=== PATIENT | male | born 1985 | race Caucasian/White ===

== ENCOUNTER 2016-03-26 20:21 | Emergency (ER) | payer MEDICARE, MEDICAID ==
[2016-03-26 21:06] VITALS: BP 133/89
[2016-03-26] MEDS ORDERED: Ofloxacin 0.3% OTIC.SOL* 5 ML BTL RIGHT EAR ONE (21:43)
[2016-03-26] MEDS ORDERED: Amoxicillin PO (*) 500 MG CAP PO ONE (21:43)
[2016-03-26] MEDS ORDERED: HYDROcodone/ACETAMIN 5-325 MG* 1 TAB PO ONE ×2 (21:45→21:46)
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
== END 2016-03-26 22:13 | disposition home or self-care (01) ==
LOC: UCEAST 20:21
DX: H72.91 Unspecified perforation of tympanic membrane, right ear (principal)
CPT/HCPCS: 99212; A9270-GY; G0463

== ENCOUNTER 2016-05-22 15:36 | Emergency (ER) | payer MEDICARE, MEDICAID ==
[2016-05-22 19:11] VITALS: BP 99/64
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
== END 2016-05-22 19:28 | disposition home or self-care (01) ==
LOC: ED 15:36
DX: R56.9 Unspecified convulsions (principal)
CPT/HCPCS: 99282

== ENCOUNTER 2016-06-08 13:36 | Emergency (ER) | payer MEDICARE, MEDICAID ==
[2016-06-08 15:34] LABS: Hematocrit 41 % (42-52); Hemoglobin 13.7 g/dl (14.0-18.0); Mean Corpuscular HGB Conc 34 g/dl (31-36); Mean Corpuscular Hemoglobin 28 pg (27-31); Mean Corpuscular Volume 84 fL (80-94); Mean Platelet Volume 10 um3 (7.4-10.4); Red Blood Count 4.89 10^6/ul (4.0-5.4); Red Cell Distribution Width 14 % (10.5-15); White Blood Count 5.2 10^3/ul (3.5-10.8)
[2016-06-08 15:45] LABS: Albumin 4.4 g/dL (3.2-5.2); Calcium 9.5 mg/dL (8.6-10.3); EGFR African American 134.3 (>60); EGFR Non-African American 104.5 (>60); Globulin 2.8 g/dL (2-4); Potassium 3.7 mmol/L (3.5-5.0); Total Bilirubin 0.5 mg/dL (0.2-1.0); Total Protein 7.2 g/dL (6.4-8.9)
[2016-06-08 17:23] VITALS: BP 104/66
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
== END 2016-06-08 17:27 | disposition home or self-care (01) ==
LOC: ED 13:36
DX: G40.89 Other seizures (principal); R11.0 Nausea
CPT/HCPCS: 36415; 80053; 80164; 83605; 83735; 85025; 85610; 93005; 99283

== ENCOUNTER 2016-06-09 12:49 | Emergency (ER) | payer MEDICARE, MEDICAID ==
[2016-06-09] MEDS ORDERED: NS 0.9% 1000 ML* 1,000 ML IV ONE (13:29)
[2016-06-09 13:49] LABS: Hematocrit 40 % (42-52); Hemoglobin 13.4 g/dl (14.0-18.0); Mean Corpuscular HGB Conc 34 g/dl (31-36); Mean Corpuscular Hemoglobin 28 pg (27-31); Mean Corpuscular Volume 83 fL (80-94); Mean Platelet Volume 9 um3 (7.4-10.4); Red Blood Count 4.83 10^6/ul (4.0-5.4); Red Cell Distribution Width 14 % (10.5-15); White Blood Count 4.5 10^3/ul (3.5-10.8)
[2016-06-09 14:11] LABS: BUN/Creatinine Ratio 21.5 (8-20); C Reactive Protein 5.28 mg/L (< 5.00); Calcium 9.1 mg/dL (8.6-10.3); EGFR African American 146.2 (>60); EGFR Non-African American 113.7 (>60); Globulin 2.7 g/dL (2-4); Magnesium 1.9 mg/dL (1.9-2.7); Potassium 3.9 mmol/L (3.5-5.0); Total Bilirubin 0.5 mg/dL (0.2-1.0); Total Protein 6.7 g/dL (6.4-8.9)
[2016-06-09 14:41] LABS: TSH (Thyroid Stimulating Horm) 1.24 mcIU/mL (0.34-5.60)
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
[2016-06-09 15:15] VITALS: BP 108/73
[2016-06-09 15:31] LABS: Urine Bacteria Absent (Absent); Urine Bilirubin Negative (Negative); Urine Glucose Negative (Negative); Urine Nitrite Negative (Negative)
== END 2016-06-09 15:21 | disposition home or self-care (01) ==
LOC: ED 12:49
DX: G40.802 Other epilepsy, not intractable, without status epilepticus (principal); R55 Syncope and collapse
CPT/HCPCS: 36415; 80053; 80164; 81003; 81015; 82550; 82553; 83605; 83690; 83735; 84443; 85025; 85610; 85730; 86140; 87086; 96360; 99283

== ENCOUNTER 2016-08-05 14:33 | Emergency (ER) | payer MEDICARE, MEDICAID ==
[2016-08-05 14:40] VITALS: BP 135/89
[2016-08-05] MEDS ORDERED: NS 0.9% 1000 ML* 1,000 ML IV SCH (15:45)
[2016-08-05] MEDS ORDERED: Divalproex DR TAB(*) 500 MG PO ONE (15:46)
[2016-08-05] MEDS ORDERED: NS 0.9% 1000 ML* 1,000 ML IV ONE (15:46)
[2016-08-05 16:00] LABS: Hematocrit 41 % (42-52); Hemoglobin 13.9 g/dl (14.0-18.0); Mean Corpuscular HGB Conc 34 g/dl (31-36); Mean Corpuscular Hemoglobin 29 pg (27-31); Mean Corpuscular Volume 86 fL (80-94); Mean Platelet Volume 10 um3 (7.4-10.4); Red Blood Count 4.79 10^6/ul (4.0-5.4); Red Cell Distribution Width 14 % (10.5-15); White Blood Count 5.5 10^3/ul (3.5-10.8)
[2016-08-05 16:11] LABS: Albumin 4.5 g/dL (3.2-5.2); Calcium 9.6 mg/dL (8.6-10.3); EGFR African American 111.4 (>60); EGFR Non-African American 86.6 (>60); Globulin 2.8 g/dL (2-4); Potassium 3.6 mmol/L (3.5-5.0); Total Bilirubin 0.5 mg/dL (0.2-1.0); Total Protein 7.3 g/dL (6.4-8.9)
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
== END 2016-08-05 18:31 | disposition home or self-care (01) ==
LOC: ED 14:33
DX: G40.909 Epilepsy, unspecified, not intractable, without status epilepticus (principal)
CPT/HCPCS: 36415; 80053; 80164; 82550; 83605; 83690; 83735; 85025; 85610; 99284; A9270-GY

== ENCOUNTER 2016-09-15 03:03 | Emergency (ER) | payer MEDICARE, MEDICAID ==
[2016-09-15] MEDS ORDERED: NS 0.9% 1000 ML* 1,000 ML IV ONE (03:13)
[2016-09-15 03:25] LABS: Hematocrit 44 % (42-52); Hemoglobin 14.8 g/dl (14.0-18.0); Mean Corpuscular HGB Conc 34 g/dl (31-36); Mean Corpuscular Hemoglobin 29 pg (27-31); Mean Corpuscular Volume 85 fL (80-94); Mean Platelet Volume 9 um3 (7.4-10.4); Red Blood Count 5.11 10^6/ul (4.0-5.4); Red Cell Distribution Width 13 % (10.5-15); White Blood Count 6.7 10^3/ul (3.5-10.8)
[2016-09-15 03:41] LABS: Albumin 4.5 g/dL (3.2-5.2); BUN/Creatinine Ratio 13.5 (8-20); C Reactive Protein 6.21 mg/L (< 5.00); Calcium 9.3 mg/dL (8.6-10.3); EGFR African American 157.6 (>60); EGFR Non-African American 122.6 (>60); Globulin 2.9 g/dL (2-4); Potassium 3.8 mmol/L (3.5-5.0); Total Bilirubin 0.4 mg/dL (0.2-1.0); Total Protein 7.4 g/dL (6.4-8.9)
[2016-09-15 03:44] LABS: Troponin I 0.01 ng/mL (<0.04)
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
[2016-09-15 04:15] VITALS: BP 127/80
--- NOTE | 2016-09-15 07:54 | RAD ---
Indication: Chest pain. 2 views of the chest are reviewed including dual energy PA views. Comparison is made with previous exam dated December 24, 2015. No mediastinal shift is noted. Heart is of normal size and configuration. Lung colón demonstrate no pleural fluid, pneumonia or pneumothorax. IMPRESSION: No active cardiopulmonary disease is noted.
== END 2016-09-15 04:10 | disposition home or self-care (01) ==
LOC: ED 03:03
DX: R07.9 Chest pain, unspecified (principal); R11.10 Vomiting, unspecified
CPT/HCPCS: 36415; 71020; 80053; 83605; 83690; 84484; 85025; 85610; 86140; 93005; 99282

== ENCOUNTER 2016-10-13 15:17 | Emergency (ER) | payer MEDICARE, MEDICAID ==
[2016-10-13 16:30] LABS: Hematocrit 39 % (42-52); Hemoglobin 13.1 g/dl (14.0-18.0); Mean Corpuscular HGB Conc 34 g/dl (31-36); Mean Corpuscular Hemoglobin 29 pg (27-31); Mean Corpuscular Volume 85 fL (80-94); Mean Platelet Volume 9 um3 (7.4-10.4); Red Blood Count 4.56 10^6/ul (4.0-5.4); Red Cell Distribution Width 13 % (10.5-15); White Blood Count 4.8 10^3/ul (3.5-10.8)
[2016-10-13 16:55] LABS: Albumin 4.1 g/dL (3.2-5.2); BUN/Creatinine Ratio 14.3 (8-20); Calcium 8.8 mg/dL (8.6-10.3); EGFR African American 105.3 (>60); EGFR Non-African American 81.9 (>60); Globulin 2.4 g/dL (2-4); Magnesium 1.8 mg/dL (1.9-2.7); Total Bilirubin 0.3 mg/dL (0.2-1.0); Total Protein 6.5 g/dL (6.4-8.9)
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
[2016-10-13 17:56] VITALS: BP 105/58
[2016-10-13 18:14] LABS: Urine Bilirubin Negative (Negative); Urine Glucose Negative (Negative); Urine Nitrite Negative (Negative)
== END 2016-10-13 18:17 | disposition home or self-care (01) ==
LOC: ED 15:17
DX: G40.909 Epilepsy, unspecified, not intractable, without status epilepticus (principal)
CPT/HCPCS: 36415; 80053; 80164; 81003; 83605; 83735; 85025; 85610; 93005; 99283

== ENCOUNTER 2017-03-31 20:54 | Emergency (ER) | payer MEDICARE, MEDICAID ==
[2017-03-31] MEDS ORDERED: Ketorolac INJ* 30 MG/ML 1 ML VIAL IV PUSH ONE (21:33)
[2017-03-31] MEDS ORDERED: NS 0.9% 1000 ML* 1,000 ML IV ONE (21:33)
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
[2017-03-31 22:09] LABS: ABS Basophils 0 10^3/ul (0-0.2); ABS Eosinophils 0 10^3/ul (0-0.6); ABS Lymphocytes 1.8 10^3/ul (1.0-4.8); ABS Monocytes 0.5 10^3/ul (0-0.8); ABS Neutrophils 2.6 10^3/ul (1.5-7.7); ABS Nucleated RBC 0 10^3/ul; Eosinophil % 0.9 % (0-6); Hematocrit 41 % (42-52); Hemoglobin 14.1 g/dl (14.0-18.0); Lymphocyte % 36.4 % (25-47); Mean Corpuscular HGB Conc 34 g/dl (31-36); Mean Corpuscular Hemoglobin 29 pg (27-31); Mean Corpuscular Volume 84 fL (80-94); Mean Platelet Volume 9 um3 (7.4-10.4); Nucleated Red Blood Cells % 0.1; Platelet Count 142 10^3/ul (150-450); Red Blood Count 4.89 10^6/ul (4.0-5.4); Red Cell Distribution Width 14 % (10.5-15)
[2017-03-31 22:23] LABS: EGFR Non-African American 119.9 (>60)
[2017-03-31 23:24] VITALS: BP 104/60
== END 2017-03-31 23:28 | disposition home or self-care (01) ==
LOC: ED 20:54
DX: R10.9 Unspecified abdominal pain (principal); R19.7 Diarrhea, unspecified
CPT/HCPCS: 36415; 80053; 83690; 85025; 86141; 96374; 99283; J1885

== ENCOUNTER 2017-05-30 15:30 | Emergency (ER) | payer MEDICARE, MEDICAID ==
[2017-05-30] MEDS ORDERED: NS 0.9% 1000 ML* 1,000 ML IV ONE (15:51)
[2017-05-30 16:13] LABS: ABS Basophils 0 10^3/ul (0-0.2); ABS Eosinophils 0.1 10^3/ul (0-0.6); ABS Lymphocytes 1.8 10^3/ul (1.0-4.8); ABS Monocytes 0.4 10^3/ul (0-0.8); ABS Neutrophils 2.4 10^3/ul (1.5-7.7); ABS Nucleated RBC 0 10^3/ul; Eosinophil % 1.7 % (0-6); Hematocrit 39 % (42-52); Hemoglobin 13.4 g/dl (14.0-18.0); Lymphocyte % 37.7 % (25-47); Mean Corpuscular HGB Conc 34 g/dl (31-36); Mean Corpuscular Hemoglobin 29 pg (27-31); Mean Corpuscular Volume 86 fL (80-94); Mean Platelet Volume 8.6 um3 (7.4-10.4); Nucleated Red Blood Cells % 0; Platelet Count 137 10^3/ul (150-450); Red Blood Count 4.57 10^6/ul (4.0-5.4); Red Cell Distribution Width 14 % (10.5-15); White Blood Count 4.7 10^3/ul (3.5-10.8)
[2017-05-30 16:32] LABS: Urine Appearance Clear; Urine Blood Negative (Negative); Urine Color Colorless; Urine Ketones Negative (Negative); Urine Protein Negative (Negative); Urine Specific Gravity 1.001 (1.010-1.030); Urine Urobilinogen Negative (Negative)
[2017-05-30 16:34] LABS: EGFR Non-African American 123.7 (>60)
[2017-05-30] MEDS ORDERED: Divalproex DR TAB(*) 500 MG PO ONE (16:35)
[2017-05-30 16:37] LABS: INR 0.94 (0.77-1.02)
[2017-05-30 17:33] VITALS: BP 122/79
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
== END 2017-05-30 17:32 | disposition home or self-care (01) ==
LOC: ED 15:30
DX: T67.5XXA Heat exhaustion, unspecified, initial encounter (principal); R55 Syncope and collapse; E86.0 Dehydration
CPT/HCPCS: 36415; 80053; 80164; 80307; 81003; 82550; 83605; 83735; 85025; 85610; 93005; 96360; 99283; A9270-GY

== ENCOUNTER 2017-07-07 11:36 | Emergency (ER) | payer MEDICARE, MEDICAID ==
[2017-07-07 11:58] LABS: ABS Basophils 0 10^3/ul (0-0.2); ABS Eosinophils 0.1 10^3/ul (0-0.6); ABS Lymphocytes 1.8 10^3/ul (1.0-4.8); ABS Monocytes 0.5 10^3/ul (0-0.8); ABS Neutrophils 3.9 10^3/ul (1.5-7.7); ABS Nucleated RBC 0 10^3/ul; Eosinophil % 0.8 % (0-6); Hematocrit 41 % (42-52); Lymphocyte % 28.7 % (25-47); Mean Corpuscular HGB Conc 34 g/dl (31-36); Mean Corpuscular Hemoglobin 29 pg (27-31); Mean Corpuscular Volume 84 fL (80-94); Mean Platelet Volume 8.6 um3 (7.4-10.4); Nucleated Red Blood Cells % 0.1; Platelet Count 146 10^3/ul (150-450); Red Blood Count 4.85 10^6/ul (4.0-5.4); Red Cell Distribution Width 13 % (10.5-15); White Blood Count 6.3 10^3/ul (3.5-10.8)
[2017-07-07 12:20] LABS: EGFR Non-African American 105.2 (>60)
[2017-07-07 12:26] LABS: INR 0.96 (0.77-1.02)
--- NOTE | 2017-07-07 12:48 | RAD ---
Indication: Unresponsive. CT of the brain was performed without IV contrast. Intratesticular structures are midline. No midline shift is noted. The extra-axial spaces are unremarkable. There is no evidence of intracranial mass or hemorrhage. No other high or low density lesions are identified. Mastoid air cells and paranasal sinuses are otherwise unremarkable. When compared to previous exam of December 24, 2015 no significant change is noted. IMPRESSION: No intracranial mass or hemorrhage is noted.
[2017-07-07 13:14] LABS: Urine Appearance Clear; Urine Blood Negative (Negative); Urine Color Yellow; Urine Ketones Trace (Negative); Urine Protein Negative (Negative); Urine Specific Gravity 1.029 (1.010-1.030); Urine Urobilinogen Positive (Negative)
[2017-07-07 15:41] VITALS: BP 104/63
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
== END 2017-07-07 15:40 | disposition home or self-care (01) ==
LOC: ED 11:36
DX: G40.909 Epilepsy, unspecified, not intractable, without status epilepticus (principal)
CPT/HCPCS: 36415; 70450; 80053; 80307; 80320; 81003; 83605; 83735; 85025; 85610; 99283; G0480

== ENCOUNTER 2017-08-21 13:11 | Emergency (ER) | payer MEDICARE, MEDICAID ==
[2017-08-21] MEDS ORDERED: NS 0.9% 1000 ML* 1,000 ML IV ONE (13:23)
[2017-08-21 13:59] LABS: ABS Basophils 0 10^3/ul (0-0.2); ABS Eosinophils 0 10^3/ul (0-0.6); ABS Lymphocytes 1.5 10^3/ul (1.0-4.8); ABS Monocytes 0.4 10^3/ul (0-0.8); ABS Neutrophils 2.2 10^3/ul (1.5-7.7); ABS Nucleated RBC 0 10^3/ul; Eosinophil % 0.7 % (0-6); Hematocrit 39 % (42-52); Hemoglobin 13.4 g/dl (14.0-18.0); Lymphocyte % 36.4 % (25-47); Mean Corpuscular HGB Conc 34 g/dl (31-36); Mean Corpuscular Hemoglobin 29 pg (27-31); Mean Corpuscular Volume 83 fL (80-94); Mean Platelet Volume 8.4 um3 (7.4-10.4); Nucleated Red Blood Cells % 0.1; Platelet Count 134 10^3/ul (150-450); Red Blood Count 4.67 10^6/ul (4.00-5.40); Red Cell Distribution Width 13 % (10.5-15); White Blood Count 4.1 10^3/ul (3.5-10.8)
[2017-08-21 14:02] LABS: EGFR Non-African American 114.6 (>60)
[2017-08-21 14:47] VITALS: BP 117/79
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
== END 2017-08-21 14:48 | disposition home or self-care (01) ==
LOC: ED 13:11
DX: R55 Syncope and collapse (principal); R62.50 Unspecified lack of expected normal physiological development in childhood
CPT/HCPCS: 36415; 80048; 85025; 93005; 96360; 99282

== ENCOUNTER 2017-09-09 16:40 | Emergency (ER) | payer MEDICARE, MEDICAID ==
[2017-09-09 17:17] LABS: Hematocrit 41 % (42-52); Mean Corpuscular HGB Conc 34 g/dl (31-36); Mean Corpuscular Hemoglobin 29 pg (27-31); Mean Corpuscular Volume 83 fL (80-94); Mean Platelet Volume 8.4 um3 (7.4-10.4); Platelet Count 202 10^3/ul (150-450); Red Cell Distribution Width 13 % (10.5-15); White Blood Count 4.9 10^3/ul (3.5-10.8)
[2017-09-09 17:24] LABS: INR 0.97 (0.77-1.02)
[2017-09-09 17:34] LABS: EGFR Non-African American 105.2 (>60)
[2017-09-09 18:07] LABS: ABS Basophils 0 10^3/ul (0-0.2); ABS Eosinophils 0 10^3/ul (0-0.6); ABS Lymphocytes 2.1 10^3/ul (1.0-4.8); ABS Monocytes 0.4 10^3/ul (0-0.8); ABS Neutrophils 2.4 10^3/ul (1.5-7.7); ABS Nucleated RBC 0 10^3/ul; Eosinophil % 0.9 % (0-6); Lymphocyte % 41.8 % (25-47); Nucleated Red Blood Cells % 0.1
--- OUTSIDE RECORDS SUMMARY | 2017-09-09 18:09 | XMS REPORT ---
:1985 External Reference #:[id number] Author Organization [employer] Address [address] [place] [address] Phone [phone] Care Team Providers Name Role Phone Catie Jameson MD Primary Care Physician Unavailable Payers Type Date Identification Numbers Payment Provider Subscriber Medicare Primary Policy Number: [id number] Medicare Felice Roman PayID: [id number] [address] [place] [address] [facility] Policy Number: [id number] Medicaid Felice Roman PayID: [id number] [address] [place] [address] Problems Date Description Provider Status Onset: 06/23/2014 Impacted cerezequieln Negrito Herrera M.D. Active Onset: 10/16/2014 Severe cognitive impairment Nanda Castellano M.D. Active Onset: 10/16/2014 Dissociative convulsions Nanda Castellano M.D. Active Onset: 10/16/2014 Myoclonus Nanda Castellano M.D. Active Onset: 11/26/2015 Disturbance in sleep behavior Claribel Acuña MD Active Onset: 11/26/2015 Hypersomnia, unspecified Claribel Acuña MD Active Onset: 01/04/2016 Obstructive sleep apnea syndrome Claribel Acuña MD Active Onset: 04/04/2016 Central perforation of tympanic Negrito Herrera M.D. Active membrane Onset: 04/04/2016 Tympanosclerosis Negrito Herrera M.D. Active Onset: 12/15/2016 Epilepsy, not refractory Artemio Beckett M.D. Active Onset: 12/15/2016 Mental retardation Artemio Beckett M.D. Active Onset: 07/17/2017 Syncope and collapse Artemio Beckett M.D. Active Family History Date Family Member(s) Problem(s) Comments Father non contributory Mother non contributory Siblings 3 Healthy Social History Type Date Description Comments Marital Status Single Occupation Currently Working Occupation [employer] Cigarette Use Never Smoked Cigarettes Cigars Never Smoked Cigars Pipe Never Smoked A Pipe Smokeless Tobacco Never Used Smokeless Tobacco ETOH Use Denies alcohol use Smoking Patient has never smoked Recreational Drug Use Denies Drug Use Daily Caffeine Consumes on average 36oz of soda per day Exercise Type/Frequency Exercises regularly Exercise Type/Frequency Exercises at a health club [facility] [employer] times a week Allergies, Adverse Reactions, Alerts Date Description Reaction Status Severity Comments 12/13/2010 NKDA active Medications Medication Date Status Form Strength Qnty SIG Indications Ordering Provider Listerine 11/24/ Active Liquid Rinse Unknown 2015 15cc in mouth for 30 seconds twice a day Depakote 05/24/ Active Tablets DR 500mg 60tab 1 tab by Rip Fuller MD twice a day Klonopin 03/20/ Active Tablets 1mg 60tab 1 tab by Artemio Beckett M.D. twice a day Guiatuss Clear / Active Syrup 100-10mg/ 200ml 5ml po Unknown DM 0000 5ML q4hrs prn mild cough Tylenol / Active Tablets 325mg 2 tabs Unknown 0000 every 4 hours by mouth minor pain or fever over 100 Bactroban / Active Cream 2% 30uni apply Unknown 0000 ts with dressing changes tid to affected areas until healed, then prn for new areas Zoloft / Active Tablets 100mg 90tab 1 + 1/2 Unknown 0000 s po qd Multi / Active Tablets 100ta 1 tab po Unknown Vitamin/Mineral 0000 bs 1x perday s Full Spectrum Ibuprofen / Active Tablets 200mg 2 tabs Unknown 0000 every 8 hours as needed w/food for pain/infl ammation Triple / Active Ointment 3.5-400-5 apply to Unknown Antibiotic 0000 000 open areas three times a day as needed for cuts/scra pes Vitamin D3 / Active Tablets 2000Unit 1 by Unknown Super Strength 0000 mouth every day Rolaids Extra / Active Chewtabs 675-135mg as needed Unknown Strength 0000 Diazepam / Active Tablets 2mg 1 by Unknown 0000 mouth 1 hour prior to medical/ dental exams Divalproex 06/06/ Hx Tablets DR 500mg 90tab take 1 YoliMk Kendall 2016 - s tab by 11/14/ mouth bid 2016 Naproxen 02/10/ Hx Tablets 500mg 60tab take one Raissa 2014 - s tablet by HUANG Mandel 11/24/ mouth 2015 twice a day as needed Ibuprofen 08/02/ Hx Tablets 200mg 90tab 3 tabs po Rowdy Whyte, 2012 - s tid x 7 M.D. 08/13/ days then 2013 tid prn pain Acetaminophen 08/02/ Hx Tablets 325mg 120ta take 2 Nanda Mclain 2012 - bs tabs po Gray, 10/18/ q4hrs prn M.D. 2015 for minor pain or elevated temp Depakote ER 05/22/ Hx Tablets ER 500mg 60tab 1 tab po Nanda Mclain 2012 - 24HR s bid Gray, 05/24/ M.D. 2013 Divalproex 05/21/ Hx Tablets ER 500mg 60tab 1 tab po Agustina Sodium ER 2013 - 24HR s bid Cyril, 05/21/ M.D. 2012 Klonopin 12/19/ Hx Tablets 1mg 90tab 1 po tid Nanda Mclain 2011 - s Gray, 03/20/ M.D. 2013 Doxycycline / Hx Capsules 50mg 28cap 1 cap po Unknown Hyclate 0000 - s bid 2016 Eryderm / Hx 2% topical Unknown 0000 - three 06/29/ times a 2017 day as needed. Klonopin / Hx Tablets 1mg 60tab 1 po bid Unknown 0000 - s 2011 Depakote / Hx Tablets DR 500mg 60tab 1 tab by Nanda Mclain - s mouth at Gray, 05/22/ bid M.D. 2013 Mirtazapine / Hx Tablets 15mg 1 by Unknown 0000 - mouth every day 2016 at bedtime Seroquel / Hx Tablets 50mg take 1 Unknown 0000 - tablet by 2015 every night at bedtime Amoxicillin / Hx Capsules 500mg 1 po q 12 Unknown 0000 - hours 2016 Ofloxacin / Hx Solution 0.3% 10 drops Unknown (Otic) 0000 - into 2017 ear once daily for 7 days (not currently ) Tylenol W/ / Hx Tablets 5-325mg 1 tab by Unknown Codiene 0000 - mouth every 6 2017 hours as needed pain Immunizations CPT Code Status Date Vaccine Lot # [id number] Given 11/16/2015 Influenza Virus Vaccine, Quadrivalent, Split, Preservative Free Vital Signs Date Vital Result Comment 08/17/2017 Height 70 inches 5'10" Weight 180.12 lb Heart Rate 70 /min BP Systolic 110 mmHg BP Diastolic 66 mmHg BMI (Body Mass Index) 25.8 kg/m2 07/17/2017 Height 70 inches 5'10" Weight 176.00 lb Heart Rate 72 /min BP Systolic Sitting 116 mmHg BP Diastolic Sitting 72 mmHg Respiratory Rate 16 /min BMI (Body Mass Index) 25.3 kg/m2 06/30/2017 Height 70 inches 5'10" Weight 176.38 lb Heart Rate 76 /min BP Systolic Sitting 110 mmHg Rue reg cuff BP Diastolic Sitting 70 mmHg Rue reg cuff Respiratory Rate 16 /min O2 % BldC Oximetry 98 % On Ra BMI (Body Mass Index) 25.3 kg/m2 06/15/2017 Height 70 inches 5'10" Weight 176.50 lb Heart Rate 80 /min BP Systolic Sitting 122 mmHg BP Diastolic Sitting 68 mmHg Respiratory Rate 16 /min BMI (Body Mass Index) 25.3 kg/m2 12/28/2016 Height 70 inches 5'10" Weight 183.38 lb no shoes Heart Rate 78 /min BP Systolic Sitting 120 mmHg Rue reg cuff BP Diastolic Sitting 74 mmHg Rue reg cuff Respiratory Rate 16 /min O2 % BldC Oximetry 98 % On Ra BMI (Body Mass Index) 26.3 kg/m2 12/15/2016 Height 70 inches 5'10" Weight 184.00 lb Heart Rate 78 /min BP Systolic 106 mmHg BP Diastolic 74 mmHg Respiratory Rate 14 /min BMI (Body Mass Index) 26.4 kg/m2 12/05/2016 Height 70 inches 5'10" Weight 180.00 lb Heart Rate 88 /min BP Systolic Sitting 118 mmHg BP Diastolic Sitting 70 mmHg Respiratory Rate 12 /min Pain Level 0 BMI (Body Mass Index) 25.8 kg/m2 09/28/2016 Height 70 inches 5'10" Weight 183.00 lb w/ shoes Heart Rate 86 /min reg BP Systolic Sitting 112 mmHg Rue, reg cuff BP Diastolic Sitting 74 mmHg Rue, reg cuff Respiratory Rate 16 /min O2 % BldC Oximetry 97 % on Ra BMI (Body Mass Index) 26.3 kg/m2 08/01/2016 Height 70 inches 5'10" Weight 180.00 lb Heart Rate 85 /min BP Systolic 124 mmHg BP Diastolic 76 mmHg Respiratory Rate 18 /min O2 % BldC Oximetry 99 % Ra BMI (Body Mass Index) 25.8 kg/m2 05/23/2016 Heart Rate 74 /min BP Systolic 116 mmHg BP Diastolic 78 mmHg Respiratory Rate 16 /min Pain Level 0 O2 % BldC Oximetry 98 % 05/17/2016 Height 70 inches 5'10" Weight 182.00 lb Heart Rate 68 /min BP Systolic Sitting 110 mmHg BP Diastolic Sitting 62 mmHg Respiratory Rate 14 /min BMI (Body Mass Index) 26.1 kg/m2 04/04/2016 Height 70 inches 5'10" Weight 195.00 lb Heart Rate 87 /min BP Systolic Sitting 116 mmHg BP Diastolic Sitting 64 mmHg Respiratory Rate 16 /min Pain Level 4 BMI (Body Mass Index) 28.0 kg/m2 03/22/2016 Height 70 inches 5'10" Weight 195.00 lb Heart Rate 101 /min BP Systolic Sitting 120 mmHg BP Diastolic Sitting 60 mmHg Respiratory Rate 14 /min O2 % BldC Oximetry 97 % BMI (Body Mass Index) 28.0 kg/m2 01/04/2016 Height 70 inches 5'10" Weight 193.00 lb Heart Rate 90 /min BP Systolic Sitting 122 mmHg BP Diastolic Sitting 68 mmHg Respiratory Rate 14 /min O2 % BldC Oximetry 97 % BMI (Body Mass Index) 27.7 kg/m2 11/26/2015 Height 70 inches 5'10" Weight 193.00 lb Heart Rate 98 /min BP Systolic Sitting 120 mmHg BP Diastolic Sitting 66 mmHg Respiratory Rate 14 /min O2 % BldC Oximetry 97 % BMI (Body Mass Index) 27.7 kg/m2 Neck Circumference in inches 16 10/20/2015 Height 70 inches 5'10" Weight 193.38 lb Heart Rate 80 /min BP Systolic Sitting 114 mmHg BP Diastolic Sitting 6 mmHg Respiratory Rate 18 /min O2 % BldC Oximetry 98 % BMI (Body Mass Index) 27.7 kg/m2 04/20/2015 Heart Rate 84 /min BP Systolic Sitting 126 mmHg BP Diastolic Sitting 80 mmHg 04/16/2015 Height 70 inches 5'10" Weight 208.00 lb Heart Rate 70 /min BP Systolic Sitting 102 mmHg BP Diastolic Sitting 60 mmHg Respiratory Rate 17 /min BMI (Body Mass Index) 29.8 kg/m2 01/19/2015 Weight 180.00 lb Heart Rate 72 /min BP Systolic Sitting 126 mmHg BP Diastolic Sitting 82 mmHg 01/16/2015 Height 70 inches 5'10" Weight 180.00 lb Pain Level 5 when hurting BMI (Body Mass Index) 25.8 kg/m2 10/20/2014 Weight 180.00 lb Heart Rate 76 /min BP Systolic Sitting 122 mmHg BP Diastolic Sitting 80 mmHg 10/16/2014 Height 70 inches 5'10" Weight 180.00 lb Heart Rate 64 /min BP Systolic Sitting 122 mmHg BP Diastolic Sitting 74 mmHg Respiratory Rate 14 /min BMI (Body Mass Index) 25.8 kg/m2 06/23/2014 Heart Rate 78 /min BP Systolic Sitting 128 mmHg BP Diastolic Sitting 80 mmHg 05/29/2014 Height 70 inches 5'10" Weight 180.00 lb Heart Rate 86 /min BP Systolic 129 mmHg BP Diastolic 75 mmHg Body Temperature 97.6 F Pain Level 0 BMI (Body Mass Index) 25.8 kg/m2 04/23/2014 Height 70 inches 5'10" Weight 180.00 lb Pain Level 0 BMI (Body Mass Index) 25.8 kg/m2 04/10/2014 Height 70 inches 5'10" Weight 180.00 lb Heart Rate 76 /min BP Systolic Sitting 110 mmHg BP Diastolic Sitting 70 mmHg Respiratory Rate 17 /min BMI (Body Mass Index) 25.8 kg/m2 04/10/2014 Height 70 inches 5'10" Weight 180.00 lb Pain Level 0 BMI (Body Mass Index) 25.8 kg/m2 03/21/2014 Height 70 inches 5'10" Heart Rate 68 /min BP Systolic 115 mmHg BP Diastolic 76 mmHg 02/24/2014 Height 70 inches 5'10" Weight 180.00 lb BMI (Body Mass Index) 25.8 kg/m2 02/17/2014 Heart Rate 76 /min BP Systolic Sitting 122 mmHg BP Diastolic Sitting 78 mmHg 02/10/2014 Height 68 inches 5'8" Weight 180.00 lb Heart Rate 77 /min BP Systolic 111 mmHg BP Diastolic 69 mmHg BMI (Body Mass Index) 27.4 kg/m2 11/04/2013 Heart Rate 80 /min BP Systolic Sitting 128 mmHg BP Diastolic Sitting 80 mmHg 10/03/2013 Height 69 inches 5'9" Weight 183.00 lb Heart Rate 72 /min BP Systolic Sitting 128 mmHg BP Diastolic Sitting 78 mmHg Respiratory Rate 16 /min BMI (Body Mass Index) 27.0 kg/m2 09/25/2013 Height 70 inches 5'10" Weight 180.00 lb Heart Rate 68 /min BMI (Body Mass Index) 25.8 kg/m2 08/14/2013 Height 70 inches 5'10" Weight 180.00 lb Heart Rate 75 /min BMI (Body Mass Index) 25.8 kg/m2 07/24/2013 Heart Rate 74 /min BP Systolic 123 mmHg BP Diastolic 64 mmHg 04/08/2013 Weight 192.00 lb Heart Rate 80 /min BP Systolic Sitting 126 mmHg BP Diastolic Sitting 80 mmHg 04/05/2013 Heart Rate 67 /min BP Systolic Sitting 110 mmHg BP Diastolic Sitting 60 mmHg Respiratory Rate 16 /min 08/02/2012 Heart Rate 64 /min BP Systolic Sitting 114 mmHg BP Diastolic Sitting 62 mmHg Respiratory Rate 12 /min 03/20/2012 Heart Rate 69 /min BP Systolic Sitting 122 mmHg BP Diastolic Sitting 78 mmHg Respiratory Rate 16 /min Results Test Date Test Result H/L Range Note CBC Auto Diff 06/28/2017 White Blood Count 5.4 10^3/uL 3.5-10.8 Red Blood Count 5.07 10^6/uL 4.0-5.4 Hemoglobin 15.0 g/dL 14.0-18.0 Hematocrit 43 % 42-52 Mean Corpuscular Volume 85 fL 80-94 Mean Corpuscular Hemoglobin 30 pg 27-31 Mean Corpuscular HGB Conc 35 g/dL 31-36 Red Cell Distribution Width 13 % 10.5-15 Platelet Count 148 10^3/uL Low 150-450 Mean Platelet Volume 8.9 um3 7.4-10.4 Abs Neutrophils 2.8 10^3/uL 1.5-7.7 Abs Lymphocytes 2.2 10^3/uL 1.0-4.8 Abs Monocytes 0.4 10^3/uL 0-0.8 Abs Eosinophils 0 10^3/uL 0-0.6 Abs Basophils 0 10^3/uL 0-0.2 Abs Nucleated RBC 0 10^3/uL Granulocyte % 50.8 % 38-83 Lymphocyte % 40.2 % 25-47 Monocyte % 7.7 % High 0-7 Eosinophil % 0.9 % 0-6 Basophil % 0.4 % 0-2 Nucleated Red Blood Cells % 0.1 Comp Metabolic Panel 06/28/2017 Sodium 139 mmol/L 139-145 Potassium 4.2 mmol/L 3.5-5.0 Chloride 105 mmol/L 101-111 Co2 Carbon Dioxide 27 mmol/L 22-32 Anion Gap 7 mmol/L 2-11 Glucose 91 mg/dL 70-100 Blood Urea Nitrogen 17 mg/dL 6-24 Creatinine 0.76 mg/dL 0.67-1.17 BUN/Creatinine Ratio 22.4 High 8-20 Calcium 9.2 mg/dL 8.6-10.3 Total Protein 6.9 g/dL 6.4-8.9 Albumin 4.4 g/dL 3.2-5.2 Globulin 2.5 g/dL 2-4 Albumin/Globulin Ratio 1.8 1-3 Total Bilirubin 0.40 mg/dL 0.2-1.0 Alkaline Phosphatase 45 U/L 34-104 Alt 20 U/L 7-52 Ast 20 U/L 13-39 Egfr Non- 118.1 >60 Egfr 151.9 >60 1 Laboratory test finding 06/28/2017 Valproic Acid (Depakene) 98.0 g/mL 50-100 2 CBC Auto Diff 01/06/2017 White Blood Count 5.2 10^3/uL 3.5-10.8 Red Blood Count 5.04 10^6/uL 4.0-5.4 Hemoglobin 14.4 g/dL 14.0-18.0 Hematocrit 42 % 42-52 Mean Corpuscular Volume 83 fL 80-94 Mean Corpuscular Hemoglobin 29 pg 27-31 Mean Corpuscular HGB Conc 34 g/dL 31-36 Red Cell Distribution Width 14 % 10.5-15 Platelet Count 157 10^3/uL 150-450 Mean Platelet Volume 9 um3 7.4-10.4 Abs Neutrophils 2.4 10^3/uL 1.5-7.7 Abs Lymphocytes 2.3 10^3/uL 1.0-4.8 Abs Monocytes 0.5 10^3/uL 0-0.8 Abs Eosinophils 0 10^3/uL 0-0.6 Abs Basophils 0 10^3/uL 0-0.2 Abs Nucleated RBC 0 10^3/uL Granulocyte % 45.6 % 38-83 Lymphocyte % 44.0 % 25-47 Monocyte % 9.2 % High 1-9 Eosinophil % 0.8 % 0-6 Basophil % 0.4 % 0-2 Nucleated Red Blood Cells % 0.1 Comp Metabolic Panel 01/06/2017 Sodium 138 mmol/L 133-145 Potassium 3.9 mmol/L 3.5-5.0 Chloride 104 mmol/L 101-111 Co2 Carbon Dioxide 26 mmol/L 22-32 Anion Gap 8 mmol/L 2-11 Glucose 96 mg/dL 70-100 Blood Urea Nitrogen 18 mg/dL 6-24 Creatinine 0.79 mg/dL 0.67-1.17 BUN/Creatinine Ratio 22.8 High 8-20 Calcium 9.5 mg/dL 8.6-10.3 Total Protein 7.0 g/dL 6.4-8.9 Albumin 4.6 g/dL 3.2-5.2 Globulin 2.4 g/dL 2-4 Albumin/Globulin Ratio 1.9 1-3 Total Bilirubin 0.50 mg/dL 0.2-1.0 Alkaline Phosphatase 57 U/L 34-104 Alt 31 U/L 7-52 Ast 28 U/L 13-39 Egfr Non- 113.7 >60 Egfr 146.2 >60 3 Laboratory test finding 01/06/2017 Valproic Acid (Depakene) 64.0 g/mL 50-100 4 Laboratory test finding 06/08/2016 Lactic Acid 1.2 mmol/L 0.5-2.0 5 CBC Auto Diff 06/08/2016 White Blood Count 5.2 10^3/uL 3.5-10.8 Red Blood Count 4.89 10^6/uL 4.0-5.4 Hemoglobin 13.7 g/dL Low 14.0-18.0 Hematocrit 41 % Low 42-52 Mean Corpuscular Volume 84 fL 80-94 Mean Corpuscular Hemoglobin 28 pg 27-31 Mean Corpuscular HGB Conc 34 g/dL 31-36 Red Cell Distribution Width 14 % 10.5-15 Platelet Count 143 10^3/uL Low 150-450 Mean Platelet Volume 10 um3 7.4-10.4 Abs Neutrophils 2.4 10^3/uL 1.5-7.7 Abs Lymphocytes 2.2 10^3/uL 1.0-4.8 Abs Monocytes 0.5 10^3/uL 0-0.8 Abs Eosinophils 0.1 10^3/uL 0-0.6 Abs Basophils 0 10^3/uL 0-0.2 Abs Nucleated RBC 0.01 10^3/uL Granulocyte % 45.6 % 38-83 Lymphocyte % 42.8 % 25-47 Monocyte % 9.6 % High 1-9 Eosinophil % 1.6 % 0-6 Basophil % 0.4 % 0-2 Nucleated Red Blood Cells % 0.2 Laboratory test finding 06/08/2016 Magnesium 2.0 mg/dL 1.9-2.7 Valproic Acid (Depakene) 131.0 g/mL High 50-100 Comp Metabolic Panel 06/08/2016 Sodium 138 mmol/L 133-145 Potassium 3.7 mmol/L 3.5-5.0 Chloride 102 mmol/L 101-111 Co2 Carbon Dioxide 26 mmol/L 22-32 Anion Gap 10 mmol/L 2-11 Glucose 124 mg/dL High 70-100 Blood Urea Nitrogen 17 mg/dL 6-24 Creatinine 0.85 mg/dL 0.67-1.17 BUN/Creatinine Ratio 20.0 8-20 Calcium 9.5 mg/dL 8.6-10.3 Total Protein 7.2 g/dL 6.4-8.9 Albumin 4.4 g/dL 3.2-5.2 Globulin 2.8 g/dL 2-4 Albumin/Globulin Ratio 1.6 1-3 Total Bilirubin 0.50 mg/dL 0.2-1.0 Alkaline Phosphatase 52 U/L 34-104 Alt 45 U/L 7-52 Ast 45 U/L High 13-39 Egfr Non- 104.5 >60 Egfr 134.3 >60 6 Inr/Protime 06/08/2016 Inr 0.93 0.89-1.11 CBC Auto Diff 05/17/2016 White Blood Count 4.9 10^3/uL 3.5-10.8 Red Blood Count 4.88 10^6/uL 4.0-5.4 Hemoglobin 13.8 g/dL Low 14.0-18.0 Hematocrit 41 % Low 42-52 Mean Corpuscular Volume 83 fL 80-94 Mean Corpuscular Hemoglobin 28 pg 27-31 Mean Corpuscular HGB Conc 34 g/dL 31-36 Red Cell Distribution Width 14 % 10.5-15 Platelet Count 156 10^3/uL 150-450 Mean Platelet Volume 10 um3 7.4-10.4 Abs Neutrophils 2.6 10^3/uL 1.5-7.7 Abs Lymphocytes 1.8 10^3/uL 1.0-4.8 Abs Monocytes 0.5 10^3/uL 0-0.8 Abs Eosinophils 0.1 10^3/uL 0-0.6 Abs Basophils 0 10^3/uL 0-0.2 Abs Nucleated RBC 0 10^3/uL Granulocyte % 52.4 % 38-83 Lymphocyte % 35.9 % 25-47 Monocyte % 9.8 % High 1-9 Eosinophil % 1.3 % 0-6 Basophil % 0.6 % 0-2 Nucleated Red Blood Cells % 0.1 Comp Metabolic Panel 05/17/2016 Sodium 139 mmol/L 133-145 Potassium 4.0 mmol/L 3.5-5.0 Chloride 103 mmol/L 101-111 Co2 Carbon Dioxide 30 mmol/L 22-32 Anion Gap 6 mmol/L 2-11 Glucose 92 mg/dL 70-100 Blood Urea Nitrogen 16 mg/dL 6-24 Creatinine 0.82 mg/dL 0.67-1.17 BUN/Creatinine Ratio 19.5 8-20 Calcium 9.4 mg/dL 8.6-10.3 Total Protein 7.0 g/dL 6.4-8.9 Albumin 4.4 g/dL 3.2-5.2 Globulin 2.6 g/dL 2-4 Albumin/Globulin Ratio 1.7 1-3 Total Bilirubin 0.50 mg/dL 0.2-1.0 Alkaline Phosphatase 61 U/L 34-104 Alt 27 U/L 7-52 Ast 25 U/L 13-39 Egfr Non- 108.9 >60 Egfr 140.0 >60 7 1 Because ethnic data is not always readily available, this report includes an eGFR for both -Americans and non- Americans. The National Kidney Disease Education Program (NKDEP) does not endorse the use of the MDRD equation for patients that are not between the ages of 18 and 70, are , have extremes of body size, muscle mass, or nutritional status, or are non- or non-. According to the National Kidney Foundation, irrespective of diagnosis, the stage of the disease is based on the level of kidney function: Stage Description GFR(mL/min/1.73 m(2)) 1 Kidney damage with normal or decreased GFR 90 2 Kidney damage with mild decrease in GFR 60-89 3 Moderate decrease in GFR 30-59 4 Severe decrease in GFR 15-29 5 Kidney failure <15 (or dialysis) 2 PT NOT FASTING Copy Result to: CATIE JAMESON ([id number]) 3 Because ethnic data is not always readily available, this report includes an eGFR for both -Americans and non- Americans. The National Kidney Disease Education Program (NKDEP) does not endorse the use of the MDRD equation for patients that are not between the ages of 18 and 70, are , have extremes of body size, muscle mass, or nutritional status, or are non- or non-. According to the National Kidney Foundation, irrespective of diagnosis, the stage of the disease is based on the level of kidney function: Stage Description GFR(mL/min/1.73 m(2)) 1 Kidney damage with normal or decreased GFR 90 2 Kidney damage with mild decrease in GFR 60-89 3 Moderate decrease in GFR 30-59 4 Severe decrease in GFR 15-29 5 Kidney failure <15 (or dialysis) 4 Draw prior to AM dose of medication Copy Result to: CATIE JAMESON ([id number]) 5 [place] Severe Sepsis and Septic Shock Management Bundle Measure requires all lactic acids initially measuring >2.0 mmol/L be repeated. 6 Because ethnic data is not always readily available, this report includes an eGFR for both -Americans and non- Americans. The National Kidney Disease Education Program (NKDEP) does not endorse the use of the MDRD equation for patients that are not between the ages of 18 and 70, are , have extremes of body size, muscle mass, or nutritional status, or are non- or non-. According to the National Kidney Foundation, irrespective of diagnosis, the stage of the disease is based on the level of kidney function: Stage Description GFR(mL/min/1.73 m(2)) 1 Kidney damage with normal or decreased GFR 90 2 Kidney damage with mild decrease in GFR 60-89 3 Moderate decrease in GFR 30-59 4 Severe decrease in GFR 15-29 5 Kidney failure <15 (or dialysis) 7 Because ethnic data is not always readily available, this report includes an eGFR for both -Americans and non- Americans. The National Kidney Disease Education Program (NKDEP) does not endorse the use of the MDRD equation for patients that are not between the ages of 18 and 70, are , have extremes of body size, muscle mass, or nutritional status, or are non- or non-. According to the National Kidney Foundation, irrespective of diagnosis, the stage of the disease is based on the level of kidney function: Stage Description GFR(mL/min/1.73 m(2)) 1 Kidney damage with normal or decreased GFR 90 2 Kidney damage with mild decrease in GFR 60-89 3 Moderate decrease in GFR 30-59 4 Severe decrease in GFR 15-29 5 Kidney failure <15 (or dialysis) Procedures Date CPT Code Description Status 06/29/2017 01359 EEG Recording Awake & Drowsy Completed 12/05/2016 14600 Remove Impacted Cerumen Completed 08/01/2016 13563 Remove Impacted Cerumen Completed 04/04/2016 53602 Remove Impacted Cerumen Completed 12/22/2015 28023 Polysomnography Sleep Staging 4+ Parameters Completed 05/11/2015 62171 EEG Recording Awake & Drowsy Completed 04/20/2015 04142 Remove Impacted Cerumen Completed 04/09/2015 66554 EEG Recording Awake & Drowsy Completed 01/19/2015 60794 Remove Impacted Cerumen Completed 10/20/2014 03807 Remove Impacted Cerumen Completed 10/15/2014 06644 EEG Recording Awake & Drowsy Completed 10/10/2014 41858 EEG Recording Awake & Drowsy Completed 06/23/2014 61370 Remove Impacted Cerumen Completed 04/16/2014 78802 Holter Monitoring 24 HR New Completed 02/17/2014 82676 Remove Impacted Cerumen Completed 12/19/2013 32983 EEG Recording Awake & Drowsy Completed 12/19/2013 69126 EEG Recording Awake & Asleep Completed 11/04/2013 16661 Remove Impacted Cerumen Completed 07/29/2013 35754 Remove Impacted Cerumen Completed 04/08/2013 08256 Remove Impacted Cerumen Completed 12/17/2012 26179 Remove Impacted Cerumen Completed 11/22/2011 26405 EEG Recording Awake & Asleep Completed 10/26/2011 45593 Rad Exam; Knee, Ap&L Completed 10/18/2011 94831 Arthroscopy,Knee,ACL Reconstruction Completed 10/18/2011 26988 Arthroscopy,Knee,ACL Reconstruction Completed 10/18/2011 95668 Arthroscopy,Knee,Meniscectomy Media & Lateral Completed 08/22/2011 93804 Remove Impacted Cerumen Completed 01/03/2011 49409 Remove Impacted Cerumen Completed 12/13/2010 18708 Remove Impacted Cerumen Completed 06/03/2010 55928 Rad Exam; Knee Comp Completed Encounters Type Date Location Provider CPT E/M Dx Office Visit 07/17/2017 [facility] Neli Beckett 92889 G40.802 3:00p [facility] R55 Office Visit 06/30/2017 10:00a [facility] Mayuri Alegre 29349 G47.33 [facility] CO[facility] RN, IT BUSINESS ANALYSTYOLIS G47.14 Office Visit 06/15/2017 2:15p [facility] Artemio Beckett 15203 G40.802 [facility] G25.3 Office Visit 03/27/2017 10:50a [facility] [place] [address] L84 B35.3 Office Visit 12/28/2016 10:00a [facility] Mayuri Alegre 93096 G47.33 [facility] RN, EDUARDO G47.10 Office Visit 12/15/2016 10:30a Fabiola Beckett 38887 G40.802 [facility] F79 Office Visit 09/28/2016 2:00p [facility] Mayuri Alegre 56243 G47.33 [facility] SATINDER COLE, [facility] Office Visit 05/23/2016 1:45p [place] Nanda Castellano, 90682 G40.802 Neurologic [facility] Dar Hernandez F79 Office Visit 05/17/2016 10:45a [facility] Nanda Castellano, 61056 F79 [facility] G25.3 Office Visit 04/04/2016 2:00p [facility] Of Negrito Herrera, 35745 H61.23 [facility] [place] Jair.Bautista H74.03 H72.01 Office Visit 03/22/2016 3:00p [facility] Mayuri Alegre, 30050 G47.33 [facility] SATINDER COLE, [facility] Office Visit 01/04/2016 1:45p Pul[facility]ology [place]ibel Ac[place]ña [place] [address] G47.33 [facility] Office Visit 11/26/2015 10:15a Pulmonology [place] [address] G47.9 [facility] G47.10 Office Visit 10/20/2015 11:45a [facility] Nanda Castellano, 80482 F79 [facility] R56.9 G25.3 Office Visit 05/11/2015 10:56a [facility] [address] G40.802 G40.802 Office Visit 04/16/2015 11:45a [facility] Nanda Castellano, 32985 R55 Services Of David Dodge F79 Office Visit 01/16/2015 8:45a [facility], 41910 [id number] C.M.AEvelyn Dodge S83.282D Office Visit 10/20/2014 4:00p [facility] Mar[facility] Lopez M.D. 25389 836.0 C.M.A. 844.2 836.1 Office Visit 10/16/2014 11:45a [facility] Nanda Castellano, 65992 780.2 Services Of David Dodge 345.90 319 Office Visit 10/11/2014 12:42p [facility],pc Arlene Narvaez.PEvelyn 45353 345.90 Hospitalists 315.9 780.97 Office Visit 10/10/2014 11:27a [facility] Nicol[facility] Slade 72978 780.39 Dar Hammer Office Visit 10/10/2014 12:41p [facility], Marie 23516 315.9 Hospitalists Mk Rosales 780.97 345.90 Office Visit 05/29/2014 1:30p [facility] M.D. 21086 719.46 C.M.A. Office Visit 04/23/2014 1:15p [facility] M.D. 34008 719.46 C.M.A. Office Visit 04/10/2014 1:45p [facility] Nanda Castellano, 07729 345.90 Services Of David Dodge 333.2 319 780.2 Office Visit 04/10/2014 10:15a [facility] M.D. 33191 719.46 Of C.M.A. Office Visit 03/21/2014 9:00a [facility] Thaddeus Freedman 83099 719.46 Of C.M.AGio Rivera Office Visit 02/24/2014 2:45p [facility] M.D. 23260 719.46 Of C.M.A. Office Visit 02/10/2014 2:45p [facility] M.D. 60190 836.0 Of C.M.A. Office Visit 10/03/2013 11:45a [facility] Nanda Castellano, 24053 345.90 Services Of David Dodge 333.2 319 780.2 Office Visit 09/25/2013 9:00a [facility] Rowdy Whyte M.D. 47278 844.2 C.M.A. Office Visit 08/14/2013 11:30a [facility] Teresa Ruano 60815 844.2 C.MEvelynAEvelyn RPA-C Office Visit 07/24/2013 2:30p [facility] Ramandeep Ruano RPA-C 59734 844.2 C.M.A. Office Visit 04/05/2013 11:30a [facility] Nanda Castellano, 69215 333.2 Services Of Examination Scorer M.D. 345.90 319 Office Visit 10/31/2012 10:00a [facility] Rowdy Whyte M.D. 87967 844.2 C.M.A. Office Visit 10/18/2012 11:15a [facility] Nanda Castellano, 07185 333.2 Services Of Examination Scorer M.D. 345.90 319 Office Visit 09/17/2012 10:00a [facility] Negrito Herrera, 48501 380.4 [facility].03 389.10 Office Visit 08/02/2012 1:15p [facility] Nanda Castellano, 48197 780.2 Services Of David Dodge 333.2 Office Visit 05/23/2012 1:00p [facility] Rowdy Whyte M.D. 48076 844.2 C.M.A. Office Visit 03/20/2012 11:45a [facility] Nanda Castellano, 07276 780.39 Services Of David Dodge 333.2 319 Office Visit 01/25/2012 9:15a [facility] Rowdy Whyte M.D. 07862 844.2 C.M.A. Office Visit 11/18/2011 3:15p Fabiola Neli Castellano, 01590 333.2 Services Of David Dodge 780.39 Office Visit 08/01/2011 4:00p [facility] Rowdy Whyte M.D. 42679 844.2 C.M.A. Office Visit 06/13/2011 11:00a [facility] Rowdy Whyte M.D. 34993 844.2 C.M.A. 836.0 844.9 Office Visit 06/03/2011 9:45a [facility] Ramandeep Perez RPA-C 13887 717.9 Of C.M.A. Office Visit 01/03/2011 10:30a [facility] Negrito Herrera, 02129 385.03 C.M.A. AT [facility] 380.4 Office Visit 12/13/2010 9:30a [facility] Negrito Herrera, 72540 385.03 C.M.A. AT [facility] 389.10 380.4 Office Visit 06/23/2010 2:30p [facility] Rowdy Whyte M.D. 53950 844.9 C.M.A. 844.2 Office Visit 06/03/2010 2:00p [facility] Rowdy Whyte M.D. 66046 844.9 C.M.A. Plan of Care Future Appointment(s):11/13/2017 3:15 pm - Artemio Beckett M.D. at [facility]08/31/2017 10:00 am - Mayuri Alegre DNP, RN, IT BUSINESS ANALYST- at [facility]08/17/2017 - Artemio Beckett M.D.G40.802 Other epilepsy, not intractable, without status epilepticusFollow up :Follow up in [address] [place] [address] Syncope and collapse
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
[2017-09-09 21:52] VITALS: BP 111/74
== END 2017-09-09 21:52 | disposition home or self-care (01) ==
LOC: ED 16:40
DX: R56.9 Unspecified convulsions (principal)
CPT/HCPCS: 36415; 80053; 80164; 83605; 83735; 85025; 85610; 99283

== ENCOUNTER 2017-09-22 10:49 | Emergency (ER) | payer MEDICARE, MEDICAID ==
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
[2017-09-22 11:25] LABS: ABS Basophils 0.1 10^3/ul (0-0.2); ABS Eosinophils 0.1 10^3/ul (0-0.6); ABS Lymphocytes 1.7 10^3/ul (1.0-4.8); ABS Monocytes 0.5 10^3/ul (0-0.8); ABS Neutrophils 2.5 10^3/ul (1.5-7.7); ABS Nucleated RBC 0 10^3/ul; Eosinophil % 1.1 % (0-6); Hematocrit 41 % (42-52); Hemoglobin 14.1 g/dl (14.0-18.0); Lymphocyte % 35.3 % (25-47); Mean Corpuscular HGB Conc 35 g/dl (31-36); Mean Corpuscular Hemoglobin 29 pg (27-31); Mean Corpuscular Volume 82 fL (80-94); Mean Platelet Volume 8.1 um3 (7.4-10.4); Nucleated Red Blood Cells % 0.1; Platelet Count 151 10^3/ul (150-450); Red Blood Count 4.93 10^6/ul (4.00-5.40); Red Cell Distribution Width 14 % (10.5-15); White Blood Count 4.8 10^3/ul (3.5-10.8)
[2017-09-22 11:45] LABS: EGFR Non-African American 129.9 (>60)
--- NOTE | 2017-09-22 11:51 | RAD ---
HISTORY: seizure COMPARISONS: July 07, 2017 TECHNIQUE: Multiple contiguous axial CT scans were obtained of the head without intravenous contrast. FINDINGS: HEMORRHAGE/INFARCT: There is no hemorrhage or acute infarct. MASSES/SHIFT: There is no mass or shift. EXTRA-AXIAL SPACES: There are no extra-axial fluid collections. SULCI AND VENTRICLES: The sulci and ventricles are normal in size and position for the patient's stated age. CEREBRUM: There are no focal parenchymal abnormalities. BRAINSTEM: There are no focal parenchymal abnormalities. CEREBELLUM: There are no focal parenchymal abnormalities. VESSELS: The vessels are grossly normal. PARANASAL SINUSES: The paranasal sinuses are clear. ORBITS: The orbits are unremarkable. BONES AND SOFT TISSUE: No bone or soft tissue abnormalities are noted. OTHER: None IMPRESSION: NO ACUTE INTRACRANIAL PATHOLOGY.
--- NOTE | 2017-09-22 12:02 | RAD ---
INDICATION: Seizure. COMPARISON: Correlation is made with a prior study from May 14, 2017. TECHNIQUE: AP and lateral views of the chest were obtained. FINDINGS: The heart is within normal limits in size. Mediastinal and hilar contours appear within normal limits. The lungs are underinflated and clear. No pleural effusion is seen. IMPRESSION: NO EVIDENCE FOR ACTIVE CARDIOPULMONARY DISEASE.
[2017-09-22 12:14] LABS: INR 0.93 (0.77-1.02)
--- NOTE | 2017-09-22 13:22 | RAD ---
INDICATION: Pelvic injury. COMPARISON: Correlation is made with a prior study from March 19, 2011. TECHNIQUE: An AP view of the pelvis was obtained. FINDINGS: There is a nondisplaced fracture of the right inferior pubic ramus. No additional fractures are seen. 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 IMPRESSION: FRACTURE OF THE RIGHT INFERIOR PUBIC RAMUS.
[2017-09-22 17:24] VITALS: BP 120/76
== END 2017-09-22 17:23 | disposition home or self-care (01) ==
LOC: ED 10:49
DX: R56.9 Unspecified convulsions (principal); S09.90XA Unspecified injury of head, initial encounter; S32.591A Other specified fracture of right pubis, initial encounter for closed fracture; W18.30XA Fall on same level, unspecified, initial encounter; Y93.E1 Activity, personal bathing and showering; Y92.121 Bathroom in nursing home as the place of occurrence of the external cause; M54.5 Low back pain; R00.0 Tachycardia, unspecified; Z79.01 Long term (current) use of anticoagulants
CPT/HCPCS: 36415; 70450; 71046; 72170; 80053; 80164; 80320; 83605; 83735; 85025; 85610; 99283; G0480

== ENCOUNTER 2017-12-09 12:21 | Emergency (ER) | payer MEDICARE, MEDICAID ==
[2017-12-09] MEDS ORDERED: NS 0.9% 1000 ML* 1,000 ML IV ONE (12:36)
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
[2017-12-09 13:03] LABS: ABS Basophils 0 10^3/ul (0-0.2); ABS Eosinophils 0 10^3/ul (0-0.6); ABS Lymphocytes 2.4 10^3/ul (1.0-4.8); ABS Monocytes 0.6 10^3/ul (0-0.8); ABS Neutrophils 2.6 10^3/ul (1.5-7.7); ABS Nucleated RBC 0 10^3/ul; Eosinophil % 0.6 % (0-6); Hematocrit 43 % (42-52); Hemoglobin 14.7 g/dl (14.0-18.0); Lymphocyte % 42.7 % (25-47); Mean Corpuscular HGB Conc 35 g/dl (31-36); Mean Corpuscular Hemoglobin 28 pg (27-31); Mean Corpuscular Volume 82 fL (80-94); Nucleated Red Blood Cells % 0.3; Platelet Count 136 10^3/ul (150-450); Red Cell Distribution Width 14 % (10.5-15); White Blood Count 5.6 10^3/ul (3.5-10.8)
[2017-12-09 13:12] LABS: EGFR Non-African American 103.8 (>60)
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
--- OUTSIDE RECORDS SUMMARY | 2017-12-09 13:22 | XMS REPORT ---
:1985 External Reference #:[id number] Author Organization [facility] Address [address] [place] [address] [place] [address] Phone [phone] Care Team Providers Name Role Phone Catie Jameson MD Primary Care Physician Unavailable Payers Type Date Identification Numbers Payment Provider Subscriber Medicare Primary Policy Number: [id number] Medicare Felice Roman PayID: [id number] [address] [place] [address] [facility] Policy Number: [id number] Medicaid Felice Roman PayID: [id number] [address] [place] [address] Problems Date Description Provider Status Onset: 06/23/2014 [...] Marital Status Single Occupation Currently Working Occupation [employer], [employer] Cigarette Use Never Smoked Cigarettes Cigars Never [...] a day as needed for cuts/scrap es Vitamin D3 Super Active Tablets 2000Unit 1 by mouth Unknown Strength /0000 every day Rolaids Extra Active Chewtabs 675-135mg as needed Unknown Strength /0000 Benadryl Active Capsules 25mg one tab by Unknown /0000 mouth at bedtime as needed Sertraline HCL Active Tablets 100mg 1 by mouth Unknown /0000 every day Clonazepam Active Tablets 1mg Unknown / Cyclobenzaprine Active Tablets 5mg take one Unknown HCL /0000 tablet by mouth every 8 hours prn. may take a second tablet if first not effetive. Enoxaparin Active Solution 40mg/0.4M 1- 40 mg Unknown Sodium / L injection sq once daily Magnesium Oxide Active Capsules 400mg 1 by mouth Unknown -MG Supplement /0000 every day Levetiracetam 10/19 Hx Tablets 250mg 60tab take one G40.802 oph s tablet by Dar Beckett - mouth 11/20 twice a day Divalproex 06/06 Hx Tablets 500mg 90tab take 1 tab Yoli Jett s by norbert GODWIN - bid 11/14 Naproxen 02/10 Hx Tablets 500mg 60tab take one Raissa /2015 s tablet by HUANG Mandel - mouth 11/24 twice a day as needed Ibuprofen 08/02 Hx Tablets 200mg 90tab 3 tabs po Dirruth Whyte, /2012 s tid x 7 M.D. - days then 08/13 tid prn pain Acetaminophen 08/02 Hx Tablets 325mg 120ta take 2 Nanda . bs tabs po Gray, - q4hrs prn M.DEvelyn 10/18 for minor /2016 pain or elevated temp Depakote ER 05/22 Hx Tablets 500mg 60tab 1 tab po Nanda Adam. ER 24HR s bid Lynette Castellano M.D. 05/24 Divalproex 05/21 Hx Tablets 500mg 60tab 1 tab po Agustina Sodium ER 24HR s bid Lynette Nam M.D. 05/21 Klonopin 12/19 Hx Tablets 1mg 90tab 1 po tid Nanda Mclain /2011 Lynette Coffey M.D. 03/20 Doxycycline Hx Capsules 50mg 28cap 1 cap po Unknown Hyclate /0000 s bid - 05/16 Eryderm Hx 2% topical Unknown /0000 three - times a 06/29 day needed. Klonopin Hx Tablets 1mg 60tab 1 po bid Unknown /0000 s - 12/19 Zoloft Hx Tablets 100mg 90tab 1 + 1/2 po Unknown /0000 s qd - 09/18 Depakote Hx Tablets 500mg 60tab 1 tab by Nanda Mclain / DR blackmon mouth Lynette Avendaño M.D. 05/22 Mirtazapine Hx Tablets 15mg 1 [...] - every 6 05/16 hours needed pain Diazepam 00 Hx Tablets 2mg 1 by mouth Unknown /0000 1 hour - prior to 09/18 dental exams Keflex Hx Capsules 500mg take 1 tab Unknown /0000 by mouth 3 - times 11/192018 Immunizations CPT Code Status Date Vaccine Lot # [id number] Given 11/16/2015 Influenza Virus Vaccine, Quadrivalent, Split, Preservative Free Vital Signs Date Vital Result Comment 11/20/2017 Height 70 inches 5'10" Weight 190.12 [...] Valproic Acid (Depakene) 98.0 g/mL 50-100 2 Laboratory test finding 01/06/2017 Valproic Acid (Depakene) 64.0 g/mL 50-100 3 CBC Auto Diff 01/06/2017 White Blood Count [...] Egfr Non- 113.7 >60 Egfr 146.2 >60 4 Inr/Protime 06/08/2016 Inr 0.93 0.89-1.11 Comp Metabolic Panel 06/08/2016 Sodium 138 mmol/L [...] Non- 104.5 >60 Egfr 134.3 >60 5 Laboratory test finding 06/08/2016 Lactic Acid 1.2 [...] 131.0 g/mL High 50-100 Comp Metabolic Panel 05/17/2016 Sodium 139 mmol/L [...] 2 PT NOT FASTING Copy Result to: CHRISTOPHRAMY CATIE ([id number]) 3 Draw prior to AM dose of medication Copy Result to: GRICELDA CATIE ([id number]) 4 Because ethnic data is not always readily [...] 15-29 5 Kidney failure <15 (or dialysis) 5 Because ethnic data is not always [...] 5 Kidney failure <15 (or dialysis) 6 [place] Severe Sepsis and Septic Shock Management [...] Procedures Date CPT Code Description Status 06/29/2017 30892 EEG Recording Awake & Drowsy Completed 12/05/2016 23114 Remove Impacted Cerumen Completed 08/01/2016 75861 Remove Impacted Cerumen Completed 04/04/2016 58443 Remove Impacted Cerumen Completed 12/22/2015 47898 Polysomnography Sleep Staging 4+ Parameters Completed 05/11/2015 17395 EEG Recording Awake & Drowsy Completed 04/20/2015 57175 Remove Impacted Cerumen Completed 04/09/2015 33988 EEG Recording Awake & Drowsy Completed 01/19/2015 58896 Remove Impacted Cerumen Completed 10/20/2014 83340 Remove Impacted Cerumen Completed 10/15/2014 27683 EEG Recording Awake & Drowsy Completed 10/10/2014 53532 EEG Recording Awake & Drowsy Completed 06/23/2014 37493 Remove Impacted Cerumen Completed 04/16/2014 22720 Holter Monitoring 24 HR New Completed 02/17/2014 96461 Remove Impacted Cerumen Completed 12/19/2013 16800 EEG Recording Awake & Drowsy Completed 12/19/2013 73535 EEG Recording Awake & Asleep Completed 11/04/2013 90190 Remove Impacted Cerumen Completed 07/29/2013 81954 Remove Impacted Cerumen Completed 04/08/2013 89626 Remove Impacted Cerumen Completed 12/17/2012 02798 Remove Impacted Cerumen Completed 11/22/2011 40998 EEG Recording Awake & Asleep Completed 10/26/2011 06982 Rad Exam; Knee, Ap&L Completed 10/18/2011 39143 Arthroscopy,Knee,ACL Reconstruction Completed 10/18/2011 94696 Arthroscopy,Knee,ACL Reconstruction Completed 10/18/2011 25790 Arthroscopy,Knee,Meniscectomy Media & Lateral Completed 08/22/2011 79566 Remove Impacted Cerumen Completed 01/03/2011 91096 Remove Impacted Cerumen Completed 12/13/2010 50050 Remove Impacted Cerumen Completed 06/03/2010 53044 Rad Exam; Knee Comp Completed Encounters Type Date Location Provider CPT E/M Dx Office Visit 10/19/2017 [facility] Artemio Beckett 87487 G40.802 11:00a Dar S32.810D Z79.899 Office Visit 10/06/2017 9:15a [facility] [place] [address] G40.802 S32.810D F79 R33.9 Office Visit 09/29/2017 12:30p [facility] Alejandra Grimaldo D.O. 27394 G40.802 S32.810D L03.113 Office Visit 09/22/2017 9:15a [facility] [place] [address] S06.0x1A R51 M25.561 W07.xxxA M25.551 G40.802 Office Visit 09/04/2017 9:45a [facility] [place] [address] G40.802 S32.810D Office Visit 08/29/2017 9:30a [facility] [place] [address] G40.802 F79 S32.810D Office Visit 08/17/2017 3:15p [facility] Artemio Beckett 36472 G40.802 Services Of [facility] R55 Office Visit 07/17/2017 3:00p [facility] Neli Beckett 77781 G40.802 [facility] R55 Office Visit 06/30/2017 10:00a [facility] Mayuri Alegre 89506 G47.33 Services Of David DNP, RN, [employer] OFFICER-BC G47.14 Office Visit 06/15/2017 2:15p [facility] Artemio Beckett 69760 G40.802 Services Of Wound Treatment Rn M.D. G25.3 Office Visit 03/27/2017 10:50a [facility] [place] [address] L84 B35.3 Office Visit 12/28/2016 10:00a [facility] Mayuri Alegre 23172 G47.33 Services Of [facility] SATINDER COLE, [facility] G47.10 Office Visit 12/15/2016 10:30a [facility] Artemio Beckett 07934 G40.802 Services Of Wound Treatment Rn M.D. F79 Office Visit 09/28/2016 2:00p [facility] Mayuri Alegre, 04613 G47.33 Services Of [facility] SATINDER COLE, [facility] Office Visit 05/23/2016 1:45p [place] [address]458 G40.802 Neurologic Serv Of M.D. [facility] F79 Office Visit 05/17/2016 10:45a [facility] Nanda Castellano, 72012 F79 Services Of Wound Treatment Rn M.D. G25.3 Office Visit 04/04/2016 2:00p E[facility] Services Of Negrito Herrera 47194 H61.23 C.M.A. AT [place] M.D. H74.03 H72.01 Office Visit 03/22/2016 3:00p [facility] Mayuri Alegre 82288 G47.33 Services Of [facility] SATINDER COLE, [facility] Office Visit 01/04/2016 1:45p [facility] [place]ña [place] [address] G47.33 Services Of Wound Treatment Rn Office Visit 11/26/2015 10:15a [facility] [place]ibel Acu[place] [address] G47.9 Services Of Wound Treatment Rn G47.10 Office Visit 10/20/2015 11:45a [facility] Nanda Castellano 39613 F79 Services Of Wound Treatment Rn M.D. R56.9 G25.3 Office Visit 05/11/2015 10:56a [facility] [address] G40.802 G40.802 Office Visit 04/16/2015 11:45a [facility] Nanda Castellano, 49578 R55 Services Of [facility] Dodge F79 Office Visit 01/16/2015 8:45a [facility] Services Of Blanca Perez, 03933 S83.512D C.M.Mechelle Dodge S83.282D Office Visit 10/20/2014 4:00p [facility] Of Marcial Lopez M.D. 90759 836.0 C.M.AEvelyn 844.2 836.1 Office Visit 10/16/2014 11:45a [facility] Nanda Castellano, 48132 780.2 Services Of [facility] Dodge 345.90 319 Office Visit 10/11/2014 12:42p [facility], Claudia Pastrana N.P. 79762 345.90 Hospitalists 315.9 780.97 Office Visit 10/10/2014 11:27a [facility] Nicolás Slade 16371 780.39 Dar Hammer Office Visit 10/10/2014 12:41p [facility], Marie 02635 315.9 Hospitalists Connie N.PEvelyn 780.97 345.90 Office Visit 05/29/2014 1:30p [facility] Of Marcial Lopez M.D. 06401 719.46 C.M.A. Office Visit 04/23/2014 1:15p [facility] Of Blanca Perez M.D. 57231 719.46 C.M.A. Office Visit 04/10/2014 10:15a [facility] Of Blanca Perez M.D. 61124 719.46 C.M.A. Office Visit 04/10/2014 1:45p [facility] Nanda Castellano, 08988 345.90 Services Of [facility] Dodge 333.2 319 780.2 Office Visit 03/21/2014 9:00a [facility] Thaddeus Freedman 97565 719.46 Of C.M.AGio Rivera Office Visit 02/24/2014 2:45p [facility] Blanca Perez M.D. 67187 719.46 Of C.M.A. Office Visit 02/10/2014 2:45p [facility] Blanca Perez M.D. 32049 836.0 Of C.M.A. Office Visit 10/03/2013 11:45a [facility] Nanda Castellano, 10533 345.90 Services Of [facility] 333.2 319 780.2 Office Visit 09/25/2013 9:00a [facility] Of Rowdy Whyte M.D. 93169 844.2 C.M.A. Office Visit 08/14/2013 11:30a [facility] Services Of Teresa Ruano, 60275 844.2 C.M.A. RPA-C Office Visit 07/24/2013 2:30p [facility] Of Ramandeep Ruano, RPA-C 78576 844.2 C.M.A. Office Visit 04/05/2013 11:30a [facility] Neli Castellano, 28753 333.2 Services Of David Adam.Bautista 345.90 319 Office Visit 10/31/2012 10:00a [facility] Of Rowdy Whyte M.D. 71182 844.2 C.M.A. Office Visit 10/18/2012 11:15a [facility] Neli Castellano, 28243 333.2 Services Of [facility] Dodge 345.90 319 Office Visit 09/17/2012 10:00a ENT Services Of Negrito Herrera, 96200 380.4 C.M.A. AT [place] Dar 385.03 389.10 Office Visit 08/02/2012 1:15p [facility] Neli Castellano, 53199 780.2 Services Of [facility] Dodge 333.2 Office Visit 05/23/2012 1:00p [facility] Of Rowdy Whyte M.D. 53210 844.2 C.M.A. Office Visit 03/20/2012 11:45a [facility] Nanda Castellano, 09326 780.39 Services Of [facility] Dodge 333.2 319 Office Visit 01/25/2012 9:15a [facility] Of Rowdy Whyte M.D. 42608 844.2 C.M.A. Office Visit 11/18/2011 3:15p [facility] Nanda Castellano, 74814 333.2 Services Of [facility] Dar 780.39 Office Visit 08/01/2011 4:00p [facility] Of Rowdy Whyte M.D. 64799 844.2 C.M.A. Office Visit 06/13/2011 11:00a [facility] Of Rowdy Whyte M.D. 61802 844.2 C.M.A. 836.0 844.9 Office Visit 06/03/2011 9:45a [facility] Services Ramandeep Perez [facility] 58107 717.9 Of C.M.A. Office Visit 01/03/2011 10:30a ENT Services Of Negrito Herrera, 53210 385.03 C.M.A. AT [facility] 380.4 Office Visit 12/13/2010 9:30a ENT Services Of Negrito Herrera 59729 385.03 C.M.A. AT [facility] 389.10 380.4 Office Visit 06/23/2010 2:30p [facility] Of Rowdy Whyte M.D. 08703 844.9 C.M.A. 844.2 Office Visit 06/03/2010 2:00p [facility] Of Rowdy Whyte M.D. 58349 844.9 C.M.A. Plan of Care Future Appointment(s):12/25/2017 12:00 pm - Artemio Beckett M.D. at [facility] Of [facility]12/05/2017 9:45 am - Mayuri Alegre DNP, RN, [employer] OFFICER- BC at [facility] Services Of [facility]11/20/2017 - Artemio Beckett M.D.G40.802 Other epilepsy, not intractable, without status epilepticusNew Medication:Levetiracetam 500 mgFollow up:Follow up in 1 month, ok to overbook
[2017-12-09 14:51] VITALS: BP 105/74
== END 2017-12-09 14:49 | disposition home or self-care (01) ==
LOC: ED 12:21
DX: G40.909 Epilepsy, unspecified, not intractable, without status epilepticus (principal)
CPT/HCPCS: 36415; 80048; 80164; 85025; 96360; 99282

== ENCOUNTER 2017-12-17 05:18 | Emergency (ER) | payer MEDICARE, MEDICAID ==
[2017-12-17] MEDS ORDERED: NS 0.9% 1000 ML* 1,000 ML IV ONE (05:50)
[2017-12-17] MEDS ORDERED: Ondansetron INJ* 2 MG/ML VIAL IV ONE (05:54)
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
[2017-12-17 06:24] LABS: ABS Basophils 0 10^3/ul (0-0.2); ABS Eosinophils 0.1 10^3/ul (0-0.6); ABS Lymphocytes 2.7 10^3/ul (1.0-4.8); ABS Monocytes 0.5 10^3/ul (0-0.8); ABS Neutrophils 2.4 10^3/ul (1.5-7.7); ABS Nucleated RBC 0 10^3/ul; Hematocrit 42 % (42-52); Hemoglobin 14.6 g/dl (14.0-18.0); Lymphocyte % 47.2 % (25-47); Mean Corpuscular HGB Conc 35 g/dl (31-36); Mean Corpuscular Hemoglobin 28 pg (27-31); Mean Corpuscular Volume 81 fL (80-94); Mean Platelet Volume 8.8 fL (7.4-10.4); Nucleated Red Blood Cells % 0.4; Platelet Count 141 10^3/ul (150-450); Red Blood Count 5.15 10^6/ul (4.00-5.40); Red Cell Distribution Width 15 % (10.5-15); White Blood Count 5.6 10^3/ul (3.5-10.8)
[2017-12-17 06:47] LABS: EGFR Non-African American 109.7 (>60)
[2017-12-17 06:59] LABS: INR 0.98 (0.77-1.02)
[2017-12-17 08:52] LABS: Urine Appearance Clear; Urine Blood Negative (Negative); Urine Color Yellow; Urine Ketones Negative (Negative); Urine Protein Negative (Negative); Urine Specific Gravity 1.027 (1.010-1.030); Urine Urobilinogen Negative (Negative)
[2017-12-17 09:42] VITALS: BP 114/65
== END 2017-12-17 09:41 | disposition home or self-care (01) ==
LOC: ED 05:18
DX: R10.31 Right lower quadrant pain (principal); R11.2 Nausea with vomiting, unspecified
CPT/HCPCS: 36415; 80053; 81003; 83605; 83690; 83735; 85025; 85610; 85730; 86140; 96374; 96376; 99283; J2405

== ENCOUNTER 2018-05-06 13:42 | Observation (INO) | payer MEDICARE, MEDICAID ==
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
[2018-05-06] MEDS ORDERED: NS 0.9% 1000 ML** 1,000 ML IV ONE (14:22)
[2018-05-06 14:34] LABS: ABS Basophils 0 10^3/ul (0-0.2); ABS Eosinophils 0.1 10^3/ul (0-0.6); ABS Lymphocytes 2.3 10^3/ul (1.0-4.8); ABS Monocytes 0.5 10^3/ul (0-0.8); ABS Neutrophils 2.5 10^3/ul (1.5-7.7); ABS Nucleated RBC 0 10^3/ul; Eosinophil % 1.3 %; Hematocrit 38 % (36-46); Hemoglobin 13.4 g/dL (14.0-18.0); Lymphocyte % 42.5 %; Mean Corpuscular HGB Conc 35 g/dL (31-36); Mean Corpuscular Hemoglobin 29 pg (27-31); Mean Corpuscular Volume 83 fL (80-94); Mean Platelet Volume 8.4 fL (7.4-10.4); Nucleated Red Blood Cells % 0.1; Platelet Count 151 10^3/uL (150-450); Red Blood Count 4.61 10^6 /uL (4.18-5.48); Red Cell Distribution Width 14 % (10.5-15); White Blood Count 5.5 10^3/uL (3.5-10.8)
[2018-05-06] MEDS ORDERED: levETIRAcetam IV* 500 MG in NS 0.9% 100 ML* 100 ML IVPB ONE (14:39)
[2018-05-06 14:50] LABS: Albumin 4.3 g/dL (3.2-5.2); Albumin/Globulin Ratio 1.7 (1-3); BUN/Creatinine Ratio 17.1 (8-20); Calcium 9.5 mg/dL (8.6-10.3); EGFR African American 142.1 (>60); EGFR Non-African American 117.4 (>60); Globulin 2.5 g/dL (2-4); Magnesium 1.9 mg/dL (1.9-2.7); Total Bilirubin 0.4 mg/dL (0.2-1.0); Total Protein 6.8 g/dL (6.4-8.9)
[2018-05-06] MEDS ORDERED: clonazePAM TAB(*) 1 MG PO PRN (17:59)
--- NOTE | 2018-05-06 18:20 | ADMNOTE ---
Subjective Date of Service: 05/06/18 Interval History: ADMISSION HISTORY AND PHYSICAL EXAM: Ambulatory Orders Medication Instructions Recorded Divalproex DR TAB(*) [Depakote 500 mg PO BID 05/30/17 DR(*)] Sertraline* [Zoloft*] 100 mg PO DAILY 05/30/17 clonazePAM TAB(*) [KlonoPIN TAB(*)] 1 mg PO BID PRN MDD 2 mg 05/30/17 Acetaminophen TAB* [Tylenol TAB*] 650 mg PO Q6HR PRN 09/09/17 Cyclobenzaprine (NF) 5 mg PO TID PRN 09/09/17 [Cyclobenzaprine 5 MG (NF)] Docusate CAP* [Colace Cap*] 100 mg PO BID 09/09/17 Tamsulosin CAP* [Flomax CAP*] 0.4 mg PO DAILY 09/09/17 oxyCODONE TAB* [Roxycodone TAB 5 5 mg PO Q6H PRN 09/09/17 mg*] Cephalexin CAP* [Keflex CAP*] 500 mg PO TID 09/22/17 Magnesium Hydroxide LIQ* [Milk of 30 ml PO BEDTIME PRN 09/22/17 Magnesia LIQ*] diPHENhydraMINE PO* [Benadryl PO 25 mg PO BEDTIME PRN 09/22/17 25 MG TAB*] Home Medications Medication Instructions Recorded Confirmed Type Divalproex DR TAB(*) [Depakote 500 mg PO BID 05/30/17 05/05/[address](*)] Sertraline* [Zoloft*] 100 mg PO DAILY 05/30/17 05/05/18 History clonazePAM TAB(*) [KlonoPIN TAB(*)] 1 mg PO BID PRN MDD 2 mg 05/30/17 05/05/18 History Acetaminophen TAB* [Tylenol TAB*] 650 mg PO Q6HR PRN 09/09/17 05/05/18 History Cyclobenzaprine (NF) 5 mg PO TID PRN 09/09/17 05/05/18 History [Cyclobenzaprine 5 MG (NF)] Docusate CAP* [Colace Cap*] 100 mg PO BID 09/09/17 05/05/18 History Tamsulosin CAP* [Flomax CAP*] 0.4 mg PO DAILY 09/09/17 05/05/18 History oxyCODONE TAB* [Roxycodone TAB 5 5 mg PO Q6H PRN 09/09/17 05/05/18 History mg*] Cephalexin CAP* [Keflex CAP*] 500 mg PO TID 09/22/17 05/05/18 History Magnesium Hydroxide LIQ* [Milk of 30 ml PO BEDTIME PRN 09/22/17 05/05/18 History Magnesia LIQ*] diPHENhydraMINE PO* [Benadryl PO 25 mg PO BEDTIME PRN 09/22/17 05/05/18 History 25 MG TAB*] HPI: The patient had a seizure while at work and EMS was called and brought him to the ED. He does not recall the seizure. He states he has had 3 seizures today. He states he took all his prescribed medicine. Family History: Findings - unremarkable Social History: Findings - Lives alone, works part-time at [employer]. No alcohol or tobacco use. His sister is his SDM. Takes the bus to work Past Medical History: Findings - Hx seizures since age 2, ? PNEA also. Arthroscopic knee surgery 2010. Review of Systems - Measurements Intake and Output: Intake and Output Last 24 Hours 05/04/18 05/05/18 05/06/18 05/07/18 06:59 06:59 06:59 06:59 Weight 188 lb - Review of Systems Constitutional Symptoms: Negative: Weight Gain, Weight Loss, Weakness, Fatigue, Fever, Night Sweats, Unexplained Falls, Other Dermatology: Positive: Normal HEENT: Positive: Normal Eyes: Positive: Normal Thyroid: Positive: Normal Pulmonary: Positive: Normal Cardiology: Positive: Normal Gastroenterology: Positive: Normal Genital - Urinary: Positive: Normal Genitourinary - Male: Negative: Prostatism, Erectile Dysfunction, Family Hx of Prostate Cancer, Other Musculoskeletal: Negative: Joint Pain, Joint Stiffness, Arthritis, Osteoporosis, Low Back Pain , Sciatica, Joint Deformities, Kyphoscoliosis, Other Endocrinology: Negative: Normal, Thyroid Problems, Adrenal Problems, Gonadal Problems, Family Hx Endocrine Disorders, Obesity, Diabetes Mellitus, Hyperglycemia, Hx Hypoglycemia, Diabetic Foot Ulcers, Calluses, Hirsutism, Menstral Abnormalities , Polydipsia, Polyuria, Gonadal Problems, Gynecomastia, Pituitary disease, Other Hematologic/Lymphatic: Negative: Anemia, Easy Brusing, Hx Leukemia, Hx Lymphoma, Use of Anticoagulant, Use of Antiplatelet Drugs, Other Neurology: Positive: Hx of Seizures Psychiatry: Positive: Normal Allergic/Immunologic: Negative: Hx Anaphylaxis, Hx Angioedema, Hx Environmental, Hx Seasonal, Athsma, Hx HIV, Immunocompromise, Swollen Glands LymphNodes, Other Objective Active Medications: Clonazepam (Klonopin Tab(*)) 1 mg PO BID PRN PRN Reason: ANXIETY Divalproex Sodium (Depakote Dr Tab(*)) 500 mg PO BID LUCAS Sodium Chloride (Ns 0.9% 1000 Ml) 1,000 mls @ 100 mls/hr IV ED ONCE ONE Stop: 05/07/18 00:21 Last Admin: 05/06/18 15:34 Dose: 100 mls/hr Sertraline HCl (Zoloft*) 100 mg PO DAILY LUCAS Vital Signs - 8 hr 05/06/18 05/06/18 05/06/18 13:50 13:54 14:00 Temperature 97.7 F Pulse Rate 77 79 78 Respiratory 15 18 17 Rate Blood Pressure 117/71 117/71 (mmHg) O2 Sat by Pulse 97 96 97 Oximetry 05/06/18 05/06/18 05/06/18 14:24 14:54 15:00 Temperature Pulse Rate 74 71 72 Respiratory 17 14 18 Rate Blood Pressure 115/79 100/69 (mmHg) O2 Sat by Pulse 98 97 97 Oximetry 05/06/18 05/06/18 05/06/18 15:24 15:54 16:00 Temperature Pulse Rate 73 65 73 Respiratory 16 16 17 Rate Blood Pressure 109/63 98/61 (mmHg) O2 Sat by Pulse 96 97 98 Oximetry 05/06/18 05/06/18 05/06/18 16:12 16:24 16:54 Temperature 99.1 F Pulse Rate 70 67 Respiratory 16 17 17 Rate Blood Pressure 99/58 98/61 (mmHg) O2 Sat by Pulse 97 99 Oximetry 05/06/18 05/06/18 05/06/18 17:00 17:24 17:54 Temperature Pulse Rate 67 66 67 Respiratory 16 20 19 Rate Blood Pressure 104/76 104/65 (mmHg) O2 Sat by Pulse 98 99 97 Oximetry 05/06/18 05/06/18 18:00 18:03 Temperature 98.7 F Pulse Rate 72 Respiratory 15 16 Rate Blood Pressure (mmHg) O2 Sat by Pulse 97 Oximetry Oxygen Devices in Use Now: None Appearance: Alert, partly up on ED stretcher. Neutral affect, looks comfortable. Eyes: No Scleral Icterus Neck: NL Appearance and Movements; NL JVP, No Thyroid Enlargement, Masses Respiratory: Symmetrical Chest Expansion and Respiratory Effort, Clear to Auscultation, Clear to Percussion Cardiovascular: NL Sounds; No Murmurs; No JVD, RRR, No Edema, - Extremities: No Edema, No Clubbing, Cyanosis, - Skin: No Nodules or Sclerosis, - - excoriations R shoulder both anteriorly and posteriorly Neurological: Alert and Oriented x 3, NL Sensation Result Diagrams: 05/06/18 14:28 05/06/18 14:28 Assess/Plan/Problems-Billing Assessment: - Patient Problems (1) History of seizures Current Visit: No Status: Chronic Code(s): Z87.898 - PERSONAL HISTORY OF OTHER SPECIFIED CONDITIONS SNOMED Code(s): 864318872 Comment: Place on levetiracetam [address] Nam. Had load of 500 mg in ED. Continue valproc acid and clonazepam. Fup Dr. Beckett. (2) Mood disorder Current Visit: No Status: Acute Priority: High Onset Date: 11/04/14 Comment: Impulse-control disorder in past. Continue sertraline.
[2018-05-06] MEDS: levETIRAcetam TAB* 500 MG PO SCH (20:54)
[2018-05-06] MEDS: Divalproex DR TAB(*) 500 MG PO SCH (20:54)
--- NOTE | 2018-05-06 22:43 | CONS ---
CONSULTATION REPORT: DATE OF CONSULT: 05/06/18 HISTORY OF PRESENT ILLNESS: Felice Roman is a 33-year-old gentleman with history of seizures since about age 2, who has followed with Dr. Castellano and Dr. Beckett as an outpatient, and who has had episodes in the past consistent with psychogenic nonepileptiform attacks with normal EEG during events, now presents with repeat seizures. He has resumed working at [employer] in the last month, this previously was noted to be a stressor in his outpatient visit in June. He takes levetiracetam 250 mg p.o. b.i.d. as well as Depakote 500 mg p.o. b.i.d. and Klonopin 1 mg p.o. b.i.d. as an outpatient. Klonopin and Depakote were thought more likely to be for psychiatric disorder. Dr. Beckett was thinking about tapering his levetiracetam; however, there are no notes in the outpatient record of stopping it. When he came in, it was reported he was not on it. There was some variation in his history. Accordingly, he was given additional 500 mg in the ER. He was in the emergency room on 04/18/18 with an episode. He was in the emergency room yesterday, 05/05/18, with 2 episodes, and today, he had 2 further episodes at work with another episode witnessed by EMS. EMS notes indicate that the staff recognized he was going to have an event and lowered him to the ground and he had 2 tonic-clonic seizures prior to arrival. Another event was noted soon after they arrived and he was given 5 mg of IV Versed and had no further episodes. Mr. Roman's past chart was reviewed and I went through all of his outpatient visit notes from June 2017 onwards since he has seen Dr. Beckett, noting that some of the episodes were questioned to be syncope and may have been because he did not have an enough water. Mr. Roman indicated that sometimes he feels he will overheat before the event, he tries to carry water at work. He had a 72-hour EEG in February which was normal. It was noted that all 7 EEGs from November 2011 to June 2017 were all normal. These all occurred in the setting of anxiety , depression, posttraumatic stress disorder. He was seen in the emergency room in May 2015 with an unresponsive episode, during which he had an EEG which showed no epileptiform activity. There has been no other new stressors noted. He does have a girlfriend, but they are getting along well. He lives in his own apartment and he has caregivers from [facility] come in on weekdays, but he has no one supervising him on the weekends. PAST MEDICAL HISTORY: Includes: 1. Mental retardation/cognitive impairment. 2. Epilepsy and dissociative convulsions. 3. Obstructive sleep apnea, which he tells me he no longer wears his CPAP. 4. Myoclonus. 5. Anxiety. 6. Depression. 7. Posttraumatic stress disorder. 8. He does have a history of picking. MEDICATIONS: Include: 1. Levetiracetam 250 mg p.o. b.i.d. 2. Depakote 500 mg p.o. b.i.d. 3. Klonopin 1 mg p.o. b.i.d. 4. Sertraline 150 mg p.o. daily. 5. Vitamin D 2000 International Units p.o. daily. 6. Multivitamin p.o. daily. 7. Listerine rinse 15 cc in mouth for 30 seconds twice a day. 8. Guiatuss-DM 100/10 mg/5 mL with 5 mL p.o. q.4 hours p.r.n. mild cough. 9. Tylenol 325 mg 2 tablets every 4 hours as needed for mild pain or fever over 100. 10. Bactroban 2% applied to dressing changes t.i.d. to affected areas and then p.r.n. to new areas. 11. Triple antibiotic cream applied to open areas 3 times a day as needed for cuts and scrapes. 12. Ibuprofen 200 mg 2 tabs every 8 hours as needed with food for pain and inflammation. 13. Rolaids Extra Strength 675/135 mg as needed. 14. Diazepam 2 mg p.o. by mouth prior to dental or medical exams. ALLERGIES: There are no known drug allergies. FAMILY HISTORY: Mr. Roman could not contribute any significant family history at this time. There is a history of of a sister in December which was thought to be a possible stress with events at that time. SOCIAL HISTORY: He denies smoking, drinking alcohol, using illicit drugs. He does have a girlfriend. He lives by himself. He has help with [employer] during the weekdays. He is working at [employer]. REVIEW OF SYSTEMS: There has been no headache, change in vision, change in speech, numbness or weakness of arms or legs, change in coordination or gait, change in bowel or bladder habits. He does have skin lesions which are noted in the setting of picking. There has been no joint pain. He denies any other skin conditions. Psychiatric history is as mentioned above. There has been no weight loss, drenching night sweats, or high fevers of unknown reason. He denies any recent symptoms of cold, cough. PHYSICAL EXAM: On examination, his most recent vitals include temperature of 99.1 degree measured temporally, heart rate of 69, respiratory rate 17, saturation 97%, blood pressure 99/58. He had a regular cardiac rhythm. His lungs were clear to auscultation. There were various areas of skin in different stages of healing, small lesions. He was awake, alert. He knew he is in hospital. He could not give me history of what happened during the day, but he remembers breakfast, remembers going to [employer], and was able to get his sister on the phone for further details. He had full extraocular movements with no nystagmus, full colón to confrontation. His pupils were equal and responsive to light. His palate was upgoing. Tongue was midline. Sternocleidomastoid and trapezius were 5/5 in strength. There was normal bulk and tone. No pronator drift. Full strength in the upper and lower extremities with normal [id number]-[id number] and [id number] movements. His reflexes were 3+ and symmetric in the upper and lower extremities. He had normal finger-to- nose and [id number] movements. Gait was not tested at this time. DIAGNOSTIC STUDIES/LAB DATA: Includes review of outpatient chart, review of CT of the brain performed yesterday in the hospital with no significant pathology. This film was reviewed directly. CBC today with normal white count, hemoglobin slightly low at 13.4, normal hematocrit, platelets were 151. Complete metabolic panel which was normal. Valproate was 97; however, this was not a trough level. IMPRESSION AND PLAN: A 33-year-old gentleman with history of seizures since age 2 who has had episodes questioned to be psychogenic nonepileptiform attacks with some episodes occurring with negative EEG, now with repeat seizures in the emergency room with main stressors noted of returning to work. Also is the possibility that he stopped his Keppra. Accordingly, he was given 500 mg of Keppra IV in the emergency room. He lives alone and accordingly with the episodes that he has had, he is not safe to go home. He will be admitted to hospital with seizure precautions and put on his outpatient regimen of levetiracetam 250 mg p.o. b.i.d., Depakote 500 mg p.o. b.i.d., and Klonopin 1 mg p.o. b.i.d. His sister, Brigitte [phone]), he tells is his decision maker. She was reached by phone and agrees with this plan. I would offer oral hydration frequently as he has had spells when he is overheated and drinking water tends to help. We will plan for EEG tomorrow. TIME SPENT: Over an hour was spent in direct patient care and all questions were answered. [id number]/[facility] #: [id number] CHARITO
[2018-05-07] MEDS ORDERED: Valproic Acid IV(*) 500 MG in NS 0.9% 100 ML* 100 ML IVPB ONE (08:40)
[2018-05-07] MEDS ORDERED: LORazepam INJ* 2 MG/ML 1 ML VIAL IV PUSH ONE (08:41)
[2018-05-07] MEDS: levETIRAcetam TAB* 500 MG PO SCH (08:53)
[2018-05-07] MEDS: Sertraline* 100 MG TAB PO SCH (08:55)
[2018-05-07] MEDS: Divalproex DR TAB(*) 500 MG PO SCH ×2 (08:55→21:40)
[2018-05-07] MEDS ORDERED: levETIRAcetam 500 MG IVPREMIX* 500 MG/100 ML BAG IV SCH (09:00)
--- NOTE | 2018-05-07 10:11 | PN ---
Subjective Date of Service: 05/07/18 Length of Stay: 1 Days Neurology is following for seizure-like activity. Interval History: The patient had two episodes of seizure like activity today. At approximately 845, the patient had a four minute episode where he had shaking of the upper and lower extremity uncontrollably. His eyes were closed. The second episode occurred during the EEG recording. I had encouraged the patient that this would be the best time to have a seizure if he was going to have one, and to let us know if one is coming. Three minutes later, as soon as I walked out of the room, I was contacted by the nurse who stated that the patient is shaking again. This was typical to his shaking episodes. He was moving the arms and legs, hitting the side of the bed bilaterally, and had his eyes closed. I placed a tuning fork on his forehead and suddenly he stopped. The event lasted one minute. He was immediately responsive and reported that he was tired. He had no headache. He had no visual disturbance. There was no tongue biting or incontinence. He denied any recent stress. He enjoys working at [employer] and wants to move out of his current apartment to have his own place. He currently cannot invite people over to his house because of his living situation. He has times where he feels down but never thought of hurting himself or others. Brief review of the electronic medical record, the patient has known history of seizures when he was [age] years of age. However, he has been closely monitored by Dr. Castellano, Jaquelin Jett, and now Dr. Beckett. There was concerns that he had non-epileptic seizures. The patient has been weaning off levetiracetam for the past 6 months to help reduce some of the psychiatric side effects that manifest with this medication. He has been loaded with levetiracetam yesterday and today, and he is still having these events. Furthermore, the patient has had multiple EEGs (total of 7 now) that are normal. In addition to today's EEG, the seizure like activity has been recorded with a previous EEG and was described as a non-epileptic pattern. Review of Systems: Denied CP, SOB, or palpitations. Family History: Findings - unremarkable Social History: Findings - Lives alone, works part-time at [employer]. No alcohol or tobacco use. His sister is his SDM. Takes the bus to work Past Medical History: Findings - Hx seizures since age 2, ? PNEA also. Arthroscopic knee surgery 2010. Objective Active Medications: Clonazepam (Klonopin Tab(*)) 1 mg PO BID PRN PRN Reason: ANXIETY Divalproex Sodium (Depakote Dr Tab(*)) 500 mg PO BID [facility] Last Admin: 05/07/18 08:55 Dose: 500 mg Levetiracetam (Keppra Iv Premix*) 500 mg in 100 mls @ 400 mls/hr IV Q12H [facility] Stop: 05/07/18 13:00 Last Admin: 05/07/18 08:44 Dose: 400 mls/hr Sertraline HCl (Zoloft*) 100 mg PO DAILY [facility] Last Admin: 05/07/18 08:55 Dose: 100 mg Vital Signs 05/06/18 05/06/18 05/06/18 13:50 13:54 14:00 Temperature 97.7 F Pulse Rate 77 79 78 Respiratory 15 18 17 Rate Blood Pressure 117/71 117/71 (mmHg) O2 Sat by Pulse 97 96 97 Oximetry 05/06/18 05/06/18 05/06/18 14:24 14:54 15:00 Temperature Pulse Rate 74 71 72 Respiratory 17 14 18 Rate Blood Pressure 115/79 100/69 (mmHg) O2 Sat by Pulse 98 97 97 Oximetry 05/06/18 05/06/18 05/06/18 15:24 15:54 16:00 Temperature Pulse Rate 73 65 73 Respiratory 16 16 17 Rate Blood Pressure 109/63 98/61 (mmHg) O2 Sat by Pulse 96 97 98 Oximetry 05/06/18 05/06/18 05/06/18 16:12 16:24 16:54 Temperature 99.1 F Pulse Rate 70 67 Respiratory 16 17 17 Rate Blood Pressure 99/58 98/61 (mmHg) O2 Sat by Pulse 97 99 Oximetry 05/06/18 05/06/18 05/06/18 17:00 17:24 17:54 Temperature Pulse Rate 67 66 67 Respiratory 16 20 19 Rate Blood Pressure 104/76 104/65 (mmHg) O2 Sat by Pulse 98 99 97 Oximetry 05/06/18 05/06/18 05/06/18 18:00 18:03 18:24 Temperature 98.7 F Pulse Rate 72 67 Respiratory 15 16 17 Rate Blood Pressure 97/62 (mmHg) O2 Sat by Pulse 97 96 Oximetry 05/06/18 05/06/18 05/06/18 18:54 19:00 19:08 Temperature Pulse Rate 79 74 73 Respiratory 21 17 18 Rate Blood Pressure 91/55 (mmHg) O2 Sat by Pulse 96 96 95 Oximetry 05/06/18 05/06/18 05/06/18 19:24 19:54 20:00 Temperature Pulse Rate 75 74 71 Respiratory 16 16 17 Rate Blood Pressure 97/64 99/63 (mmHg) O2 Sat by Pulse 96 96 96 Oximetry 05/06/18 05/06/18 05/06/18 20:37 21:01 23:24 Temperature 97.5 F 98.8 F 97.2 F Pulse Rate 70 71 62 Respiratory 16 17 22 Rate Blood Pressure 103/65 99/63 99/65 (mmHg) O2 Sat by Pulse 97 96 99 Oximetry 05/06/18 05/07/18 05/07/18 23:25 02:49 02:54 Temperature 98.1 F 98.1 F Pulse Rate 62 68 68 Respiratory 22 16 22 Rate Blood Pressure 99/65 103/66 103/66 (mmHg) O2 Sat by Pulse 99 98 98 Oximetry 05/07/18 05/07/18 05/07/18 07:33 08:00 08:05 Temperature 97.4 F 97.4 F Pulse Rate 68 68 Respiratory 16 16 16 Rate Blood Pressure 104/64 104/64 (mmHg) O2 Sat by Pulse 96 97 Oximetry 05/07/18 05/07/18 08:19 08:23 Temperature 97.7 F 97.7 F Pulse Rate 60 59 Respiratory 16 16 Rate Blood Pressure 84/48 84/48 (mmHg) O2 Sat by Pulse 98 98 Oximetry Intake and Output Last 24 Hours 05/05/18 05/06/18 05/07/18 05/08/18 06:59 06:59 06:59 06:59 Intake Total 0 105 Balance 0 105 Weight 192 lb Intake: IVPB 105 Oral 0 Other: # Bowel Movements 0 # Voids 0 Oxygen Devices in Use Now: None Neurology Exam: General: Well nourished, well developed, and in no acute distress HEENT: Normocephelic/atraumatic, sclera anicteric, mucous membranes moist Extremities: No clubbing, cyanosis, or edema Neurological Findings: Awake, alert, and oriented to person, place, and time. He has mild psychomotor slowing. Speech: fluent without dysarthria, repetition intact Cranial Nerve: PERRL, EOM intact, VFF, no nystagmus, face symmetric bilaterally Motor: s/s throughout, proximal and distal extremities x4 tone/bulk normal Sensation: intact to LT/PP bilaterally upper and lower extremities Deep Tendon Reflex: 2+ symmetric in the upper/lower extremities, Babinski - down going Finger to nose, rapid alternating movements intact without tremor, no dysdiadochokinesia Gait: intact with good arm swing and stride Result Diagrams: 05/06/18 14:28 05/06/18 14:28 Assessment/Plan 1. Psychogenic non-epileptic activity (conversion disorder) - Conversion disorder is a diagnosis of exclusion and typically treated with a combination of medication management and psychotherapy. Direct confrontation of suspected conversion disorder is rarely if ever helpful. Rather, would continue to provide supportive care with much positive reinforcement and encouragement. - Certainly the patient can also have underlying epilepsy, but the episode recorded on EEG today, which is stereotypical to the episodes he has had since admission, are non-epileptic. - Levetiracetam is not a good option for him at this time as we are seeing more episodes of non-epileptic spells after he was loaded with levetiracetam. Therefore, we have decided to discontinue the medication. I discussed it with Dr. Beckett who also agrees. - Continue valproic acid 500 mg PO twice daily - Continue Klonopin - Please do not use IV Ativan or load him with any AED therapy - Consult psychiatry. He may benefit by cognitive behavioral therapy - We will need foster care case manager/social media coordinator involvement as the patient may need assistance at home as he may continue to have these episodes once he leaves. The patient does not drive. Time spent: 40 minutes of education and counseling regarding psychogenic non- epileptic activity. I informed the patient that he is having stress related abnormal movements that are not coming from abnormal brain activity, but instead , more of an emotional or behavioral problems that are triggering the movements. He seemed to have agreed but he was unable to share with me any recent problems at home or work. I will sign off but please contact me for any questions or concerns.
--- NOTE | 2018-05-07 13:06 | PN ---
Subjective Date of Service: 05/07/18 Interval History: P)t was seen after CAT called due to seizure activity noted by RN. Pt withdraws to pain, decreased muscle tone noted, nonverbal. Family History: Findings - unremarkable Social History: Findings - Lives alone, works part-time at [employer]. No alcohol or tobacco use. His sister is his SDM. Takes the bus to work Past Medical History: Findings - Hx seizures since age 2, ? PNEA also. Arthroscopic knee surgery 2010. Objective Active Medications: Clonazepam (Klonopin Tab(*)) 1 mg PO BID PRN PRN Reason: ANXIETY Divalproex Sodium (Depakote Dr Tab(*)) 500 mg PO BID [facility] Last Admin: 05/07/18 08:55 Dose: 500 mg Sertraline HCl (Zoloft*) 100 mg PO DAILY [facility] Last Admin: 05/07/18 08:55 Dose: 100 mg Vital Signs - 8 hr 05/07/18 05/07/18 05/07/18 07:33 08:00 08:05 Temperature 97.4 F 97.4 F Pulse Rate 68 68 Respiratory 16 16 16 Rate Blood Pressure 104/64 104/64 (mmHg) O2 Sat by Pulse 96 97 Oximetry 05/07/18 05/07/18 05/07/18 08:19 08:23 08:35 Temperature 97.7 F 97.7 F Pulse Rate 60 59 98 Respiratory 16 16 Rate Blood Pressure 84/48 84/48 139/66 (mmHg) O2 Sat by Pulse 98 98 100 Oximetry 05/07/18 05/07/18 05/07/18 09:05 09:57 11:32 Temperature 96.8 F 97.4 F Pulse Rate 80 98 70 Respiratory 20 20 16 Rate Blood Pressure 108/71 116/69 94/47 (mmHg) O2 Sat by Pulse 100 100 97 Oximetry Oxygen Devices in Use Now: None Appearance: 33 yo M, appears postictal, nonverbal Eyes: No Scleral Icterus, PERRLA Ears/Nose/Mouth/Throat: NL Teeth, Lips, Gums, Mucous Membranes Moist Neck: NL Appearance and Movements; NL JVP, Trachea Midline Respiratory: Symmetrical Chest Expansion and Respiratory Effort, Clear to Auscultation Cardiovascular: NL Sounds; No Murmurs; No JVD, RRR Abdominal: NL Sounds; No Tenderness; No Distention, No Hepatosplenomegaly Lymphatic: No Cervical Adenopathy Extremities: No Edema, No Clubbing, Cyanosis Skin: No Rash or Ulcers, No Nodules or Sclerosis Neurological: - - decreased muscle tone, withdraws to pain in all extremities, nonverbal Result Diagrams: 05/06/18 14:28 05/06/18 14:28 Assess/Plan/Problems-Billing 33 yo M with h/o seizure disorder presents with seizures - Patient Problems (1) Seizure Comment: Appreciate neurology input. 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 psychatry consult ordered. D/c'd Keppra, no ativan advised. Cont Depakote and clonazepam for mood disorder (2) DVT prophylaxis Comment: low risk , ambulation Status and Disposition: OBV
[2018-05-07] MEDS ORDERED: NS 0.9% 1000 ML** 1,000 ML IV SCH (17:00)
--- NOTE | 2018-05-07 17:16 | CONSULT ---
Identification - Patient Identification Reason for Psychiatric Consultation: Incapacitating Symptoms -: Patient is a 33 year old, M admitted on 05/06/18. - MHU Identification Employment Status: Employed Hx Psychiatric Hospitalization: Yes History - Objective HPI: Psychiatry is asked to see this 33 y.o. single, intellectually disabled, employed, white male with a history of seizure disorder and affective problems due to repeat convulsive episodes, recorded during EEG monitoring, and confirmed to be non-epileptic in nature. The patient is known to the [facility] service from 2 prior admissions, in 2009 and 2014, and he is actively receiving mental health services at [facility] in [place], where his next appointment is this May 11. On exam the patient is friendly and cooperative and I do not witness one of his spells, although I understand that they are characterized by intense shaking and unresponsiveness. The patient is asked about stressors which might explain his psychogenic seizures, but he is at a loss to name any. 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 He denies social , relational, academic, occupational, spiritual, familial or legal sources of stress. He seems somewhat unconcerned about his symptoms and denies depressed mood, anxiety, SI, HI or hallucinations. I left a message with his therapist at [facility], for collateral information but have not heard back yet at this time. Exam Appearance: Well Developed/Nourished Hygiene: Normal Grooming: Well Kept Psychomotor Activities: Normal Exhibits Abnormal Movement: No Attitude and Relatedness: Cooperative Eye Contact: Good - Speech Quality: Unpressured Latencies: Normal Quantity: Terse Patient's Decription of Mood: "Okay" Observed Affect: Fair Affect Consistent with: Euthymia Patient's Thought Process: Coherent Thought Content: No Passive Wish, No Suicidal Planning, No Homicidal Ideation, No Paranoid Ideation Experiencing Hallucinations: No, Sensorium is Clear Type of Hallucinations: Visual: No, Auditory: No, Command: No Level of Consciousness: Alert Orientation: Yes Intact, Yes Orientated to Time, Yes Orientated to Place, Yes Orientated to Person Impulse Control: Tenuous Insight and Judgement: Fair Impression - Impression Clinical Impression: 33 y.o. single, intellectually disabled, employed, white male with a history of seizure disorder and affective problems due to repeat convulsive episodes, recorded during EEG monitoring, and confirmed to be non-epileptic in nature. Inpatient DSM-V Dx: F44.9 Merits Inpatient Hospitalization: No BSU: Problem List - Patient Problems (1) Conversion disorder Current Visit: Yes Status: Acute Priority: Medium Code(s): F44.9 - DISSOCIATIVE AND CONVERSION DISORDER, UNSPECIFIED SNOMED Code(s): 70199260 Plan - Treatment Plan Treatment Plan: Recommend supportive care. Patient psychiatrically cleared for discharge. [facility] [place] [facility] Monday, May 11 with therapist Khai Galan. Psychiatry is signing off but can be reconsulted in the event of any significant changes in the patient's presentation. Thank you for the consult. Continued Medication Management: Continue Outpt Medication Medications: Current Medications Clonazepam (Klonopin Tab(*)) 1 mg PO BID PRN PRN Reason: ANXIETY Divalproex Sodium (Depakote Dr Tab(*)) 500 mg PO BID [facility] Last Admin: 05/07/18 08:55 Dose: 500 mg Sodium Chloride (Ns 0.9% 1000 Ml) 1,000 mls @ 150 mls/hr IV PER RATE [facility] Stop: 05/07/18 23:39 Sertraline HCl (Zoloft*) 100 mg PO DAILY [facility] Last Admin: 05/07/18 08:55 Dose: 100 mg - Discharge Plan Discharge Plan: Outpatient Follow Up [facility]
--- NOTE | 2018-05-08 00:50 | EEG ---
ELECTROENCEPHALOGRAPHY: DATE OF STUDY: 05/07/18 - ROOM #414 DATE READ: 05/07/18 REFERRING PHYSICIAN: Cynthia Miles MD. MEDICATIONS: 1. Levetiracetam. 2. Depakote. 3. Sertraline. 4. Clonazepam. 5. Valproic acid. DURATION OF THE STUDY: 9:21 to 10:02 a.m. INDICATION: Mr. Roman is a 33-year-old man with slight psychomotor slowing, who has epilepsy and nonepileptic seizures. This EEG was requested to evaluate for epileptiform abnormalities or electrographic seizures. CLINICAL STATE: Waking. REPORT: The most prominent feature of this recording was capturing a nonepileptic event that took place at 09:54:33 and lasted till 09:56:38. Clinically, the patient had his eyes open, began twitching and jerking the upper extremities with irregular movements of the arms and legs that lasted approximately 1.5 minutes. The patient was able to immediately respond following the incident. The event was stimulated by the examiner telling the patient that it would be appropriate for him to have a seizure at this time while he was connected to the EEG monitor. During the episode, there was diffuse muscle artifact with underlying rhythmic theta and alpha activity that correlated with the patient's head movements. Otherwise, the waking background showed appropriate organization with clearly defined anterior posterior voltage and frequency gradients. There was a well-defined posterior dominant rhythm of 11 Hz, which was symmetrical and showed normal reactivity. Anteriorly, there was an expected pattern of lower voltage, irregular, mixed faster frequency. Hyperventilation and photic stimulation were not performed. Throughout the recording, there were no epileptiform discharges or electrographic seizures. IMPRESSION: This is a normal waking EEG with no evidence of epileptiform discharges or electrographic seizures. The patient had one clinical episode that was consistent with nonepileptic event. [id number]/[facility] #: [id number] [facility] CENTERSue
[2018-05-08] MEDS: Sertraline* 100 MG TAB PO SCH (08:46)
[2018-05-08] MEDS: Divalproex DR TAB(*) 500 MG PO SCH (08:46)
[2018-05-08 08:50] VITALS: BP 129/64
--- NOTE | 2018-05-08 14:00 | DS ---
CC: Dr. Jameson; Dr. Beckett; Dr. Nam; Dr. Loza; Dr. Burns* PRIMARY CARE PROVIDER: Dr. Jameson. NEUROLOGISTS: Dr. Beckett, Dr. Nam, and Dr. Loza, neurologists involved in patient's care here. DATE OF ADMISSION: 05/06/18 DATE OF DISCHARGE: 05/08/18 DISCHARGE DIAGNOSIS: Nonepileptic, psychogenic seizure/pseudoseizures. MEDICATIONS AT DISCHARGE: Include: 1. Acetaminophen on a p.r.n. basis. 2. Clonazepam 1 mg b.i.d. p.r.n. 3. Flexeril 5 mg 3 times a day p.r.n. 4. Benadryl 25 mg at bedtime p.r.n. 5. Depakote ER 500 mg b.i.d. 6. Colace 100 mg b.i.d. 7. Milk of magnesia 30 mL at bedtime p.r.n. 8. Oxycodone 5 mg every 6 hours p.r.n. 9. Zoloft 100 mg daily. 10. Flomax 0.4 mg daily. LABORATORY DATA AND STUDIES PERFORMED DURING THE HOSPITAL STAY: Included valproic acid level on 05/07/18 was 91.0. Patient's EEG performed on 05/07/18 showed, "normal waking EEG and no evidence of epileptiform discharges or electrographic seizures. The patient had one clinical episode during the EEG recording that was consistent with nonepileptic event." Dr. Nam and Dr. Loza. HOSPITALIZATION COURSE: Felice Roman is a 33-year-old male with history of epilepsy as a child and dissociative convulsions as an adult with history of mental retardation/cognitive impairment and who presented to the hospital with recurrent seizures. It happened when Dr. Beckett, patient's primary neurologist, was trying to wean him off Keppra. He came in with recurrent seizures that were deemed to be nonepileptic events. At lease one of them was recorded during his EEG monitoring, which was normal during the episode. The patient was seen by Dr. Nam and Dr. Loza in the hospital stay and diagnosed with nonepileptic seizures, which apparently was also the case when the patient was hospitalized in 2014 for a similar event. At that point the patient had a psychiatric evaluation. After reassurance that the patient's seizures are nonepileptic, the patient felt better and had not seized for the past [address] Burns cleared him from a psychiatric standpoint. He is going to go back to his apartment and under the care of [facility]. His Keppra was discontinued as per neurologist's recommendation. PHYSICAL EXAMINATION: At the time of discharge, blood pressure 129/64, heart rate of 76 and regular, respiratory rate 16, oxygen saturation 98% on room air, temperature 98.0. General: The patient is a very pleasant 33-year-old male who is in no acute distress. Alert, awake, oriented x3. HEENT: Head atraumatic, normocephalic. Eyes, pupils are equal and reactive to light and accommodation. Oropharynx is clear. Mucosa moist. Neck: Supple. No JVD. No bruits bilaterally. Cardiovascular: Regular rate and rhythm. No murmur. Respiratory: Clear to auscultation bilaterally. Abdomen: Soft, nontender. Bowel sounds present in all 4 quadrants. Extremities: There is no edema. Pulses are +2 bilaterally. There is no clubbing or cyanosis. On neuro evaluation, speech is clear. Cranial nerves II through XII grossly intact. Motor strength is 5/5 bilaterally. Please note that this is a short summary of the patient's complicated hospital stay. Please refer to further medical records for details. TIME SPENT: Approximately 35 minutes was spent on the patient's discharge visit. [id number]/[facility] #: [id number] [facility]
== END 2018-05-08 12:00 | disposition home or self-care (01) ==
LOC: ED 13:42 → MED 18:10
PROVIDERS: ADMIT Internal Medicine; ATTEND Internal Medicine
DX: F44.5 Conversion disorder with seizures or convulsions (principal); Z87.898 Personal history of other specified conditions; F39 Unspecified mood [affective] disorder; F79 Unspecified intellectual disabilities; G47.33 Obstructive sleep apnea (adult) (pediatric); G25.3 Myoclonus; F41.9 Anxiety disorder, unspecified; F43.10 Post-traumatic stress disorder, unspecified
CPT/HCPCS: 36415; 80053; 80164; 83735; 85025; 95816; 96361; 96365; 96374; 99285; A9270-GY; G0378

== ENCOUNTER 2018-08-13 15:02 | Emergency (ER) | payer MEDICARE, MEDICAID ==
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
[2018-08-13 16:22] LABS: ABS Lymphocytes 2.1 10^3/ul (1.0-4.8); ABS Monocytes 0.4 10^3/ul (0-0.8); ABS Neutrophils 2.8 10^3/ul (1.5-7.7); Eosinophil % 0.9 %; Hematocrit 39 % (42-52); Hemoglobin 13.4 g/dL (14.0-18.0); Lymphocyte % 39.5 %; Mean Corpuscular HGB Conc 34 g/dL (31-36); Mean Corpuscular Hemoglobin 28 pg (27-31); Mean Corpuscular Volume 82 fL (80-94); Mean Platelet Volume 8.7 fL (7.4-10.4); Nucleated Red Blood Cells % 0.1; Platelet Count 153 10^3/uL (150-450); Red Blood Count 4.74 10^6 /uL (4.18-5.48); Red Cell Distribution Width 14 % (10-15); White Blood Count 5.3 10^3/uL (3.5-10.8)
[2018-08-13 16:28] LABS: INR 0.99 (0.82-1.09)
[2018-08-13 16:49] LABS: Albumin 4.4 g/dL (3.2-5.2); Albumin/Globulin Ratio 1.7 (1-3); BUN/Creatinine Ratio 11.7 (8-20); Calcium 9.4 mg/dL (8.6-10.3); EGFR African American 139.9 (>60); EGFR Non-African American 115.6 (>60); Globulin 2.6 g/dL (2-4); Magnesium 1.9 mg/dL (1.9-2.7); Total Bilirubin 0.4 mg/dL (0.2-1.0)
[2018-08-13 17:54] VITALS: BP 126/83
[2018-08-13 17:58] LABS: Urine Appearance Clear; Urine Bacteria Absent (Absent); Urine Bilirubin Negative (Negative); Urine Blood Negative (Negative); Urine Color Yellow; Urine Glucose Negative (Negative); Urine Ketones Negative (Negative); Urine Nitrite Negative (Negative); Urine Protein Negative (Negative); Urine Red Blood Cell Trace(0-2/hpf) (Absent); Urine Specific Gravity 1.008 (1.010-1.030); Urine Urobilinogen Negative (Negative); Urine White Blood Cell Trace(0-5/hpf) (Absent)
== END 2018-08-13 18:05 | disposition home or self-care (01) ==
LOC: ED 15:02
DX: R56.9 Unspecified convulsions (principal); Z79.899 Other long term (current) drug therapy
CPT/HCPCS: 36415; 80053; 80164; 81003; 83605; 83735; 85025; 85610; 87086; 99283

== ENCOUNTER 2018-08-31 17:21 | Emergency (ER) | payer MEDICARE, MEDICAID ==
[2018-08-31] MEDS ORDERED: Ammonia Inhalant* 1 EA AMP INH ONE (17:42)
[2018-08-31] MEDS ORDERED: Ammonia Inhalant* 1 EA AMP ONE (17:43)
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
[2018-08-31 18:12] LABS: Urine Appearance Cloudy; Urine Bacteria Absent (Absent); Urine Bilirubin Negative (Negative); Urine Blood Negative (Negative); Urine Color Amber; Urine Glucose Negative (Negative); Urine Ketones Trace (Negative); Urine Nitrite Negative (Negative); Urine Protein 2+(100 mg/dL) (Negative); Urine Red Blood Cell Absent (Absent); Urine Specific Gravity 1.034 (1.010-1.030); Urine Urobilinogen Negative (Negative); Urine White Blood Cell Absent (Absent)
[2018-08-31 18:40] LABS: ABS Lymphocytes 1.8 10^3/ul (1.0-4.8); ABS Monocytes 0.5 10^3/ul (0-0.8); ABS Neutrophils 3.1 10^3/ul (1.5-7.7); Eosinophil % 0.6 %; Hematocrit 40 % (42-52); Hemoglobin 13.9 g/dL (14.0-18.0); Lymphocyte % 32.9 %; Mean Corpuscular HGB Conc 34 g/dL (31-36); Mean Corpuscular Hemoglobin 28 pg (27-31); Mean Corpuscular Volume 83 fL (80-94); Mean Platelet Volume 8.6 fL (7.4-10.4); Nucleated Red Blood Cells % 0.1; Platelet Count 155 10^3/uL (150-450); Red Blood Count 4.88 10^6 /uL (4.18-5.48); Red Cell Distribution Width 14 % (10-15); White Blood Count 5.5 10^3/uL (3.5-10.8)
[2018-08-31 18:47] LABS: INR 0.99 (0.82-1.09)
[2018-08-31 19:16] LABS: Albumin 4.6 g/dL (3.2-5.2); Albumin/Globulin Ratio 1.6 (1-3); BUN/Creatinine Ratio 18.5 (8-20); Calcium 9.4 mg/dL (8.6-10.3); EGFR Non-African American 94.2 (>60); Globulin 2.8 g/dL (2-4); Magnesium 2.1 mg/dL (1.9-2.7); Potassium 4.1 mmol/L (3.5-5.0); Total Bilirubin 0.4 mg/dL (0.2-1.0); Total Protein 7.4 g/dL (6.4-8.9)
--- OUTSIDE RECORDS SUMMARY | 2018-08-31 19:52 | XMS REPORT | Continuity of Care Document ---
:1985 External Reference #:[id number] Author Name Sonal Naidu Care Team Providers Name Role Phone Catie Jameson MD Primary Care Physician Unavailable Payers Date Identification Numbers Payment Provider Subscriber Policy Number: [id number] Medicare Felice Roman PayID: [id number] [address] [place] [address] Policy Number: [id number] Medicaid Felice Roman PayID: [id number] [address] [place] [address] Problems Active Problems Provider Date Impacted annelise Herrera M.D. Onset: 06/23/2014 Severe cognitive impairment Nanda Castellano M.D. Onset: 10/16/2014 Dissociative convulsions Nanda Castellano M.D. Onset: 10/16/2014 Myoclonus Nanda Castellano M.D. Onset: 10/16/2014 Disturbance in sleep behavior Claribel Acuña MD Onset: 11/26/2015 Hypersomnia, unspecified Claribel Acuña MD Onset: 11/26/2015 Central perforation of tympanic membrane Negrito Herrera M.D. Onset: Tympanosclerosis Negrito Herrera M.D. Onset: 04/04/2016 Epilepsy, not refractory Artemio Beckett M.D. Onset: 12/15/2016 Intellectual disability Artemio Beckett M.D. Onset: 12/15/2016 Syncope and collapse Artemio Beckett M.D. Onset: 07/17/2017 Multiple fractures of pelvis with stable Artemio Beckett M.D. Onset: 2017 disruption of pelvic ring, subsequent encounter for fracture with routine healing Intellectual disability Artemio Beckett M.D. Onset: 03/12/2018 Seizure Artemio Beckett M.D. Onset: 05/16/2018 Personal history of other specified Artemio Beckett M.D. 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, [employer] Tobacco Use Start: Unknown Never Smoked Cigarettes Tobacco Use Start: Unknown Never Smoked Cigars Tobacco Use Start: Unknown Never Smoked A Pipe Smokeless Tobacco Never Used Smokeless Tobacco ETOH Use Denies alcohol use Tobacco Use Start: Unknown Patient has never smoked Recreational Drug Use Denies Drug Use Smoking Status Reviewed: 08/21/18 Patient has never smoked Exercise Type/Frequency Exercises regularly Exercise Type/Frequency Exercises at a [employer] club 2 times a week Allergies, Adverse Reactions, Alerts Description No Known Drug Allergies Medications Active Medications SIG Qnty Indications Ordering Provider Date Levetiracetam Take One Tablet 60tabs G40.802 Artemio Beckett, 12/25/2017 250mg By Mouth Twice M.D. Tablets A Day Listerine Rinse 15cc in Unknown 11/25/2015 Liquid mouth for 30 seconds twice a day Depakote 1 tab by mouth 60tabs Artemio Beckett, 05/24/2012 500mg Tablets twice a day M.DEvelyn Roblero 1 tab by mouth 60tabs Vimal Burnette, 03/20/2012 1mg Tablets twice a day N.P. Vitamin D3 Super 1 by mouth Unknown Strength every day 2000Unit Tablets Sertraline HCL 1 1/2 by mouth Unknown 100mg every day Tablets Diazepam 1 by mouth 1 Unknown 2mg Tablets hour prior to medical/ dental exams Rolaids Extra as needed Unknown Strength 675-135mg Chewtabs Triple Antibiotic apply to open Unknown areas three 3.5-400-5000 Ointment times a day as needed for cuts/scrapes Ibuprofen 2 tabs every 8 Unknown 200mg Tablets hours as needed w/food for pain/inflammati on Multi 1 tab po 1x 100tabs Unknown Vitamin/Minerals Full perday Spectrum Tablets Bactroban apply with 30units Unknown 2% Cream dressing changes tid to affected areas until healed, then prn for new areas Tylenol 2 tabs every 4 Unknown 325mg Tablets hours by mouth minor pain or fever over 100 Guiatuss Clear DM 5ml po q4hrs 200ml Unknown prn mild cough 100-10mg/5ML Syrup History Medications Levetiracetam Take 1 tablet 60tabs G40.802 Artemio Beckett, 11/20/2017 - 500mg twice a day M.D. 12/25/2017 Tablets Levetiracetam take one tablet 60tabs G40.802 Artemio Beckett, 10/19/2017 - 250mg by mouth twice M.D. 11/20/2017 Tablets a day Divalproex Sodium take 1 tab by 90tabs Yoli Jett MD 06/06/2016 - 500mg mouth bid 11/14/2016 Kenroy Jones take one tablet 60tabs Raissa 02/10/2014 - 500mg Tablets by mouth twice HUANG Mandel 11/25/2015 a day as needed Ibuprofen 3 tabs po tid x 90tabs Rowdy Whyte M.D. 08/02/2012 - 200mg Tablets 7 days then tid 08/13/2013 prn pain Acetaminophen take 2 tabs po 120tabs Nanda Castellano, 08/02/2012 - 325mg q4hrs prn for M.D. 11/20/2017 Tablets minor pain or elevated temp Depakote ER 1 tab po bid 60tabs Nanda Castellano, 05/22/2012 - 500mg M.D. 05/24/2012 Tablets ER 24HR Divalproex Sodium ER 1 tab po bid 60tabs Agustina Nam, 05/21/2012 - M.D. 05/21/2012 500mg Tablets ER 24HR Klonopin 1 po tid 90tabs Nanda Castellano, 12/20/2011 - 1mg Tablets M.D. 03/20/2012 Magnesium Oxide -MG 1 by mouth Unknown - Supplement every day 11/20/2017 400mg Capsules Keflex take 1 tab by Unknown - 500mg Capsules mouth 3 times 11/19/2017 daily Enoxaparin Sodium 1- 40 mg Unknown - injection sq 11/20/2017 40mg/0.4ML Solution once daily Cyclobenzaprine HCL take one tablet Unknown - 5mg by mouth every 11/20/2017 Tablets 8 hours prn. may take a second tablet if first not effetive. Clonazepam Unknown - 1mg Tablets 11/20/2017 Benadryl one tab by Unknown - 25mg Capsules mouth at 12/04/2017 bedtime as needed Vitamin D3 Super 1 by mouth Unknown - Strength every day 11/20/2017 2000Unit Tablets Tylenol W/ Codiene 1 tab by mouth Unknown - every 6 hours 05/16/2016 5-325mg Tablets as needed pain Ofloxacin (Otic) 10 drops into Unknown - 0.3% affected ear 05/16/2016 Solution once daily for 7 days (not currently) Amoxicillin 1 po q 12 hours Unknown - 500mg 05/16/2016 Capsules Seroquel take 1 tablet Unknown - 50mg Tablets by mouth every 10/19/2015 night at bedtime Mirtazapine 1 by mouth Unknown - 15mg every day at 10/19/2015 Tablets bedtime Depakote 1 tab by mouth 60tabs Nanda Castellano, - 500mg Tablets at bid M.D. 05/22/2012 DR Drake 1 + 1/2 po qd 90tabs Unknown - 100mg Tablets 09/18/2017 Klonopin 1 po bid 60tabs Unknown - 1mg Tablets 12/20/2011 Eryderm topical three Unknown - 2% times a day as 06/29/2017 needed. Doxycycline Hyclate 1 cap po bid 28caps Unknown - 05/16/2016 50mg Capsules Immunizations CPT Code Status Date Vaccine Lot # [id number] Given 11/16/2015 Influenza Virus Vaccine, Quadrivalent, Split, Preservative Free Vital Signs Date Vital Result Comment 08/21/2018 10:14am Height 70 inches 5'10" Weight 188.12 lb Heart Rate 78 /min BP Systolic Sitting 110 mmHg BP Diastolic Sitting 64 mmHg Respiratory Rate 18 /min BMI (Body Mass Index) 27.0 kg/m2 05/16/2018 10:14am Height 70 inches 5'10" Weight 184.38 lb Heart Rate 76 /min BP Systolic 112 mmHg BP Diastolic 80 mmHg BMI (Body Mass Index) 26.5 kg/m2 03/12/2018 1:38pm Height 70 inches 5'10" Weight 180.00 lb Heart Rate 74 /min BP Systolic 118 mmHg BP Diastolic 68 mmHg BMI (Body Mass Index) 25.8 kg/m2 02/16/2018 11:23am Height 70 inches 5'10" Weight 180.00 lb Heart Rate 72 /min BP Systolic Sitting 118 mmHg Rue reg cuff BP Diastolic Sitting 84 mmHg Rue reg cuff Respiratory Rate 16 /min O2 % BldC Oximetry 98 % On Ra BMI (Body Mass Index) 25.8 kg/m2 12/25/2017 12:02pm Height 70 inches 5'10" Weight 155.00 lb Heart Rate 76 /min BP Systolic 116 mmHg BP Diastolic 76 mmHg Respiratory Rate 14 /min BMI (Body Mass Index) 22.2 kg/m2 12/05/2017 10:09am Height 70 inches 5'10" Weight 184.50 lb Heart Rate 72 /min BP Systolic Sitting 102 mmHg Rue reg cuff BP Diastolic Sitting 80 mmHg Rue reg cuff Respiratory Rate 16 /min O2 % BldC Oximetry 96 % On Ra BMI (Body Mass Index) 26.5 kg/m2 11/27/2017 1:45pm Height 70 inches 5'10" Weight 190.00 lb BP Systolic Sitting 122 mmHg BP Diastolic Sitting 68 mmHg Respiratory Rate 17 /min Pain Level 0 BMI (Body Mass Index) 27.3 kg/m2 11/20/2017 2:24pm Height 70 inches 5'10" Weight 190.12 lb Heart Rate 88 /min BP Systolic Sitting 118 mmHg BP Diastolic Sitting 72 mmHg Respiratory Rate 16 /min BMI (Body Mass Index) 27.3 kg/m2 10/19/2017 11:09am Heart Rate 78 /min BP Systolic Sitting 120 mmHg BP Diastolic Sitting 76 mmHg 09/29/2017 3:13pm Heart Rate 127 /min BP Systolic 157 mmHg BP Diastolic 91 mmHg O2 % BldC Oximetry 96 % 08/17/2017 3:17pm Height 70 inches 5'10" Weight 180.12 lb Heart Rate 70 /min BP Systolic 110 mmHg BP Diastolic 66 mmHg BMI (Body Mass Index) 25.8 kg/m2 07/17/2017 2:52pm Height 70 inches 5'10" Weight 176.00 lb Heart Rate 72 /min BP Systolic Sitting 116 mmHg BP Diastolic Sitting 72 mmHg Respiratory Rate 16 /min BMI (Body Mass Index) 25.3 kg/m2 06/30/2017 9:51am Height 70 inches 5'10" Weight 176.38 lb Heart Rate 76 /min BP Systolic Sitting 110 mmHg Rue reg cuff BP Diastolic Sitting 70 mmHg Rue reg cuff Respiratory Rate 16 /min O2 % BldC Oximetry 98 % On Ra BMI (Body Mass Index) 25.3 kg/m2 06/15/2017 2:06pm Height 70 inches 5'10" Weight 176.50 lb Heart Rate 80 /min BP Systolic Sitting 122 mmHg BP Diastolic Sitting 68 mmHg Respiratory Rate 16 /min BMI (Body Mass Index) 25.3 kg/m2 12/28/2016 9:46am Height 70 inches 5'10" Weight 183.38 lb no shoes Heart Rate 78 /min BP Systolic Sitting 120 mmHg Rue reg cuff BP Diastolic Sitting 74 mmHg Rue reg cuff Respiratory Rate 16 /min O2 % BldC Oximetry 98 % On Ra BMI (Body Mass Index) 26.3 kg/m2 12/15/2016 10:29am Height 70 inches 5'10" Weight 184.00 lb Heart Rate 78 /min BP Systolic 106 mmHg BP Diastolic 74 mmHg Respiratory Rate 14 /min BMI (Body Mass Index) 26.4 kg/m2 12/05/2016 3:06pm Height 70 inches 5'10" Weight 180.00 lb Heart Rate 88 /min BP Systolic Sitting 118 mmHg BP Diastolic Sitting 70 mmHg Respiratory Rate 12 /min Pain Level 0 BMI (Body Mass Index) 25.8 kg/m2 09/28/2016 1:57pm Height 70 inches 5'10" Weight 183.00 lb w/ shoes Heart Rate 86 /min reg BP Systolic Sitting 112 mmHg Rue, reg cuff BP Diastolic Sitting 74 mmHg Rue, reg cuff Respiratory Rate 16 /min O2 % BldC Oximetry 97 % on Ra BMI (Body Mass Index) 26.3 kg/m2 08/01/2016 3:05pm Height 70 inches 5'10" Weight 180.00 lb Heart Rate 85 /min BP Systolic 124 mmHg BP Diastolic 76 mmHg Respiratory Rate 18 /min O2 % BldC Oximetry 99 % Ra BMI (Body Mass Index) 25.8 kg/m2 05/23/2016 1:33pm Heart Rate 74 /min BP Systolic 116 mmHg BP Diastolic 78 mmHg Respiratory Rate 16 /min Pain Level 0 O2 % BldC Oximetry 98 % 05/17/2016 10:37am Height 70 inches 5'10" Weight 182.00 lb Heart Rate 68 /min BP Systolic Sitting 110 mmHg BP Diastolic Sitting 62 mmHg Respiratory Rate 14 /min BMI (Body Mass Index) 26.1 kg/m2 04/04/2016 1:47pm Height 70 inches 5'10" Weight 195.00 lb Heart Rate 87 /min BP Systolic Sitting 116 mmHg BP Diastolic Sitting 64 mmHg Respiratory Rate 16 /min Pain Level 4 BMI (Body Mass Index) 28.0 kg/m2 03/22/2016 2:56pm Height 70 inches 5'10" Weight 195.00 lb Heart Rate 101 /min BP Systolic Sitting 120 mmHg BP Diastolic Sitting 60 mmHg Respiratory Rate 14 /min O2 % BldC Oximetry 97 % BMI (Body Mass Index) 28.0 kg/m2 01/04/2016 1:46pm Height 70 inches 5'10" Weight 193.00 lb Heart Rate 90 /min BP Systolic Sitting 122 mmHg BP Diastolic Sitting 68 mmHg Respiratory Rate 14 /min O2 % BldC Oximetry 97 % BMI (Body Mass Index) 27.7 kg/m2 11/26/2015 10:46am Height 70 inches 5'10" Weight 193.00 lb Heart Rate 98 /min BP Systolic Sitting 120 mmHg BP Diastolic Sitting 66 mmHg Respiratory Rate 14 /min O2 % BldC Oximetry 97 % BMI (Body Mass Index) 27.7 kg/m2 Neck Circumference in inches 16 10/20/2015 11:53am Height 70 inches 5'10" Weight 193.38 lb Heart Rate 80 /min BP Systolic Sitting 114 mmHg BP Diastolic Sitting 6 mmHg Respiratory Rate 18 /min O2 % BldC Oximetry 98 % BMI (Body Mass Index) 27.7 kg/m2 04/20/2015 2:14pm Heart Rate 84 /min BP Systolic Sitting 126 mmHg BP Diastolic Sitting 80 mmHg 04/16/2015 11:55am Height 70 inches 5'10" Weight 208.00 lb Heart Rate 70 /min BP Systolic Sitting 102 mmHg BP Diastolic Sitting 60 mmHg Respiratory Rate 17 /min BMI (Body Mass Index) 29.8 kg/m2 01/19/2015 2:07pm Weight 180.00 lb Heart Rate 72 /min BP Systolic Sitting 126 mmHg BP Diastolic Sitting 82 mmHg 01/16/2015 8:58am Height 70 inches 5'10" Weight 180.00 lb Pain Level 5 when hurting BMI (Body Mass Index) 25.8 kg/m2 10/20/2014 1:39pm Weight 180.00 lb Heart Rate 76 /min BP Systolic Sitting 122 mmHg BP Diastolic Sitting 80 mmHg 10/16/2014 11:51am Height 70 inches 5'10" Weight 180.00 lb Heart Rate 64 /min BP Systolic Sitting 122 mmHg BP Diastolic Sitting 74 mmHg Respiratory Rate 14 /min BMI (Body Mass Index) 25.8 kg/m2 06/23/2014 1:33pm Heart Rate 78 /min BP Systolic Sitting 128 mmHg BP Diastolic Sitting 80 mmHg 05/29/2014 1:49pm Height 70 inches 5'10" Weight 180.00 lb Heart Rate 86 /min BP Systolic 129 mmHg BP Diastolic 75 mmHg Body Temperature 97.6 F Pain Level 0 BMI (Body Mass Index) 25.8 kg/m2 04/23/2014 1:55pm Height 70 inches 5'10" Weight 180.00 lb Pain Level 0 BMI (Body Mass Index) 25.8 kg/m2 04/10/2014 1:55pm Height 70 inches 5'10" Weight 180.00 lb Heart Rate 76 /min BP Systolic Sitting 110 mmHg BP Diastolic Sitting 70 mmHg Respiratory Rate 17 /min BMI (Body Mass Index) 25.8 kg/m2 04/10/2014 10:29am Height 70 inches 5'10" Weight 180.00 lb Pain Level 0 BMI (Body Mass Index) 25.8 kg/m2 03/21/2014 8:57am Height 70 inches 5'10" Heart Rate 68 /min BP Systolic 115 mmHg BP Diastolic 76 mmHg 02/24/2014 3:06pm Height 70 inches 5'10" Weight 180.00 lb BMI (Body Mass Index) 25.8 kg/m2 02/17/2014 1:48pm Heart Rate 76 /min BP Systolic Sitting 122 mmHg BP Diastolic Sitting 78 mmHg 02/10/2014 2:57pm Height 68 inches 5'8" Weight 180.00 lb Heart Rate 77 /min BP Systolic 111 mmHg BP Diastolic 69 mmHg BMI (Body Mass Index) 27.4 kg/m2 11/04/2013 2:57pm Heart Rate 80 /min BP Systolic Sitting 128 mmHg BP Diastolic Sitting 80 mmHg 10/03/2013 11:21am Height 69 inches 5'9" Weight 183.00 lb Heart Rate 72 /min BP Systolic Sitting 128 mmHg BP Diastolic Sitting 78 mmHg Respiratory Rate 16 /min BMI (Body Mass Index) 27.0 kg/m2 09/25/2013 8:53am Height 70 inches 5'10" Weight 180.00 lb Heart Rate 68 /min BMI (Body Mass Index) 25.8 kg/m2 08/14/2013 10:38am Height 70 inches 5'10" Weight 180.00 lb Heart Rate 75 /min BMI (Body Mass Index) 25.8 kg/m2 07/24/2013 3:04pm Heart Rate 74 /min BP Systolic 123 mmHg BP Diastolic 64 mmHg 04/08/2013 2:12pm Weight 192.00 lb Heart Rate 80 /min BP Systolic Sitting 126 mmHg BP Diastolic Sitting 80 mmHg 04/05/2013 11:25am Heart Rate 67 /min BP Systolic Sitting 110 mmHg BP Diastolic Sitting 60 mmHg Respiratory Rate 16 /min 08/02/2012 1:50pm Heart Rate 64 /min BP Systolic Sitting 114 mmHg BP Diastolic Sitting 62 mmHg Respiratory Rate 12 /min 03/20/2012 11:52am Heart Rate 69 /min BP Systolic Sitting 122 mmHg BP Diastolic Sitting 78 mmHg Respiratory Rate 16 /min Results Test Date Facility Test Result H/L Range Note Laboratory test 12/26/2017 [facility] Valproic Acid 73.0 g/mL N 50-[address] (Depakene) [place] [address] [phone] CBC Auto Diff 06/28/2017 [facility] White Blood 5.4 10^3/uL N 3.5-10.[address] [place] [address] [phone] Red Blood Count 5.07 10^6/uL N 4.0-5.4 Hemoglobin 15.0 g/dL N 14.0-18.0 Hematocrit 43 % N 42-52 Mean Corpuscular Volume 85 fL N 80-94 Mean Corpuscular Hemoglobin 30 pg N 27-31 Mean Corpuscular HGB Conc 35 g/dL N 31-36 Red Cell Distribution Width 13 % N 10.5-15 Platelet Count 148 10^3/uL Low 150-450 Mean Platelet Volume 8.9 um3 N 7.4-10.4 Abs Neutrophils 2.8 10^3/uL N 1.5-7.7 Abs Lymphocytes 2.2 10^3/uL N 1.0-4.8 Abs Monocytes 0.4 10^3/uL N 0-0.8 Abs Eosinophils 0 10^3/uL N 0-0.6 Abs Basophils 0 10^3/uL N 0-0.2 Abs Nucleated RBC 0 10^3/uL Granulocyte % 50.8 % N 38-83 Lymphocyte % 40.2 % N 25-47 Monocyte % 7.7 % High 0-7 Eosinophil % 0.9 % N 0-6 Basophil % 0.4 % N 0-2 Nucleated Red Blood Cells % 0.1 Comp Metabolic Panel 06/28/2017 [facility] Sodium 139 mmol/L N 139-[address] [place] [address] [phone] Potassium 4.2 mmol/L N 3.5-5.0 Chloride 105 mmol/L N 101-111 Co2 Carbon Dioxide 27 mmol/L N 22-32 Anion Gap 7 mmol/L N 2-11 Glucose 91 mg/dL N 70-100 Blood Urea Nitrogen 17 mg/dL N 6-24 Creatinine 0.76 mg/dL N 0.67-1.17 BUN/Creatinine Ratio 22.4 High 8-20 Calcium 9.2 mg/dL N 8.6-10.3 Total Protein 6.9 g/dL N 6.4-8.9 Albumin 4.4 g/dL N 3.2-5.2 Globulin 2.5 g/dL N 2-4 Albumin/Globulin Ratio 1.8 N 1-3 Total Bilirubin 0.40 mg/dL N 0.2-1.0 Alkaline Phosphatase 45 U/L N 34-104 Alt 20 U/L N 7-52 Ast 20 U/L N 13-39 Egfr Non- 118.1 >60 Egfr 151.9 >60 2 Laboratory test 06/28/2017 [facility] Valproic Acid 98.0 g/mL N 50-[address] (Depakene) [place] [address] [phone] CBC Auto Diff 01/06/2017 [facility] White Blood 5.2 10^3/uL N 3.5-10.[address] [place] [address] [phone] Red Blood Count 5.04 10^6/uL N 4.0-5.4 Hemoglobin 14.4 g/dL N 14.0-18.0 Hematocrit 42 % N 42-52 Mean Corpuscular Volume 83 fL N 80-94 Mean Corpuscular Hemoglobin 29 pg N 27-31 Mean Corpuscular HGB Conc 34 g/dL N 31-36 Red Cell Distribution Width 14 % N 10.5-15 Platelet Count 157 10^3/uL N 150-450 Mean Platelet Volume 9 um3 N 7.4-10.4 Abs Neutrophils 2.4 10^3/uL N 1.5-7.7 Abs Lymphocytes 2.3 10^3/uL N 1.0-4.8 Abs Monocytes 0.5 10^3/uL N 0-0.8 Abs Eosinophils 0 10^3/uL N 0-0.6 Abs Basophils 0 10^3/uL N 0-0.2 Abs Nucleated RBC 0 10^3/uL Granulocyte % 45.6 % N 38-83 Lymphocyte % 44.0 % N 25-47 Monocyte % 9.2 % High 1-9 Eosinophil % 0.8 % N 0-6 Basophil % 0.4 % N 0-2 Nucleated Red Blood Cells % 0.1 Comp Metabolic Panel 01/06/2017 [facility] Sodium 138 mmol/L N 133-[address] [place] [address] [phone] Potassium 3.9 mmol/L N 3.5-5.0 Chloride 104 mmol/L N 101-111 Co2 Carbon Dioxide 26 mmol/L N 22-32 Anion Gap 8 mmol/L N 2-11 Glucose 96 mg/dL N 70-100 Blood Urea Nitrogen 18 mg/dL N 6-24 Creatinine 0.79 mg/dL N 0.67-1.17 BUN/Creatinine Ratio 22.8 High 8-20 Calcium 9.5 mg/dL N 8.6-10.3 Total Protein 7.0 g/dL N 6.4-8.9 Albumin 4.6 g/dL N 3.2-5.2 Globulin 2.4 g/dL N 2-4 Albumin/Globulin Ratio 1.9 N 1-3 Total Bilirubin 0.50 mg/dL N 0.2-1.0 Alkaline Phosphatase 57 U/L N 34-104 Alt 31 U/L N 7-52 Ast 28 U/L N 13-39 Egfr Non- 113.7 >60 Egfr 146.2 >60 4 Laboratory test 01/06/2017 [facility] Valproic Acid 64.0 g/mL N 50-[address] (Depakene) [place] [address] [phone] Inr/Protime 06/08/2016 [facility] Inr 0.93 N 0.89-1.[address] [place] [address] [phone] Laboratory test 06/08/2016 [facility] Lactic Acid 1.2 mmol/L N 0.5-2.[address] [place] [address] [phone] CBC Auto Diff 06/08/2016 [facility] White Blood 5.2 10^3/uL N 3.5-10.[address] [place] [address] [phone] Red Blood Count 4.89 10^6/uL N 4.0-5.4 Hemoglobin 13.7 g/dL Low 14.0-18.0 Hematocrit 41 % Low 42-52 Mean Corpuscular Volume 84 fL N 80-94 Mean Corpuscular Hemoglobin 28 pg N 27-31 Mean Corpuscular HGB Conc 34 g/dL N 31-36 Red Cell Distribution Width 14 % N 10.5-15 Platelet Count 143 10^3/uL Low 150-450 Mean Platelet Volume 10 um3 N 7.4-10.4 Abs Neutrophils 2.4 10^3/uL N 1.5-7.7 Abs Lymphocytes 2.2 10^3/uL N 1.0-4.8 Abs Monocytes 0.5 10^3/uL N 0-0.8 Abs Eosinophils 0.1 10^3/uL N 0-0.6 Abs Basophils 0 10^3/uL N 0-0.2 Abs Nucleated RBC 0.01 10^3/uL N Granulocyte % 45.6 % N 38-83 Lymphocyte % 42.8 % N 25-47 Monocyte % 9.6 % High 1-9 Eosinophil % 1.6 % N 0-6 Basophil % 0.4 % N 0-2 Nucleated Red Blood Cells % 0.2 N Laboratory test 06/08/2016 [facility] Magnesium 2.0 mg/dL N 1.9-2.[address] [place] [address] [phone] Valproic Acid (Depakene) 131.0 g/mL High 50-100 Comp Metabolic Panel 06/08/2016 [facility] Sodium 138 mmol/L N 133-[address] [place] [address] [phone] Potassium 3.7 mmol/L N 3.5-5.0 Chloride 102 mmol/L N 101-111 Co2 Carbon Dioxide 26 mmol/L N 22-32 Anion Gap 10 mmol/L N 2-11 Glucose 124 mg/dL High 70-100 Blood Urea Nitrogen 17 mg/dL N 6-24 Creatinine 0.85 mg/dL N 0.67-1.17 BUN/Creatinine Ratio 20.0 N 8-20 Calcium 9.5 mg/dL N 8.6-10.3 Total Protein 7.2 g/dL N 6.4-8.9 Albumin 4.4 g/dL N 3.2-5.2 Globulin 2.8 g/dL N 2-4 Albumin/Globulin Ratio 1.6 N 1-3 Total Bilirubin 0.50 mg/dL N 0.2-1.0 Alkaline Phosphatase 52 U/L N 34-104 Alt 45 U/L N 7-52 Ast 45 U/L High 13-39 Egfr Non- 104.5 N >60 Egfr 134.3 N >60 7 CBC Auto Diff 05/17/2016 [facility] White Blood 4.9 10^3/uL N 3.5-10.[address] [place] [address] [phone] Red Blood Count 4.88 10^6/uL N 4.0-5.4 Hemoglobin 13.8 g/dL Low 14.0-18.0 Hematocrit 41 % Low 42-52 Mean Corpuscular Volume 83 fL N 80-94 Mean Corpuscular Hemoglobin 28 pg N 27-31 Mean Corpuscular HGB Conc 34 g/dL N 31-36 Red Cell Distribution Width 14 % N 10.5-15 Platelet Count 156 10^3/uL N 150-450 Mean Platelet Volume 10 um3 N 7.4-10.4 Abs Neutrophils 2.6 10^3/uL N 1.5-7.7 Abs Lymphocytes 1.8 10^3/uL N 1.0-4.8 Abs Monocytes 0.5 10^3/uL N 0-0.8 Abs Eosinophils 0.1 10^3/uL N 0-0.6 Abs Basophils 0 10^3/uL N 0-0.2 Abs Nucleated RBC 0 10^3/uL N Granulocyte % 52.4 % N 38-83 Lymphocyte % 35.9 % N 25-47 Monocyte % 9.8 % High 1-9 Eosinophil % 1.3 % N 0-6 Basophil % 0.6 % N 0-2 Nucleated Red Blood Cells % 0.1 N Comp Metabolic Panel 05/17/2016 [facility] Sodium 139 mmol/L N 133-[address] [place] [address] [phone] Potassium 4.0 mmol/L N 3.5-5.0 Chloride 103 mmol/L N 101-111 Co2 Carbon Dioxide 30 mmol/L N 22-32 Anion Gap 6 mmol/L N 2-11 Glucose 92 mg/dL N 70-100 Blood Urea Nitrogen 16 mg/dL N 6-24 Creatinine 0.82 mg/dL N 0.67-1.17 BUN/Creatinine Ratio 19.5 N 8-20 Calcium 9.4 mg/dL N 8.6-10.3 Total Protein 7.0 g/dL N 6.4-8.9 Albumin 4.4 g/dL N 3.2-5.2 Globulin 2.6 g/dL N 2-4 Albumin/Globulin Ratio 1.7 N 1-3 Total Bilirubin 0.50 mg/dL N 0.2-1.0 Alkaline Phosphatase 61 U/L N 34-104 Alt 27 U/L N 7-52 Ast 25 U/L N 13-39 Egfr Non- 108.9 N >60 Egfr 140.0 N >60 8 1 FASTING 2 Because ethnic data is not always readily [...] 15-29 5 Kidney failure <15 (or dialysis) 3 PT NOT FASTING Copy Result to: CATIE JAMESON ([id number]) 4 Because ethnic data is not always [...] 5 Kidney failure <15 (or dialysis) 5 Draw prior to AM dose of medication Copy Result to: CATIE JAMESON ([id number]) 6 [facility] Severe Sepsis and Septic Shock Management [...] 15-29 5 Kidney failure <15 (or dialysis) 8 Because ethnic data is not always readily [...] Kidney failure <15 (or dialysis) Procedures Date Code Description Status 05/07/2018 98730 EEG Recording Awake & Drowsy Completed 03/01/2018 03418 EEG Monitoring Computer Completed 02/28/2018 83184 EEG Monitoring Computer Completed 02/27/2018 59974 EEG Monitoring Computer Completed 01/11/2018 66826 Polysomnography Sleep Staging 4+ Parameters Completed 11/27/2017 48169 Remove Impacted Cerumen Completed 06/29/2017 77324 EEG Recording Awake & Drowsy Completed 12/05/2016 28508 Remove Impacted Cerumen Completed 08/01/2016 39404 Remove Impacted Cerumen Completed 04/04/2016 65726 Remove Impacted Cerumen Completed 12/22/2015 30944 Polysomnography Sleep Staging 4+ Parameters Completed 05/11/2015 81200 EEG Recording Awake & Drowsy Completed 04/20/2015 32683 Remove Impacted Cerumen Completed 04/09/2015 67620 EEG Recording Awake & Drowsy Completed 01/19/2015 90652 Remove Impacted Cerumen Completed 10/20/2014 20920 Remove Impacted Cerumen Completed 10/15/2014 32245 EEG Recording Awake & Drowsy Completed 10/10/2014 44312 EEG Recording Awake & Drowsy Completed 06/23/2014 26813 Remove Impacted Cerumen Completed 04/16/2014 99026 Holter Monitoring 24 HR New Completed 02/17/2014 59514 Remove Impacted Cerumen Completed 12/19/2013 50735 EEG Recording Awake & Asleep Completed 12/19/2013 71425 EEG Recording Awake & Drowsy Completed 11/04/2013 41882 Remove Impacted Cerumen Completed 07/29/2013 91816 Remove Impacted Cerumen Completed 04/08/2013 91703 Remove Impacted Cerumen Completed 12/17/2012 10865 Remove Impacted Cerumen Completed 11/22/2011 43202 EEG Recording Awake & Asleep Completed 10/26/2011 68387 Rad Exam; Knee, Ap&L Completed 10/18/2011 05368 Arthroscopy,Knee,ACL Reconstruction Completed 10/18/2011 15009 Arthroscopy,Knee,ACL Reconstruction Completed 10/18/2011 99244 Arthroscopy,Knee,Meniscectomy Media & Lateral Completed 08/22/2011 44508 Remove Impacted Cerumen Completed 01/03/2011 33554 Remove Impacted Cerumen Completed 12/13/2010 03736 Remove Impacted Cerumen Completed 06/03/2010 08228 Rad Exam; Knee Comp Completed Encounters Type Date Location Provider Dx Diagnosis Office Visit 05/16/2018 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 7:00a Clinic MNigel disorder with seizures or convulsions Office Visit 05/06/2018 [facility] Jeevan F39 Unspecified mood 9:49a [facility] Dar Garcia [affective] disorder Z87.898 Personal history of other specified conditions Office Visit 03/12/2018 [place] Artemio G40.802 Other epilepsy, 1:15p Neurologic Dar Beckett not intractable, Services Of [facility] without status epilepticus F79 Unspecified intellectual disabilities Office Visit 02/16/2018 11:15a Pulmonology And Sleep Mayuri Alegre, R06.83 Snoring Services Of [facility] KELSEY, RN, TURNSTILE COLLECTOR-BC Z68.25 Body mass index (BMI) 25.0-25.9, adult Office Visit 12/25/2017 [place] Artemio G40.802 Other epilepsy, 12:00p Neurologic Dar Beckett not intractable, Services Of [facility] without status epilepticus F79 Unspecified intellectual disabilities Office Visit 12/05/2017 Pulmonology And Mayuri G47.33 Obstructive sleep 9:45a Sleep Services Of KELSEY Alegre, RN, apnea (adult) [facility] TURNSTILE COLLECTOR-BC (pediatric) Z68.26 Body mass index (BMI) 26.0-26.9, adult Office Visit 11/27/2017 ENT Services Negrito 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 H90.5 Unspecified sensorineural hearing loss H61.23 Impacted cerumen, bilateral Office 11/20/2017 [facility] Artemio G40.802 Other epilepsy, Visit 3:00p Services Of David Beckett M.D. not intractable, without status epilepticus Office 10/19/2017 Neurohospitalist Artemio G40.802 Other epilepsy, Visit 11:00a Chris Beckett M.D. 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 intractable, without status epilepticus S32.810D Mult fx of pelv w stable disrupt of pelv ring, 7thD L03.113 Cellulitis of right upper limb Office Visit 09/22/2017 9:15a [facility] Maya S06.0x1A Concussion w Loc MD Ronnie of 30 minutes or less, init R51 Headache M25.561 Pain in right knee W07.xxxA Fall from chair, initial encounter M25.551 Pain in right hip G40.802 Other epilepsy, not intractable, without status epilepticus Office Visit 09/04/2017 9:45a [facility] Svitlana Chapmandesmond, G40.802 Other epilepsy, GLASS EDGER not intractable, without status epilepticus S32.810D Mult fx of pelv w stable disrupt of pelv ring, 7thD Office Visit 08/29/2017 9:30a [facility] Maya G40.802 Other epilepsy, MD Ronnie not intractable, without status epilepticus F79 Unspecified intellectual disabilities S32.810D Mult fx of pelv w stable disrupt of pelv ring, 7thD Office Visit 08/17/2017 [place] G40.802 Other epilepsy, 3:15p Neli Beckett M.D. not intractable, Services Of [facility] without status epilepticus R55 Syncope and collapse Office Visit 07/17/2017 Fabiola Ulloa G40.802 Other epilepsy, 3:00p Neli Beckett M.D. not intractable, Services Of [facility] without status epilepticus R55 Syncope and collapse Office Visit 06/30/2017 Pulmonology And Mayuri G47.33 Obstructive sleep 10:00a Sleep Services Of KELSEY Alegre, RN, apnea (adult) [facility] TURNSTILE COLLECTOR-BC (pediatric) G47.14 Hypersomnia due to medical condition Office Visit 06/15/2017 [place] G40.802 Other epilepsy, 2:15p Neli Beckett M.D. not intractable, Services Of Director Inbound Sales without status epilepticus G25.3 Myoclonus Office Visit 03/27/2017 10:50a [facility] Dermatology Jerson Mcfadden MD L84 Corns and callosities B35.3 Tinea pedis Office Visit 12/28/2016 Pulmonology And Mayuri G47.33 Obstructive sleep 10:00a Sleep Services Of KELSEY Alegre, SATINDER, apnea (adult) [facility] TURNSTILE COLLECTOR-BC (pediatric) G47.10 Hypersomnia, unspecified Office Visit 12/15/2016 Fabiola Ulloa G40.802 Other epilepsy, 10:30a Neurologic Dar Beckett not intractable, Services Of Director Inbound Sales without status epilepticus F79 Unspecified intellectual disabilities Office Visit 09/28/2016 Pulmonology And Mayuri G47.33 Obstructive sleep 2:00p Sleep Services Of KELSEY Alegre RN, apnea (adult) [facility] TURNSTILE COLLECTOR-BC (pediatric) Office Visit 05/23/2016 [place]Fabiola Mclain G40.802 Other epilepsy, 1:45p Neurologic Celia Castellano M.D. 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, bilateral H72.01 Central perforation of tympanic membrane, right ear Office Visit 03/22/2016 Pulmonology And Mayuri G47.33 Obstructive sleep 3:00p Sleep Services Of KELSEY Alegre RN, apnea (adult) [facility] TURNSTILE COLLECTOR-BC (pediatric) Office Visit 01/04/2016 Pulmonology And Claribel Acuña G47.33 Obstructive sleep 1:45p Sleep Services Of MD sherman (adult) Director Inbound Sales (pediatric) Office Visit 11/26/2015 Pulmonology And Claribel Acuña G47.9 Sleep disorder, 10:15a Sleep Services Of MD shanice Hernandez G47.10 Hypersomnia, unspecified Office Visit 10/20/2015 11:45a Fabiola Mclain F79 Unspecified Services Of David Castellano M.D. intellectual disabilities R56.9 Unspecified convulsions G25.3 Myoclonus Office Visit 05/11/2015 Neurohospitalist Yoli G40.802 Other epilepsy, 10:56a Clinic MD Johnie not intractable, without status epilepticus G40.802 Other epilepsy, not intractable, without status epilepticus Office Visit 04/16/2015 11:45a [place] Neurologic Nanda Castellano, R55 Syncope and Services Of David Dodge collapse F79 Unspecified intellectual disabilities Office Visit 01/16/2015 8:45a Orthopedic Blanca Perez, S83.512D Sprain of Services Of Dar anterior C.M.A. cruciate ligament of left knee, subs S83.282D Oth tear of lat mensc, current injury, left knee, subs Office Visit 10/20/2014 4:00p Orthopedic Marcial Lopez, 836.0 Dislocation Knee Services Of Dar Tear Of Medial C.M.A. Cartilage Or Meniscus Curr 844.2 Sprains & Strains Knee Cruciate Ligament 836.1 Dislocation Knee Tear Of Lateral Cartilage Or Meniscus Curre Office Visit 10/16/2014 11:45a [place] Neurologic Nanda Mclain 780.2 Syncope & Services Of David Castellano M.D. Collapse 345.90 Epilepsy Unspec W/O Intractable 319 Unspecified Intellectual Disabilities Office Visit 10/11/2014 12:42p [facility] Claudia Pastrana, 345.90 Epilepsy Unspec Assoc,pc N.P. 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 Unspec 780.97 Altered Mental Status 345.90 Epilepsy Unspec W/O Intractable Office Visit 05/29/2014 1:30p Orthopedic Marcial Lopez, 719.46 Pain Joint Lower Services Of Dar Leg C.M.A. Office Visit 04/23/2014 1:15p Orthopedic Blanca Perez 719.46 Pain Joint Lower Services Of M.D. Leg C.M.A. Office Visit 04/10/2014 10:15a Orthopedic Blanca Perez 719.46 Pain Joint Lower Services Of M.D. Leg C.M.A. Office Visit 04/10/2014 1:45p [place] Neli Mclain 345.90 Epilepsy Unspec Services Of David Castellano W/O Intractable Dar 333.2 Myoclonus 319 Unspecified Intellectual Disabilities 780.2 Syncope & Collapse Office Visit 03/21/2014 Orthopedic Thaddeus Freedman 719.46 Pain Joint Lower 9:00a Services Of Martina, RPA-C Leg C.M.A. Office Visit 02/24/2014 Orthopedic Blanca Perez 719.46 Pain Joint Lower 2:45p Services Of M.D. Leg C.M.A. Office Visit 02/10/2014 Orthopedic Blanca Perez, 836.0 Dislocation Knee 2:45p Services Of M.D. Tear Of Medial C.M.A. Cartilage Or Meniscus Curren Office Visit 10/03/2013 [place] Mclain 345.90 Epilepsy Unspec 11:45a Neli Castellano M.D. W/O Intractable Services Of [facility] 333.2 Myoclonus 319 Unspecified Intellectual Disabilities 780.2 Syncope & Collapse Office Visit 09/25/2013 9:00a Orthopedic Capo Garcia.2 Sprains & Services Of Dar Strains Knee C.M.A. Cruciate Ligament Office Visit 08/14/2013 11:30a Orthopedic Teresa Khalil4.2 Sprains & Services Of Alden RPA-C Strains Knee C.M.A. Cruciate Ligament Office Visit 07/24/2013 2:30p Orthopedic Remi Palafox4.2 Sprains & Services Of RPA-C Strains Knee C.M.A. Cruciate Ligament Office Visit 04/05/2013 11:30a Fabiola Mclain 333.2 Myoclonus Services Of David Castellano M.D. 345.90 Epilepsy Unspec W/O Intractable 319 Unspecified Intellectual Disabilities Office Visit 10/31/2012 10:00a Orthopedic Remi Garcia4.2 Sprains & Services Of C.M.A. Dar Strains Knee Cruciate Ligament Office Visit 10/18/2012 11:15a [place] Neli Mclain 333.2 Myoclonus Services Of David Castellano M.D. 345.90 Epilepsy Unspec W/O Intractable 319 Unspecified Intellectual Disabilities Office Visit 09/17/2012 10:00a ENT Services Of [place] 380.4 Impacted C.M.A. AT [facility], Jair.Bautista Cerumen Jesse 385.03 Tympanosclerosis Involving Tympanic Membrane Ear [place] Mid Ear 389.10 Hearing Loss Sensorineural Unspec Office Visit 08/02/2012 1:15p [place] Mclain 780.2 Syncope & Services Of David Castellano M.D. Collapse 333.2 Myoclonus Office Visit 05/23/2012 1:00p Orthopedic Remi Garcia4.2 Sprains & Strains Services Of Dar Knee Cruciate C.M.A. Ligament Office Visit 03/20/2012 11:45a Fabiola Mclain 780.39 Convulsions Other Services Of David Castellano M.D. 333.2 Myoclonus 319 Unspecified Intellectual Disabilities Office Visit 01/25/2012 9:15a Orthopedic Rowdy Whyte 844.2 Sprains & Services Of C.M.A. M.D. Strains Knee Cruciate Ligament Office Visit 11/18/2011 3:15p Fabiola Mclain 333.2 Myoclonus Services Of David Castellano M.D. 780.39 Convulsions Other Office Visit 08/01/2011 4:00p Mauricio Whyte 844.2 Sprains & Services Of C.M.A. M.D. Strains Knee Cruciate Ligament Office Visit 06/13/2011 11:00a Mauricio Whyte 844.2 Sprains & Services Of C.M.A. M.D. Strains Knee Cruciate Ligament 836.0 Dislocation Knee Tear Of Medial Cartilage Or Meniscus Curren 844.9 Sprains & Strains Knee & Leg Unspec Office Visit 06/03/2011 Orthopedic Ramandeep Perez, 717.9 Internal Derangement 9:45a Services Of RPA-C Knee Unspec C.M.A. Office Visit 01/03/2011 ENT Services Of [place] 385.03 Tympanosclerosis 10:30a C.M.A. AT [facility], Involving Tympanic [place] M.DEvelyn Membrane Ear [place] Mid Ear 380.4 Impacted Cerumen Office Visit 12/13/2010 ENT Services Nergito 385.03 Tympanosclerosis 9:30a Of Leelee AT Dar Herrera Involving Tympanic Jesse Membrane Ear [place] Mid Ear 389.10 Hearing Loss Sensorineural Unspec 380.4 Impacted Cerumen Office Visit 06/23/2010 2:30p Orthopedic Services Rowdy Whyte, 844.9 Sprains & Of Leelee Dodge Strains Knee & Leg Unspec 844.2 Sprains & Strains Knee Cruciate Ligament Office Visit 06/03/2010 2:00p Orthopedic Services Rowdy Whyte, 844.9 Sprains & Of Leelee Dodge Strains Knee & Leg Unspec Plan of Treatment Future Appointment(s):11/19/2018 10:00 am - Vimal Burnette NAlmita at [place] [facility]08/21/2018 - Vimal Burnette N.P.F44.5 Conversion disorder with seizures or convulsionsFollow up:3 monthsRecommendations:please have your labs obtain first thing in the morning before talking your FbdmfrzwL54.898 Personal history of other specified xlxhdyhyaoR10.9 Unspecified convulsions
[2018-08-31 20:31] VITALS: BP 118/83
== END 2018-08-31 20:28 | disposition home or self-care (01) ==
LOC: ED 17:21
DX: F44.5 Conversion disorder with seizures or convulsions (principal)
CPT/HCPCS: 36415; 70450; 80053; 80164; 81003; 81015; 83605; 83735; 85025; 85610; 93005; 99285; A9270-GY

== ENCOUNTER 2018-10-28 14:27 | Emergency (ER) | payer MEDICARE, MEDICAID ==
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
[2018-10-28] MEDS ORDERED: NS 0.9% 1000 ML** 1,000 ML IV ONE (14:57)
[2018-10-28] MEDS ORDERED: Lorazepam PYXIS KEY PRN ×2 (14:57→15:18)
[2018-10-28 14:59] LABS: Hematocrit 42 % (42-52); Hemoglobin 14.6 g/dL (14.0-18.0); Mean Corpuscular HGB Conc 35 g/dL (31-36); Mean Corpuscular Hemoglobin 29 pg (27-31); Mean Corpuscular Volume 83 fL (80-94); Mean Platelet Volume 8.5 fL (7.4-10.4); Platelet Count 171 10^3/uL (150-450); Red Blood Count 5.11 10^6 /uL (4.18-5.48); Red Cell Distribution Width 14 % (10-15); White Blood Count 5.4 10^3/uL (3.5-10.8)
[2018-10-28 15:05] LABS: INR 0.98 (0.82-1.09)
[2018-10-28 15:16] LABS: ALT 45 U/L (7-52); AST 30 U/L (13-39); Albumin 4.7 g/dL (3.2-5.2); Albumin/Globulin Ratio 1.7 (1-3); Alkaline Phosphatase 55 U/L (34-104); Anion Gap 6 mmol/L (2-11); BUN/Creatinine Ratio 14.9 (8-20); Blood Urea Nitrogen 14 mg/dL (6-24); CO2 Carbon Dioxide 28 mmol/L (22-32); Calcium 9.8 mg/dL (8.6-10.3); Chloride 101 mmol/L (101-111); EGFR African American 111.2 (>60); EGFR Non-African American 91.9 (>60); Globulin 2.8 g/dL (2-4); Glucose 111 mg/dL (70-100); Potassium 3.9 mmol/L (3.5-5.0); Sodium 135 mmol/L (135-145); Total Protein 7.5 g/dL (6.4-8.9)
[2018-10-28] MEDS ORDERED: LORazepam INJ* 2 MG/ML 1 ML VIAL IV PUSH ONE (15:18)
[2018-10-28 15:27] LABS: ABS Eosinophils 0.1 10^3/ul (0-0.6); ABS Lymphocytes 1.9 10^3/ul (1.0-4.8); ABS Monocytes 0.4 10^3/ul (0-0.8); Lymphocyte % 35.6 %; Nucleated Red Blood Cells % 0.1
[2018-10-28] MEDS ORDERED: Lorazepam PYXIS KEY ONE (15:33)
[2018-10-28 16:14] LABS: Alcohol < 10 mg/dL (<10)
--- OUTSIDE RECORDS SUMMARY | 2018-10-28 18:14 | XMS REPORT | Continuity of Care Document ---
:1985 External Reference #:[id number] Author Name Oleg Jameson M.D. Address [address] [place] [address] Care Team Providers Name Role Phone Oleg Jameson MD - Family Medicine Care Team Information Financial Agent [phone] Problems Active Problems Provider Date Anxiety state Stan Rudolph M.D. Onset: 09/20/2006 Epilepsy, not refractory Stan Rudolph M.D. Onset: 09/20/2006 Symptom of skin and integumentary tissue Oleg Jameson M.D. Onset: 2010 Depressive disorder Oleg Jameson M.D. Onset: 12/14/2010 Acne Oleg Jameson M.D. Onset: 12/14/2010 Myoclonus Oleg Jameson M.D. Onset: 04/28/2014 Other seizures Oleg Jameson M.D. Onset: 06/04/2015 Obstructive sleep apnea syndrome Oleg Jameson M.D. Onset: 04/07/2016 Bite of nonvenomous arthropod Kyree Arzola M.D. Onset: 05/26/2016 Chest pain Oleg Jameson M.D. Onset: 09/20/2016 Hyperlipidemia Oleg Jameson M.D. Onset: 10/13/2016 Adult health examination Oleg Jameson M.D. Onset: 10/13/2016 Cellulitis of left lower limb Oleg Jameson M.D. Onset: 10/25/2018 Conjunctivitis due to adenovirus Oleg Jameson M.D. Onset: 06/07/2018 Social History Type Date Description Comments Sex Unknown Tobacco Use Start: Unknown Nonsmoker ETOH Use Denies alcohol use Tobacco Use Start: Unknown Patient has never smoked Smoking Status Reviewed: 08/17/18 Patient has never smoked Allergies, Adverse Reactions, Alerts Description No Known Drug Allergies Medications Active Medications SIG Qnty Indications Ordering Date Provider Doxycycline 1 by mouth twice 14caps Kyree Kilpatrick 10/19/2018 Monohydrate a day MD Darinel 100mg Capsules Divalproex Sodium 1 by mouth twice 30tabs Oleg F. 08/14/2018 500mg a day Dar Jameson Tablets DR Diazepam Take One Tablet 15tabs Oleg F. 03/18/2017 2mg Tablets By Mouth Prior To Dar Jameson Medical Exams Maximum Daily Dose = One Tablet Therems-M take one tablet 30tabs Oleg FEvelyn 04/27/2016 Tablets by mouth every Dar Jameson day Sertraline HCL Take 1 And 1/2 45tabs Oleg F. 03/20/2011 100mg Tablets By Mouth Dar Jameson Tablets Daily Klonopin 1 po bid 0units Oleg F. 08/28/1998 1mg Dar Jameson Listerine Antiseptic rinse 1 TBLS in Oleg F. mouth 30 seconds Dar Jameson Liquid bid Ibuprofen 2 po q 8 hr prn Oleg F. 200mg Tablets pain/inflammation Dar Jameson . Take with food. Guiatuss DM 5ml po q4hrs prn Oleg F. 100mg/5ML Dar Jameson Syrup Acetaminophen 2 po q4hrs prn Oleg F. 325mg pain or fever Dar Jameson Tablets <100 Bactroban apply three times 15gm Oleg F. 2% Cream a day to affected Dar Jameson areas unil healed and as needed for the new areas Vitamin D3 Super Oleg F. Strength Dar Jameson 2000Unit Capsules History Medications Triple Antibiotic apply tid prn 28.400gm Oleg FEvelyn Jameson 10/24/2018 - Plus cuts/scrapes M.DEvelyn 10/25/2018 1% Ointment Triple Antibiotic apply tid prn 28gm Kyree Kilpatrick 10/24/2018 - cuts/scrapes MD Darinel 10/25/2018 3.5-400-5000 Ointment Patanol Oleg Jameson, 06/07/2018 - 0.1% M.D. 06/09/2018 Solution Tobramycin instill 1 drop into 5ml Oleg Jameson, 06/07/2018 - 0.3% affected eye every 4 M.D. 06/12/2018 Solution hours for infection Medications Administered in Office Medication SIG Qnty Indications Ordering Provider Date TB Intradermal Test Oleg Jameson M.D. 06/09/2009 Injection H1N1 MDCR vaccine any route Oleg Jameson M.D. 02/27/2009 Injection TB Intradermal Test Oleg Jameson M.D. 06/03/2008 Injection TB Intradermal Test Raghav Anna 05/16/2007 Injection TB Intradermal Test Raghav Siu 05/08/2006 Injection TB Intradermal Test Raghav Siu 05/04/2005 Injection Immunizations CPT Code Status Date Vaccine Lot # [id number] Given 10/25/2018 Influenza Vac, Quadrivalent, Slit Virus, Im [id number] 76523 Given 11/06/2017 Influenza Vac, [place] [address] Given 11/23/2016 Influenza Vac, [place]riv[place], [place] [address] Given 11/28/2015 Influenza Vac, [place], [place] [address] Given 11/28/2011 DO Not Use Split Influenza Virus Vaccine [id number] Given 12/14/2010 Split Influenza Medicare: Fluzone [id number] 85675 Given 11/19/2007 DO Not Use Split Influenza Virus Vaccine [id number] 34296 Given 11/25/2006 DO Not Use Split Influenza Virus Vaccine [id number] 27213 Given 05/08/2006 Tdap Tetanus, W Pertussis [id number] 47989 Given 12/06/2005 DO Not Use Split Influenza Virus Vaccine 85447 Given 12/06/1999 Td Immunization, For Use In Individuals 7 Years Or Older 25887 Given 02/01/1995 Hepatitis B Immunization, [place]-19 Years 97285 Given 03/09/1994 Hepatitis B Immunization, -19 Years 85322 Given 02/02/1994 Hepatitis B Immunization, -19 Years 57766 Given 09/28/1989 DT Immunization 21648 Given 09/28/1989 MMR Virus Immunization 72106 Given 09/28/1989 (IPV) Inactive Poliovirus Vaccine 23887 Given 02/07/1986 (Hib) Hemoplilus Influenza B 47999 Given 09/02/1985 (IPV) Inactive Poliovirus Vaccine 66401 Given 09/02/1985 DTP Immunization 50492 Given 08/05/1985 MMR Virus Immunization 85830 Given 04/22/1985 (IPV) Inactive Poliovirus Vaccine 60588 Given 04/22/1985 DTP Immunization 29485 Given 1984 (IPV) Inactive Poliovirus Vaccine 95787 Given 1984 DTP Immunization 91655 Given 1984 (IPV) Inactive Poliovirus Vaccine 30809 Given 1984 DTP Immunization 94913 Given 1984 (IPV) Inactive Poliovirus Vaccine 18990 Given 1984 DTP Immunization Vital Signs Date Vital Result Comment 10/25/2018 12:03pm BP Systolic 112 mmHg BP Diastolic 68 mmHg Heart Rate 70 /min Body Temperature 97.9 F Respiratory Rate 16 /min Height 69.5 inches 5'9.50" Weight 188.00 lb BMI (Body Mass Index) 27.4 kg/m2 10/19/2018 9:28am BP Systolic 110 mmHg BP Diastolic 86 mmHg Heart Rate 72 /min Body Temperature 97.7 F Respiratory Rate 16 /min Height 69.5 inches 5'9.50" Weight 190.00 lb BMI (Body Mass Index) 27.7 kg/m2 Results Test Date Facility Test Result H/L Range Note CBC Auto Diff 10/03/2018 [facility] [place] Blood Count 4.7 10^3/uL Normal 3.5- 10.8 Red Blood Count 4.65 10^6/uL Normal 4.18-5.48 Hemoglobin 13.5 g/dL Low 14.0-18.0 Hematocrit 38 % Low 42-52 Mean Corpuscular Volume 83 fL Normal 80-94 Mean Corpuscular Hemoglobin 29 pg Normal 27-31 Mean Corpuscular HGB Conc 35 g/dL Normal 31-36 Red Cell Distribution Width 14 % Normal 10-15 Platelet Count 143 10^3/uL Low 150-450 Mean Platelet Volume 8.4 fL Normal 7.4-10.4 Abs Neutrophils 2.5 10^3/uL Normal 1.5-7.7 Abs Lymphocytes 1.7 10^3/uL Normal 1.0-4.8 Abs Monocytes 0.5 10^3/uL Normal 0-0.8 Abs Eosinophils 0.0 10^3/uL Normal 0-0.6 Abs Basophils 0.0 10^3/uL Normal 0-0.2 Abs Nucleated RBC 0.0 10^3/uL Granulocyte % 52.6 % Lymphocyte % 36.1 % Monocyte % 10.5 % Eosinophil % 0.5 % Basophil % 0.3 % Nucleated Red Blood Cells % 0.0 Comp Metabolic Panel 10/03/2018 [facility] [place] Sodium 139 mmol/L Normal 135-145 Potassium 3.9 mmol/L Normal 3.5-5.0 Chloride 106 mmol/L Normal 101-111 Co2 Carbon Dioxide 28 mmol/L Normal 22-32 Anion Gap 5 mmol/L Normal 2-11 Glucose 120 mg/dL High 70-100 Blood Urea Nitrogen 15 mg/dL Normal 6-24 Creatinine 0.73 mg/dL Normal 0.67-1.17 BUN/Creatinine Ratio 20.5 High 8-20 Calcium 9.5 mg/dL Normal 8.6-10.3 Total Protein 6.7 g/dL Normal 6.4-8.9 Albumin 4.3 g/dL Normal 3.2-5.2 Globulin 2.4 g/dL Normal 2-4 Albumin/Globulin Ratio 1.8 Normal 1-3 Total Bilirubin 0.40 mg/dL Normal 0.2-1.0 Alkaline Phosphatase 49 U/L Normal 34-104 Alt 29 U/L Normal 7-52 Ast 24 U/L Normal 13-39 Egfr Non- 123.0 >60 Egfr 148.8 >60 1 Urinalysis Profile 08/31/2018 [facility] [place]rine Color Soo Urine Appearance Cloudy Urine Specific [place] 1.034 High 1.010-1.030 Urine pH 5.0 Normal 5-9 Urine Urobilinogen Negative Negative Urine Ketones Trace Abnormal Negative Urine Protein 2+(100 mg/dL) Abnormal Negative Urine Leukocytes Negative Negative Urine Blood Negative Negative Urine Nitrite Negative Negative Urine Bilirubin Negative Negative Urine Glucose Negative Negative Urine White Blood Cell Absent Absent Urine Red Blood Cell Absent Absent Urine Bacteria Absent Absent CBC Auto Diff 08/31/2018 [facility] [place] White Blood Count 5.5 10^3/uL Normal 3.5- 10.8 Red Blood Count 4.88 10^6/uL Normal 4.18-5.48 Hemoglobin 13.9 g/dL Low 14.0-18.0 Hematocrit 40 % Low 42-52 Mean Corpuscular Volume 83 fL Normal 80-94 Mean Corpuscular Hemoglobin 28 pg Normal 27-31 Mean Corpuscular HGB Conc 34 g/dL Normal 31-36 Red Cell Distribution Width 14 % Normal 10-15 Platelet Count 155 10^3/uL Normal 150-450 Mean Platelet Volume 8.6 fL Normal 7.4-10.4 Abs Neutrophils 3.1 10^3/uL Normal 1.5-7.7 Abs Lymphocytes 1.8 10^3/uL Normal 1.0-4.8 Abs Monocytes 0.5 10^3/uL Normal 0-0.8 Abs Eosinophils 0.0 10^3/uL Normal 0-0.6 Abs Basophils 0.0 10^3/uL Normal 0-0.2 Abs Nucleated RBC 0.0 10^3/uL Granulocyte % 56.4 % Lymphocyte % 32.9 % Monocyte % 9.5 % Eosinophil % 0.6 % Basophil % 0.6 % Nucleated Red Blood Cells % 0.1 Laboratory test finding 08/31/2018 [facility] [place] Lactic Acid 1.2 mmol/L Normal 0.5- 2.0 2 Inr/Protime 08/31/2018 [facility] [place] Inr 0.99 Normal 0.82-1.09 3 Comp Metabolic Panel 08/31/2018 [facility] [place] Sodium 141 mmol/L Normal 135-145 Potassium 4.1 mmol/L Normal 3.5-5.0 Chloride 106 mmol/L Normal 101-111 Co2 Carbon Dioxide 27 mmol/L Normal 22-32 Anion Gap 8 mmol/L Normal 2-11 Glucose 98 mg/dL Normal 70-100 Blood Urea Nitrogen 17 mg/dL Normal 6-24 Creatinine 0.92 mg/dL Normal 0.67-1.17 BUN/Creatinine Ratio 18.5 Normal 8-20 Calcium 9.4 mg/dL Normal 8.6-10.3 Total Protein 7.4 g/dL Normal 6.4-8.9 Albumin 4.6 g/dL Normal 3.2-5.2 Globulin 2.8 g/dL Normal 2-4 Albumin/Globulin Ratio 1.6 Normal 1-3 Total Bilirubin 0.40 mg/dL Normal 0.2-1.0 Alkaline Phosphatase 47 U/L Normal 34-104 Alt 35 U/L Normal 7-52 Ast 28 U/L Normal 13-39 Egfr Non- 94.2 >60 Egfr 114.0 >60 4 Laboratory test finding 08/31/2018 [facility] [place] Magnesium 2.1 mg/dL Normal 1.9- 2.7 Valproic Acid (Depakene) 65.0 g/mL Normal 50-100 Laboratory test 08/17/2018 [facility] Valproic Acid 52 ug/mL 50-100 5, [address] [facility] (Depakote)(R),[place] [address] ([phone] - Urine Culture And 08/13/2018 [facility] [place] Urine Culture SEE 7 Sensitivities RESULT BELOW Urinalysis 08/13/2018 [facility] [place] Urine Color Yellow Profile Urine Appearance Clear Urine Specific [place] 1.008 Low 1.010-1.030 Urine pH 7.0 Normal 5-9 Urine Urobilinogen Negative Negative Urine Ketones Negative Negative Urine Protein Negative Negative Urine Leukocytes Negative Negative Urine Blood Negative Negative Urine Nitrite Negative Negative Urine Bilirubin Negative Negative Urine Glucose Negative Negative Urine White Blood Cell Trace(0-5/hpf) Absent Urine Red Blood Cell Trace(0-2/hpf) Absent Urine Bacteria Absent Absent Urine Hyaline Casts Present Abnormal Absent Laboratory test finding 08/13/2018 [facility] [place] Magnesium 1.9 mg/dL Normal 1.9- 2.7 Valproic Acid (Depakene) 107.0 g/mL High 50-100 Lactic Acid 1.1 mmol/L Normal 0.5-2.0 8 Comp Metabolic Panel 08/13/2018 [facility] [place] Sodium 140 mmol/L Normal 135-145 Potassium 4.0 mmol/L Normal 3.5-5.0 Chloride 105 mmol/L Normal 101-111 Co2 Carbon Dioxide 29 mmol/L Normal 22-32 Anion Gap 6 mmol/L Normal 2-11 Glucose 95 mg/dL Normal 70-100 Blood Urea Nitrogen 9 mg/dL Normal 6-24 Creatinine 0.77 mg/dL Normal 0.67-1.17 BUN/Creatinine Ratio 11.7 Normal 8-20 Calcium 9.4 mg/dL Normal 8.6-10.3 Total Protein 7.0 g/dL Normal 6.4-8.9 Albumin 4.4 g/dL Normal 3.2-5.2 Globulin 2.6 g/dL Normal 2-4 Albumin/Globulin Ratio 1.7 Normal 1-3 Total Bilirubin 0.40 mg/dL Normal 0.2-1.0 Alkaline Phosphatase 49 U/L Normal 34-104 Alt 27 U/L Normal 7-52 Ast 22 U/L Normal 13-39 Egfr Non- 115.6 >60 Egfr 139.9 >60 9 Inr/Protime 08/13/2018 [facility] [place] Inr 0.99 Normal 0.82-1.09 10 CBC Auto Diff 08/13/2018 [facility] [place] White Blood Count 5.3 10^3/uL Normal 3.5- 10.8 Red Blood Count 4.74 10^6/uL Normal 4.18-5.48 Hemoglobin 13.4 g/dL Low 14.0-18.0 Hematocrit 39 % Low 42-52 Mean Corpuscular Volume 82 fL Normal 80-94 Mean Corpuscular Hemoglobin 28 pg Normal 27-31 Mean Corpuscular HGB Conc 34 g/dL Normal 31-36 Red Cell Distribution Width 14 % Normal 10-15 Platelet Count 153 10^3/uL Normal 150-450 Mean Platelet Volume 8.7 fL Normal 7.4-10.4 Abs Neutrophils 2.8 10^3/uL Normal 1.5-7.7 Abs Lymphocytes 2.1 10^3/uL Normal 1.0-4.8 Abs Monocytes 0.4 10^3/uL Normal 0-0.8 Abs Eosinophils 0.0 10^3/uL Normal 0-0.6 Abs Basophils 0.0 10^3/uL Normal 0-0.2 Abs Nucleated RBC 0.0 10^3/uL Granulocyte % 51.8 % Lymphocyte % 39.5 % Monocyte % 7.4 % Eosinophil % 0.9 % Basophil % 0.4 % Nucleated Red Blood Cells % 0.1 CBC Auto Diff 05/06/2018 [facility] [place] White Blood Count 5.5 10^3/uL Normal 3.5- 10.8 Red Blood Count 4.61 10^6/uL Normal 4.18-5.48 Hemoglobin 13.4 g/dL Low 14.0-18.0 Hematocrit 38 % Normal 36-46 Mean Corpuscular Volume 83 fL Normal 80-94 Mean Corpuscular Hemoglobin 29 pg Normal 27-31 Mean Corpuscular HGB Conc 35 g/dL Normal 31-36 Red Cell Distribution Width 14 % Normal 10.5-15 Platelet Count 151 10^3/uL Normal 150-450 Mean Platelet Volume 8.4 fL Normal 7.4-10.4 Abs Neutrophils 2.5 10^3/uL Normal 1.5-7.7 Abs Lymphocytes 2.3 10^3/uL Normal 1.0-4.8 Abs Monocytes 0.5 10^3/uL Normal 0-0.8 Abs Eosinophils 0.1 10^3/uL Normal 0-0.6 Abs Basophils 0 10^3/uL Normal 0-0.2 Abs Nucleated RBC 0 10^3/uL Granulocyte % 45.8 % Lymphocyte % 42.5 % Monocyte % 9.8 % Eosinophil % 1.3 % Basophil % 0.6 % Nucleated Red Blood Cells % 0.1 Comp Metabolic Panel 05/06/2018 [facility] [place] Sodium 138 mmol/L Normal 135-145 Potassium 4.0 mmol/L Normal 3.5-5.0 Chloride 104 mmol/L Normal 101-111 Co2 Carbon Dioxide 30 mmol/L Normal 22-32 Anion Gap 4 mmol/L Normal 2-11 Glucose 85 mg/dL Normal 70-100 Blood Urea Nitrogen 13 mg/dL Normal 6-24 Creatinine 0.76 mg/dL Normal 0.67-1.17 BUN/Creatinine Ratio 17.1 Normal 8-20 Calcium 9.5 mg/dL Normal 8.6-10.3 Total Protein 6.8 g/dL Normal 6.4-8.9 Albumin 4.3 g/dL Normal 3.2-5.2 Globulin 2.5 g/dL Normal 2-4 Albumin/Globulin Ratio 1.7 Normal 1-3 Total Bilirubin 0.40 mg/dL Normal 0.2-1.0 Alkaline Phosphatase 47 U/L Normal 34-104 Alt 22 U/L Normal 7-52 Ast 21 U/L Normal 13-39 Egfr Non- 117.4 >60 Egfr 142.1 >60 11 Laboratory test finding 05/06/2018 [facility] [place] Magnesium 1.9 mg/dL Normal 1.9- 2.7 Valproic Acid (Depakene) 97.0 g/mL Normal 50-100 CBC Auto Diff 05/05/2018 [facility] [place] White Blood Count 5.9 10^3/uL Normal 3.5- 10.8 Red Blood Count 4.67 10^6/uL Normal 4.18-5.48 Hemoglobin 13.2 g/dL Low 14.0-18.0 Hematocrit 38 % Normal 36-46 Mean Corpuscular Volume 82 fL Normal 80-94 Mean Corpuscular Hemoglobin 28 pg Normal 27-31 Mean Corpuscular HGB Conc 34 g/dL Normal 31-36 Red Cell Distribution Width 14 % Normal 10.5-15 Platelet Count 154 10^3/uL Normal 150-450 Mean Platelet Volume 8.4 fL Normal 7.4-10.4 Abs Neutrophils 2.8 10^3/uL Normal 1.5-7.7 Abs Lymphocytes 2.6 10^3/uL Normal 1.0-4.8 Abs Monocytes 0.5 10^3/uL Normal 0-0.8 Abs Eosinophils 0 10^3/uL Normal 0-0.6 Abs Basophils 0.1 10^3/uL Normal 0-0.2 Abs Nucleated RBC 0 10^3/uL Granulocyte % 46.7 % Lymphocyte % 43.4 % Monocyte % 8.2 % Eosinophil % 0.8 % Basophil % 0.9 % Nucleated Red Blood Cells % 0.1 Laboratory test finding 05/05/2018 [facility] [place] Lactic Acid 1.9 mmol/L Normal 0.5- 2.0 12 Inr/Protime 05/05/2018 [facility] Inr 0.98 Normal 0.77-1.02 Comp Metabolic Panel 05/05/2018 [facility] Sodium 139 mmol/L Normal 135-145 Potassium 3.6 mmol/L Normal 3.5-5.0 Chloride 104 mmol/L Normal 101-111 Co2 Carbon Dioxide 27 mmol/L Normal 22-32 Anion Gap 8 mmol/L Normal 2-11 Glucose 119 mg/dL High 70-100 Blood Urea Nitrogen 16 mg/dL Normal 6-24 Creatinine 0.76 mg/dL Normal 0.67-1.17 BUN/Creatinine Ratio 21.1 High 8-20 Calcium 9.1 mg/dL Normal 8.6-10.3 Total Protein 6.6 g/dL Normal 6.4-8.9 Albumin 4.2 g/dL Normal 3.2-5.2 Globulin 2.4 g/dL Normal 2-4 Albumin/Globulin Ratio 1.8 Normal 1-3 Total Bilirubin 0.30 mg/dL Normal 0.2-1.0 Alkaline Phosphatase 50 U/L Normal 34-104 Alt 22 U/L Normal 7-52 Ast 20 U/L Normal 13-39 Egfr Non- 117.4 >60 Egfr 142.1 >60 13 Laboratory test finding 05/05/2018 [facility] Magnesium 1.8 mg/dL Low 1.9-2.7 Valproic Acid (Depakene) 102.0 g/mL High 50-100 TSH (Thyroid Stim Horm) 1.97 mcIU/mL Normal 0.34-5.60 Urinalysis Profile 05/05/2018 [facility] Urine Color Yellow Urine Appearance Cloudy Urine Specific [place] 1.030 Normal 1.010-1.030 Urine pH 5.0 Normal 5-9 Urine Urobilinogen Negative Negative Urine Ketones Negative Negative Urine Protein Negative Negative Urine Leukocytes Negative Negative Urine Blood Negative Negative Urine Nitrite Negative Negative Urine Bilirubin Negative Negative Urine Glucose Negative Negative 1 Because ethnic data is not always [...] 5 Kidney failure <15 (or dialysis) 2 [facility] Severe Sepsis and Septic Shock Management Bundle Measure requires all lactic acids initially measuring >2.0 mmol/L be repeated. 3 Standard intensity warfarin therapeutic range: 2.0-3.0 High intensity warfarin therapeutic range: 2.5-3.5 4 Because ethnic data is not always [...] 5 Kidney failure <15 (or dialysis) 5 1 serum pour off from red top tube 6 Detection Limit = 4 <4 indicates None Detected Toxicity may occur at levels of 100-500. Measurements of free unbound valproic acid may improve the assess- ment of clinical response. 7 SEE RESULT BELOW Name: CUCA ROMAN : [address]: Nitin Acevedo MD Acct: [id number] Unit: [id number] AGE: 33 Location: ED Re08/13/18 SEX: M Status: DEP ER SPEC: [id number] FELIPE: 08/13/[address] [facility] [address]: Nitin Acevedo MD REQ: [id number] RECD: 08/13/18 STATUS: COMP MALATHI DR: Oleg Jameson MD _ SOURCE: URINE [facility]: ORDERED: Urine Culture Procedure Result Reported Site Urine Culture Final 08/15/18- 817 ML No Growth (<1,000 CFU/mL) * ML - Main Lab . END OF REPORT DEPARTMENT OF PATHOLOGY, [address] [place] [address] Ra Galvan M.D. Director [facility] # [id number] 8 [facility] Severe Sepsis and Septic Shock Management Bundle Measure requires all lactic acids initially measuring >2.0 mmol/L be repeated. 9 Because ethnic data is not always readily [...] 15-29 5 Kidney failure <15 (or dialysis) 10 Standard intensity warfarin therapeutic range: 2.0-3.0 High intensity warfarin therapeutic range: 2.5-3.5 11 Because ethnic data is not always readily [...] 15-29 5 Kidney failure <15 (or dialysis) 12 [facility] Severe Sepsis and Septic Shock Management Bundle Measure requires all lactic acids initially measuring >2.0 mmol/L be repeated. 13 Because ethnic data is not always readily [...] 5 Kidney failure <15 (or dialysis) Procedures Description No Information Available Medical Devices Description No Information Available Encounters Type Date Location Provider Dx Diagnosis Office Visit 10/19/2018 Main Office Kyree Del Valle03.116 Cellulitis of left 9:40a MD Darinel lower limb Office Visit 08/17/2018 Main Office Nella Luna, G40.802 Other epilepsy , not 10:30a PA intractable, without status epilepticus Office Visit 06/07/2018 Main Office Oleg Jameson, B30.1 Conjunctivitis due to 2:40p M.D. adenovirus Office Visit 05/31/2018 Main Office Oleg Jameson, G40.802 Other epilepsy, not 2:00p M.D. intractable, without status epilepticus G47.33 Obstructive sleep apnea (adult) (pediatric) F41.9 Anxiety disorder, unspecified Assessments Date Code Description Provider 10/25/2018 G40.802 Other epilepsy, not intractable, without Oleg Jameson M.D. status epilepticus 10/25/2018 L03.116 Cellulitis of left lower limb Oleg Jameson M.D. 10/19/2018 L03.116 Cellulitis of left lower limb Kyree Tena MD 08/17/2018 G40.802 Other epilepsy, not intractable, without CIERA Johnson status epilepticus 06/07/2018 B30.1 Conjunctivitis due to adenovirus Oleg Jameson M.D. 05/31/2018 G40.802 Other epilepsy, not intractable, without Oleg Jameson M.D. status epilepticus 05/31/2018 G47.33 Obstructive sleep apnea (adult) Oleg Jameson M.D. (pediatric) 05/31/2018 F41.9 Anxiety disorder, unspecified Oleg Jameson M.D. Plan of Treatment Future Appointment(s):03/21/2019 11:00 am - Oleg Jameson M.D. at Main [id number]/25/2018 - Oleg Jameson M.D.G40.802 Other epilepsy, not intractable , without status epilepticusComments:continue current anticonvulsant therapy, he will followup with Dr. Beckett, , flu shot was [id number] Cellulitis of left lower limbComments:bactroban prnAllComments:Medication Management Patient Understands medications he's taking? Yes No Are there Barriersto Adherence? Yes No Has the patient been asked about herbal supplements and therapies, and OTC meds? Yes No Functional Status Description No Information Available Mental Status Description No Information Available Referrals Description No Information Available
--- OUTSIDE RECORDS SUMMARY | 2018-10-28 18:15 | XMS REPORT | Continuity of Care Document ---
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 Onset: 10/13/2016 Conjunctivitis due to adenovirus Oleg Jameson M.D. [...] DR Diazepam Take One Tablet 15tabs Oleg FEvelyn 03/18/2017 2mg Tablets By Mouth Prior To Dar Jameson Medical Exams Maximum Daily Dose = One Tablet Therems-M Take One Tablet 30tabs Oleg FEvelyn 04/27/2016 Tablets By Mouth Every Dar Jameson Day Sertraline HCL Take 1 And /2 45tabs Oleg FEvelyn 03/20/2011 100mg Tablets By Mouth Dar Jameson Tablets Daily Klonopin 1 po bid 0units Oleg FEvelyn 08/28/1998 1mg Dar Jameson Triple Antibiotic apply tid prn Oleg F. Ointment cuts/scrapes Dar Jameson 1% Ointment Listerine Antiseptic rinse 1 TBLS in Oleg [...] Oleg F. Strength Dar Jameson 2000Unit Capsules Levetiracetam take one tablet Unknown 250mg by mouth twice a Tablets day (seizures) History Medications Patanol Oleg Jameson, 06/07/2018 - 0.1% Solution M.D. 06/09/2018 Tobramycin instill 1 drop into 5ml Oleg Jameson, 06/07/2018 - 0.3% affected eye every M.D. 06/12/2018 Solution 4 hours for infection Medications Administered in Office Medication SIG Qnty Indications Ordering Provider Date TB Intradermal Test Oleg Jameson M.D. 06/09/2009 Injection H1N1 MDCR vaccine any route Oleg Jameson M.D. 02/27/2009 Injection TB Intradermal Test Oleg Jameson M.D. 06/03/2008 Injection TB Intradermal Test Raghav Anna 05/16/2007 Injection TB Intradermal Test Arnold Siu-Jose G 05/08/2006 Injection TB Intradermal Test Arnold Siu-Jose G 05/04/2005 Injection Immunizations CPT Code Status Date Vaccine Lot # [id number] Given 11/06/2017 Influenza Vac, Quadriv[place] [address] Given 11/23/2016 Influenza Vac, [place]riv[place], [place] [address] Given 11/28/2015 Influenza Vac, [place]riv[place], [place] [address] Given 11/28/2011 DO Not Use Split Influenza Virus Vaccine [id number] Given 12/14/2010 Split Influenza Medicare: Fluzone [id number] 96522 Given 11/19/2007 DO Not Use Split Influenza Virus Vaccine [id number] 05337 Given 11/25/2006 DO Not Use Split Influenza Virus Vaccine [id number] 80821 Given 05/08/2006 Tdap Tetanus, W Pertussis [id number] 14004 Given 12/06/2005 DO Not Use Split Influenza Virus Vaccine 10206 Given 12/06/1999 Td Immunization, For Use In Individuals 7 Years Or Older 79633 Given 02/01/1995 Hepatitis B Immunization, [place]-19 Years 20968 Given 03/09/1994 Hepatitis B Immunization, [place]-19 Years 51093 Given 02/02/1994 Hepatitis B Immunization, -19 Years 16710 Given 09/28/1989 DT Immunization 85183 Given 09/28/1989 MMR Virus Immunization 08243 Given 09/28/1989 (IPV) Inactive Poliovirus Vaccine 21158 Given 02/07/1986 (Hib) Hemoplilus Influenza B 62915 Given 09/02/1985 (IPV) Inactive Poliovirus Vaccine 02314 Given 09/02/1985 DTP Immunization 75442 Given 08/05/1985 MMR Virus Immunization 29410 Given 04/22/1985 (IPV) Inactive Poliovirus Vaccine 26322 Given 04/22/1985 DTP Immunization 50778 Given 1984 (IPV) Inactive Poliovirus Vaccine 91061 Given 1984 DTP Immunization 10603 Given 1984 (IPV) Inactive Poliovirus Vaccine 97989 Given 1984 DTP Immunization 88688 Given 1984 (IPV) Inactive Poliovirus Vaccine 44888 Given 1984 DTP Immunization Vital Signs Date Vital Result Comment 10/19/2018 9:28am BP Systolic 110 mmHg BP Diastolic 86 mmHg Heart Rate 72 /min Body Temperature 97.7 F Respiratory Rate 16 /min Height 69.5 inches 5'9.50" Weight 190.00 lb BMI (Body Mass Index) 27.7 kg/m2 08/17/2018 10:31am BP Systolic 100 mmHg BP Diastolic 70 mmHg Heart Rate 70 /min Body Temperature 97.3 F Respiratory Rate 16 /min Weight 177.00 lb Results Test Date Facility Test Result H/L Range Note CBC Auto Diff 10/03/2018 [facility] [place] Count 4.7 10^3/uL Normal 3.5- [...] Cells % 0.0 Comp Metabolic Panel 10/03/2018 [facility] [place] Sodium 139 mmol/L Normal 135-145 Potassium 3.9 [...] Egfr 148.8 >60 1 Urinalysis Profile 08/31/2018 [facility] [place]rine Color Soo Urine Appearance Cloudy Urine Specific [place] 1.034 High 1.010-1.030 Urine pH 5.0 Normal 5-9 Urine Urobilinogen Negative Negative Urine Ketones Trace Abnormal Negative Urine Protein 2+(100 mg/dL) Abnormal Negative Urine Leukocytes Negative Negative Urine Blood Negative Negative Urine Nitrite Negative Negative Urine Bilirubin Negative Negative Urine Glucose Negative Negative Urine White Blood Cell Absent Absent Urine Red Blood Cell Absent Absent Urine Bacteria Absent Absent CBC Auto Diff 08/31/2018 [facility] [place] Blood Count 5.5 10^3/uL Normal 3.5- [...] Cells % 0.1 Laboratory test finding 08/31/2018 [facility] Lactic Acid 1.2 mmol/L Normal 0.5- 2.0 2 Inr/Protime 08/31/2018 [facility] Inr 0.99 Normal 0.82-1.09 3 Comp Metabolic Panel 08/31/2018 [facility] Sodium 141 mmol/L Normal 135-145 Potassium 4.1 [...] 114.0 >60 4 Laboratory test finding 08/31/2018 [facility] Magnesium 2.1 mg/dL Normal 1.9- 2.7 Valproic Acid (Depakene) 65.0 g/mL Normal 50-100 Laboratory test 08/17/2018 [facility] Valproic Acid 52 ug/mL 50-100 5, 6 finding [address] [facility] (Depakote)(R),[place] [address] ([phone] - Urine Culture And 08/13/2018 [facility] [place] SEE 7 Sensitivities RESULT BELOW Urinalysis 08/13/2018 [facility] [place] Color Yellow Profile Urine Appearance Clear Urine Specific [place] 1.008 Low 1.010-1.030 Urine pH 7.0 Normal [...] Present Abnormal Absent Laboratory test finding 08/13/2018 [facility] [place] Magnesium 1.9 mg/dL Normal 1.9- 2.7 Valproic Acid (Depakene) 107.0 g/mL High 50-100 Lactic Acid 1.1 mmol/L Normal 0.5-2.0 8 Comp Metabolic Panel 08/13/2018 [facility] [place] Sodium 140 mmol/L Normal 135-145 Potassium 4.0 [...] >60 Egfr 139.9 >60 9 Inr/Protime 08/13/2018 [facility] [place] Inr 0.99 Normal 0.82-1.09 10 CBC Auto Diff 08/13/2018 [facility] [place] White Blood Count 5.3 10^3/uL Normal 3.5- [...] Cells % 0.1 CBC Auto Diff 05/06/2018 [facility] [place] Blood Count 5.5 10^3/uL Normal 3.5- [...] Cells % 0.1 Comp Metabolic Panel 05/06/2018 [facility] [place] Sodium 138 mmol/L Normal 135-145 Potassium 4.0 [...] 142.1 >60 11 Laboratory test finding 05/06/2018 [facility] [place] Magnesium 1.9 mg/dL Normal 1.9- 2.7 Valproic Acid (Depakene) 97.0 g/mL Normal 50-100 CBC Auto Diff 05/05/2018 [facility] [place] Blood Count 5.9 10^3/uL Normal 3.5- [...] Cells % 0.1 Laboratory test finding 05/05/2018 [facility] [place] Lactic Acid 1.9 mmol/L Normal 0.5- 2.0 12 Inr/Protime 05/05/2018 [facility] [place] Inr 0.98 Normal 0.77-1.02 Comp Metabolic Panel 05/05/2018 [facility] [place] Sodium 139 mmol/L Normal 135-145 Potassium 3.6 [...] 142.1 >60 13 Laboratory test finding 05/05/2018 [facility] [place] Magnesium 1.8 mg/dL Low 1.9-2.7 Valproic Acid (Depakene) 102.0 g/mL High 50-100 TSH (Thyroid Stim Horm) 1.97 mcIU/mL Normal 0.34-5.60 Urinalysis Profile 05/05/2018 [facility] [place] Color Yellow Urine Appearance Cloudy Urine Specific [place] 1.030 Normal 1.010-1.030 Urine pH 5.0 Normal [...] 5 Kidney failure <15 (or dialysis) 2 [facility] Severe Sepsis and Septic Shock Management [...] 7 SEE RESULT BELOW Name: CUCA ROMAN Eligio : [address]: Nitin Acevedo MD Acct: [id number] Unit: [id number] AGE: 33 Location: ED Re08/13/18 SEX: M Status: DEP ER SPEC: [id number] FELIPE: 08/13/[address]: Nitin Acevedo MD REQ: [id number] RECD: 08/13/18 STATUS: MICHELLE PHILLIPS DR: Oleg Jameson MD _ SOURCE: URINE SPDESC: ORDERED: Urine Culture Procedure Result Reported Site Urine Culture Final 08/15/18- 0818 ML No Growth (<1,000 CFU/mL) * ML - Main Lab . END OF REPORT DEPARTMENT OF PATHOLOGY, [address] [place] [address] Ra Galvan M.D. Director [facility] # [id number] 8 [facility] Severe Sepsis and Septic Shock Management [...] 5 Kidney failure <15 (or dialysis) 12 [facility] Severe Sepsis and Septic Shock Management [...] Date Location Provider Dx Diagnosis Office Visit 08/17/2018 Main Office Nella Luna, [...] disorder, unspecified Assessments Date Code Description Provider 10/19/2018 L03.116 Cellulitis of left lower limb [...] Oleg Jameson M.D. Plan of Treatment Future Appointment(s):10/25/2018 11:20 am - Oleg Jameson M.D. at [facility]10/19/2018 - Kyree Tena MDL03.116 Cellulitis of left lower limbAllNew Medication:Doxycycline Monohydrate 100 mg - 1 by mouth twice a dayComments:Medication Management Patient Understands medications he's taking? Yes No Are there Barriersto Adherence? Yes No Has the patient been asked about herbal supplements and therapies, and OTC meds? Yes No Functional Status Description No Information Available Mental Status Description No Information Available Referrals Description No Information Available
[2018-10-28 18:53] VITALS: BP 109/64
== END 2018-10-28 18:51 | disposition home or self-care (01) ==
LOC: ED 14:27
DX: R56.9 Unspecified convulsions (principal); F41.9 Anxiety disorder, unspecified; F32.9 Major depressive disorder, single episode, unspecified; Z79.899 Other long term (current) drug therapy
CPT/HCPCS: 36415; 80053; 80177; 80320; 83605; 85025; 85610; 96361; 96374; 99282; G0480; J2060

== ENCOUNTER 2018-11-20 17:30 | Emergency (ER) | payer MEDICARE, MEDICAID ==
[2018-11-20] MEDS ORDERED: NS 0.9% 1000 ML** 1,000 ML IV ONE ×2 (18:13→21:50)
[2018-11-20] MEDS ORDERED: Ondansetron INJ* 2 MG/ML VIAL IV ONE (18:13)
[2018-11-20] MEDS ORDERED: Morphine 4 MG/ML VIAL (1 ml) 4 MG/ML VIAL IV ONE ×2 (18:13→21:06)
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
[2018-11-20 18:35] LABS: ABS Lymphocytes 1.8 10^3/ul (1.0-4.8); ABS Monocytes 0.6 10^3/ul (0-0.8); ABS Neutrophils 3.4 10^3/ul (1.5-7.7); Eosinophil % 0.5 %; Hematocrit 39 % (42-52); Hemoglobin 13.5 g/dL (14.0-18.0); Lymphocyte % 30.4 %; Mean Corpuscular HGB Conc 34 g/dL (31-36); Mean Corpuscular Hemoglobin 29 pg (27-31); Mean Corpuscular Volume 83 fL (80-94); Mean Platelet Volume 8.5 fL (7.4-10.4); Nucleated Red Blood Cells % 0.1; Platelet Count 138 10^3/uL (150-450); Red Blood Count 4.74 10^6 /uL (4.18-5.48); Red Cell Distribution Width 14 % (10-15); White Blood Count 5.9 10^3/uL (3.5-10.8)
[2018-11-20 18:45] LABS: Albumin 4.3 g/dL (3.2-5.2); Albumin/Globulin Ratio 1.8 (1-3); BUN/Creatinine Ratio 18.2 (8-20); C Reactive Protein 2.2 mg/L (<8.01); Calcium 9.6 mg/dL (8.6-10.3); EGFR Non-African American 99.1 (>60); Globulin 2.4 g/dL (2-4); Total Bilirubin 0.3 mg/dL (0.2-1.0); Total Protein 6.7 g/dL (6.4-8.9)
--- OUTSIDE RECORDS SUMMARY | 2018-11-20 18:49 | XMS REPORT | Continuity of Care Document ---
:1985 External Reference #:[id number] Author Name Vimal Burnette N.P. 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 Onset: 06/23/2014 Severe cognitive impairment [...] specified Artemio Beckett M.D. Onset: 05/16/2018 conditions Social History Type Date Description Comments Sex Unknown Tobacco Use Start: Unknown Never Smoked Cigarettes Tobacco Use Start: Unknown Never Smoked Cigars Tobacco Use Start: Unknown Never Smoked A Pipe Smokeless Tobacco Never Used Smokeless Tobacco ETOH Use Denies alcohol use Tobacco Use Start: Unknown Patient has never smoked Recreational Drug Use Denies Drug Use Smoking Status Reviewed: 11/19/18 Patient has never smoked Exercise Type/Frequency Exercises [...] a day Depakote 1 tab by mouth 180tabs Vimal Burnette, 05/24/2012 500mg Tablets twice a day N.P. DR Roblero 1 tab by mouth 60tabs Artemio Beckett, 03/20/2012 1mg Tablets twice a day mdd M.D. 2 Guiatuss Clear DM 5ml po q4hrs 200ml Unknown prn mild cough 100-10mg/5ML Syrup Tylenol 2 tabs every 4 Unknown 325mg Tablets hours by mouth minor pain or fever over 100 Bactroban apply with 30units Unknown 2% Cream dressing changes tid to affected areas until healed, then prn for new areas Multi 1 tab po 1x 100tabs Unknown Vitamin/Minerals Full perday Spectrum Tablets Ibuprofen 2 tabs every 8 Unknown 200mg Tablets hours as needed w/food for pain/inflammati on Triple Antibiotic apply to open Unknown areas three 3.5-400-5000 Ointment times a day as needed for cuts/scrapes Rolaids Extra as needed Unknown Strength 675-135mg Chewtabs Diazepam 1 by mouth 1 Unknown 2mg Tablets hour prior to medical/ dental exams Sertraline HCL 1 1/2 by mouth Unknown 100mg every day Tablets Vitamin D3 Super 1 by mouth Unknown Strength every day 2000Unit Tablets Immunizations CPT Code Status Date Vaccine Lot # [id number] Given 11/16/2015 Influenza Virus Vaccine, Quadrivalent, Split, Preservative Free Vital Signs Date Vital Result Comment 11/19/2018 10:15am Height 70 inches 5'10" Weight 185.00 lb Heart Rate 67 /min BP Systolic 110 mmHg BP Diastolic 78 mmHg BMI (Body Mass Index) 26.5 kg/m2 08/21/2018 10:14am Height 70 inches 5'10" Weight 188.12 lb Heart Rate 78 /min BP Systolic Sitting 110 mmHg BP Diastolic Sitting 64 mmHg Respiratory Rate 18 /min BMI (Body Mass Index) 27.0 kg/m2 Results Test Date Facility Test Result H/L Range Note Laboratory test 08/22/2018 [facility] Valproic Acid 88.0 g/mL Normal 50-[address] ([facility] [place] [place] [address] [phone] Procedures Description No Information Available Medical Devices Description No Information Available Encounters Type Date Location Provider Dx Diagnosis Office Visit 08/21/2018 [facility] Vimal Burnette 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 convulsions 11/19/2018 F39 Unspecified mood [affective] disorder Vimal Burnette, N.P. 11/19/2018 R56.9 Unspecified convulsions Vimal Burnette, N.P. 11/19/2018 F79 Unspecified intellectual disabilities Vimal Burnette, N.P. 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 convulsions 08/21/2018 Z87.898 Personal history of other specified Vimal Burnette, N.P. conditions Plan of Treatment Future Appointment(s):02/21/2019 3:30 pm - Vimal Burnette, N.P. at [facility]11/19/2018 - Vimal Burnette, N.PEvelynF44.5 Conversion disorder with seizures or convulsionsFollow up:3 [id number] Unspecified mood [ affective] [id number] Unspecified [id number] Unspecified intellectual disabilities Functional Status Description No Information Available Mental Status Description No Information Available Referrals Description No Information Available
--- OUTSIDE RECORDS SUMMARY | 2018-11-20 18:49 | XMS REPORT | Continuity of Care Document ---
:1985 External Reference #:[id number] Author Name Oleg Jameson M.D. Address [address] [place] [address] Care Team Providers Name Role Phone Oleg Jameson MD - Family Medicine Care Team Information Informatics Nurse Specialist [phone] Problems Active Problems Provider Date Anxiety state [...] Medications SIG Qnty Indications Ordering Date Provider Divalproex Sodium 1 by mouth twice 30tabs Oleg F. 08/14/2018 500mg a day Dar Jameson Tablets DR Diazepam Take One Tablet 15tabs Oleg F. 03/18/2017 2mg Tablets By Mouth Prior To aDr Jameson Medical Exams Maximum Daily Dose = One Tablet Therems-M take one tablet 30tabs Oleg F. 04/27/2016 Tablets by mouth every Dar Jameson [...] Oleg F. 200mg Tablets pain/inflammation Dar Jameson Take with food. Guiatuss DM 5ml po [...] - cuts/scrapes MD Darinel 10/25/2018 3.5-400-5000 Ointment Doxycycline 1 by mouth twice a 14caps Kyree Kilpatrick 10/19/2018 - Monohydrate day MD Darinel 10/30/2018 100mg Capsules Patanol Oleg Jameson, 06/07/2018 - 0.1% M.D. [...] CPT Code Status Date Vaccine Lot # [id number] Given 10/25/2018 Influenza Vac, Quadrivalent, Slit Virus, Im [id number] 16637 Given 11/06/2017 Influenza Vac, [place] [address] Given 11/23/2016 Influenza Vac, [place], [place] [address] Given 11/28/2015 Influenza Vac, [place]riv[place], [place] [address] Given 11/28/2011 DO Not Use Split Influenza Virus Vaccine [id number] Given 12/14/2010 Split Influenza Medicare: Fluzone [id number] 85718 Given 11/19/2007 DO Not Use Split Influenza Virus Vaccine [id number] 46712 Given 11/25/2006 DO Not Use Split Influenza Virus Vaccine [id number] 67955 Given 05/08/2006 Tdap Tetanus, W Pertussis [id number] 85777 Given 12/06/2005 DO Not Use Split Influenza Virus Vaccine 78695 Given 12/06/1999 Td Immunization, For Use In Individuals 7 Years Or Older 53347 Given 02/01/1995 Hepatitis B Immunization, -19 Years 11505 Given 03/09/1994 Hepatitis B Immunization, [place]-19 Years 52706 Given 02/02/1994 Hepatitis B Immunization, -19 Years 47591 Given 09/28/1989 DT Immunization 68588 Given 09/28/1989 MMR Virus Immunization 36976 Given 09/28/1989 (IPV) Inactive Poliovirus Vaccine 16476 Given 02/07/1986 (Hib) Hemoplilus Influenza B 55317 Given 09/02/1985 (IPV) Inactive Poliovirus Vaccine 22252 Given 09/02/1985 DTP Immunization 97861 Given 08/05/1985 MMR Virus Immunization 67879 Given 04/22/1985 (IPV) Inactive Poliovirus Vaccine 31821 Given 04/22/1985 DTP Immunization 37341 Given 1984 (IPV) Inactive Poliovirus Vaccine 36725 Given 1984 DTP Immunization 92718 Given 1984 (IPV) Inactive Poliovirus Vaccine 34316 Given 1984 DTP Immunization 06740 Given 1984 (IPV) Inactive Poliovirus Vaccine 70355 Given 1984 DTP Immunization Vital Signs Date Vital Result Comment 10/30/2018 2:14pm BP Systolic 100 mmHg BP Diastolic 68 mmHg Heart Rate 88 /min Body Temperature 97.5 F Respiratory Rate 16 /min Weight 189.00 lb 10/25/2018 12:03pm BP Systolic 112 mmHg BP Diastolic 68 mmHg Heart Rate 70 /min Body Temperature 97.9 F Respiratory Rate 16 /min Height 69.5 inches 5'9.50" Weight 188.00 lb BMI (Body Mass Index) 27.4 kg/m2 Results Test Date Facility Test Result H/L Range Note Laboratory test 10/30/2018 [facility] Valproic Acid <pending> finding (Depakene) Laboratory test 10/28/2018 [facility] Lactic Acid 1.7 mmol/L Normal 0.5-2.0 1 finding Inr/Protime 10/28/2018 [facility] Inr 0.98 Normal 0.82-1.09 2 CBC Auto Diff 10/28/2018 [facility] White Blood 5.4 10^3/uL Normal 3.5-10.8 Count Red Blood Count 5.11 10^6/uL Normal 4.18-5.48 Hemoglobin 14.6 g/dL Normal 14.0-18.0 Hematocrit 42 % Normal 42-52 Mean Corpuscular Volume 83 fL Normal 80-94 Mean Corpuscular Hemoglobin 29 pg Normal 27-31 Mean Corpuscular HGB Conc 35 g/dL Normal 31-36 Red Cell Distribution Width 14 % Normal 10-15 Platelet Count 171 10^3/uL Normal 150-450 Mean Platelet Volume 8.5 fL Normal 7.4-10.4 Abs Neutrophils 3.0 10^3/uL Normal 1.5-7.7 Abs Lymphocytes 1.9 10^3/uL Normal 1.0-4.8 Abs Monocytes 0.4 10^3/uL Normal 0-0.8 Abs Eosinophils 0.1 10^3/uL Normal 0-0.6 Abs Basophils 0.0 10^3/uL Normal 0-0.2 Abs Nucleated RBC 0.0 10^3/uL Granulocyte % 55.6 % Lymphocyte % 35.6 % Monocyte % 7.3 % Eosinophil % 1.0 % Basophil % 0.5 % Nucleated Red Blood Cells % 0.1 Comp Metabolic Panel 10/28/2018 [facility] Sodium 135 mmol/L Normal 135-145 Potassium 3.9 mmol/L Normal 3.5-5.0 Chloride 101 mmol/L Normal 101-111 Co2 Carbon Dioxide 28 mmol/L Normal 22-32 Anion Gap 6 mmol/L Normal 2-11 Glucose 111 mg/dL High 70-100 Blood Urea Nitrogen 14 mg/dL Normal 6-24 Creatinine 0.94 mg/dL Normal 0.67-1.17 BUN/Creatinine Ratio 14.9 Normal 8-20 Calcium 9.8 mg/dL Normal 8.6-10.3 Total Protein 7.5 g/dL Normal 6.4-8.9 Albumin 4.7 g/dL Normal 3.2-5.2 Globulin 2.8 g/dL Normal 2-4 Albumin/Globulin Ratio 1.7 Normal 1-3 Total Bilirubin 0.40 mg/dL Normal 0.2-1.0 Alkaline Phosphatase 55 U/L Normal 34-104 Alt 45 U/L Normal 7-52 Ast 30 U/L Normal 13-39 Egfr Non- 91.9 >60 Egfr 111.2 >60 3 Laboratory test 10/28/2018 [facility] Alcohol < 10 mg/dL Normal <10 finding CBC Auto Diff 10/03/2018 [facility] White Blood Count 4.7 10^3/uL Normal 3.5- [...] Cells % 0.0 Comp Metabolic Panel 10/03/2018 [facility] Sodium 139 mmol/L Normal 135-145 Potassium 3.9 [...] Egfr Non- 123.0 >60 Egfr 148.8 >60 4 Laboratory test finding 08/31/2018 [facility] Magnesium 2.1 mg/dL Normal 1.9- 2.7 Valproic Acid (Depakene) 65.0 g/mL Normal 50-100 Comp Metabolic Panel 08/31/2018 [facility] Sodium 141 mmol/L Normal 135-145 Potassium 4.1 [...] Egfr Non- 94.2 >60 Egfr 114.0 >60 5 Inr/Protime 08/31/2018 [facility] Inr 0.99 Normal 0.82-1.09 6 Laboratory test 08/31/2018 [facility] Lactic Acid 1.2 mmol/L Normal 0.5-2.0 7 finding CBC Auto Diff 08/31/2018 [facility] White Blood Count 5.5 10^3/uL Normal 3.5- [...] % Nucleated Red Blood Cells % 0.1 Urinalysis Profile 08/31/2018 [facility] Urine Color Soo Urine Appearance Cloudy Urine Specific [place] 1.034 High 1.010-1.030 Urine pH 5.0 Normal 5-9 Urine Urobilinogen Negative Negative Urine Ketones Trace Abnormal Negative Urine Protein 2+(100 mg/dL) Abnormal Negative Urine Leukocytes Negative Negative Urine Blood Negative Negative Urine Nitrite Negative Negative Urine Bilirubin Negative Negative Urine Glucose Negative Negative Urine White Blood Cell Absent Absent Urine Red Blood Cell Absent Absent Urine Bacteria Absent Absent Laboratory test 08/17/2018 [facility] Valproic Acid 52 ug/mL 50-100 8, 9 finding [id number] [facility] [address] ([phone] - Urine Culture And 08/13/2018 [facility] Urine Culture SEE 10 Sensitivities RESULT BELOW Urinalysis 08/13/2018 [facility] Urine Color Yellow Profile Urine Appearance Clear Urine Specific [place] 1.008 Low 1.010-1.030 Urine pH 7.0 Normal [...] Present Abnormal Absent Laboratory test finding 08/13/2018 [facility] Magnesium 1.9 mg/dL Normal 1.9- 2.7 Valproic Acid (Depakene) 107.0 g/mL High 50-100 Lactic Acid 1.1 mmol/L Normal 0.5-2.0 11 Comp Metabolic Panel 08/13/2018 [facility] Sodium 140 mmol/L Normal 135-145 Potassium 4.0 [...] Egfr Non- 115.6 >60 Egfr 139.9 >60 12 Inr/Protime 08/13/2018 [facility] Inr 0.99 Normal 0.82-1.09 13 CBC Auto Diff 08/13/2018 [facility] White Blood Count 5.3 10^3/uL Normal 3.5- [...] Cells % 0.1 CBC Auto Diff 05/06/2018 [facility] White Blood Count 5.5 10^3/uL Normal 3.5- [...] Cells % 0.1 Comp Metabolic Panel 05/06/2018 [facility] Sodium 138 mmol/L Normal 135-145 Potassium 4.0 [...] Egfr Non- 117.4 >60 Egfr 142.1 >60 14 Laboratory test finding 05/06/2018 [facility] Magnesium 1.9 mg/dL Normal 1.9- 2.7 Valproic Acid (Depakene) 97.0 g/mL Normal 50-100 CBC Auto Diff 05/05/2018 [facility] White Blood Count 5.9 10^3/uL Normal 3.5- [...] Cells % 0.1 Laboratory test finding 05/05/2018 [facility] Lactic Acid 1.9 mmol/L Normal 0.5- 2.0 15 Inr/Protime 05/05/2018 [facility] Inr 0.98 Normal 0.77-1.02 Comp Metabolic Panel 05/05/2018 [facility] Sodium 139 mmol/L Normal 135-145 Potassium 3.6 [...] Egfr Non- 117.4 >60 Egfr 142.1 >60 16 Laboratory test finding 05/05/2018 [facility] Magnesium 1.8 mg/dL Low 1.9-2.7 Valproic Acid (Depakene) 102.0 g/mL High 50-100 TSH (Thyroid Stim Horm) 1.97 mcIU/mL Normal 0.34-5.60 Urinalysis Profile 05/05/2018 [facility] Urine Color Yellow Urine Appearance Cloudy Urine Specific [place] 1.030 Normal 1.010-1.030 Urine pH 5.0 Normal 5-9 Urine Urobilinogen Negative Negative Urine Ketones Negative Negative Urine Protein Negative Negative Urine Leukocytes Negative Negative Urine Blood Negative Negative Urine Nitrite Negative Negative Urine Bilirubin Negative Negative Urine Glucose Negative Negative 1 [place] Severe Sepsis and Septic Shock Management Bundle Measure requires all lactic acids initially measuring >2.0 mmol/L be repeated. 2 Standard intensity warfarin therapeutic range: 2.0-3.0 High intensity warfarin therapeutic range: 2.5-3.5 3 Because ethnic data is not always [...] 5 Kidney failure <15 (or dialysis) 4 Because ethnic data is not always [...] 5 Kidney failure <15 (or dialysis) 6 Standard intensity warfarin therapeutic range: 2.0-3.0 High intensity warfarin therapeutic range: 2.5-3.5 7 [facility] Severe Sepsis and Septic Shock Management Bundle Measure requires all lactic acids initially measuring >2.0 mmol/L be repeated. 8 1 serum pour off from red top tube 9 Detection Limit = 4 <4 indicates None Detected Toxicity may occur at levels of 100-500. Measurements of free unbound valproic acid may improve the assess- ment of clinical response. 10 SEE RESULT BELOW Name: CUCA ROMAN : [address]: Nitin Acevedo MD Acct: [id number] Unit: [id number] AGE: 33 Location: ED Re08/13/18 SEX: M Status: DEP ER SPEC: [id number] FELIPE: 08/13/18 [facility] DR: Nitin Acevedo MD REQ: [id number] RECD: 08/13/18 STATUS: MICHELLE PHILLIPS DR: Oleg Jameson MD _ SOURCE: URINE SPDESC: ORDERED: Urine Culture Procedure Result Reported Site Urine Culture Final 08/15/18- 0818 ML No Growth (<1,000 CFU/mL) * ML - Main Lab . END OF REPORT DEPARTMENT OF PATHOLOGY, [address] [place] [address] Ra Galvan M.D. Director [facility] # [id number] 11 [facility] Severe Sepsis and Septic Shock Management Bundle Measure requires all lactic acids initially measuring >2.0 mmol/L be repeated. 12 Because ethnic data is not always readily [...] 15-29 5 Kidney failure <15 (or dialysis) 13 Standard intensity warfarin therapeutic range: 2.0-3.0 High intensity warfarin therapeutic range: 2.5-3.5 14 Because ethnic data is not always readily [...] 15-29 5 Kidney failure <15 (or dialysis) 15 [facility] Severe Sepsis and Septic Shock Management Bundle Measure requires all lactic acids initially measuring >2.0 mmol/L be repeated. 16 Because ethnic data is not always readily [...] Date Location Provider Dx Diagnosis Office Visit 10/25/2018 Main Office Oleg Jameson, G40.802 Other epilepsy, not 11:20a M.D. intractable, without status epilepticus L03.116 Cellulitis of left lower limb Z23 Encounter for immunization Office Visit 10/19/2018 Main Office Kyree Del Valle03.116 Cellulitis of left 9:40a MD Darinel lower limb Office Visit 08/17/2018 Main Office Nella Luna, G40.802 Other epilepsy , not 10:30a PA intractable, without status epilepticus Office Visit 06/07/2018 Main Office Oleg Jameson, B30.1 Conjunctivitis due 2:40p M.D. 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 intractable, without status epilepticus G47.33 Obstructive sleep apnea (adult) (pediatric) F41.9 Anxiety disorder, unspecified Assessments Date Code Description Provider 10/30/2018 G40.802 Other epilepsy, not intractable, without Oleg Jameson M.D. status epilepticus 10/25/2018 G40.802 Other epilepsy, not intractable, without Oleg Jameson M.D. status epilepticus 10/25/2018 L03.116 Cellulitis of left lower limb Oleg Jameson M.D. 10/25/2018 Z23 Encounter for immunization Oleg Jameson M.D. 10/19/2018 L03.116 Cellulitis of [...] Oleg Jameson M.D. Plan of Treatment Future Appointment(s):01/01/2019 2:20 pm - Oleg Jameson M.D. at Main Atokyq9103/21/2019 11:00 am - Oleg Jameson M.D. at Main Cbummw8210/30/2018 - lOeg Jameson M.D.G40.802 Other epilepsy, not intractable, without status epilepticusComments:Tawanda had another pseudoseizure while attending a concert at [employer]. No alcohol was involved. Patient states he was eating and drinking normally during the day , his alf aid who is here states that he might have had a stressful encounter with another resident. Patient feels fine today. He has an appointment with Dr. Beckett next month. We will check a Depakote level and return in 2 monthsAllComments:Medication Management Patient Understands medications he's taking? Yes No Are there Barriersto Adherence? Yes No Has the patient been asked about herbal supplements and therapies, and OTC meds? Yes NoFollow up:2 months Functional Status Description No Information Available Mental Status Description No Information Available Referrals Description No Information Available
[2018-11-20] MEDS ORDERED: Iohexol 300* (CONTRAST) 10 ML SDV IV ONE (19:10)
[2018-11-20 20:06] LABS: Urine Appearance Clear; Urine Bilirubin Negative (Negative); Urine Blood Negative (Negative); Urine Color Yellow; Urine Glucose Negative (Negative); Urine Ketones Negative (Negative); Urine Nitrite Negative (Negative); Urine Protein Negative (Negative); Urine Specific Gravity 1.006 (1.010-1.030); Urine Urobilinogen Negative (Negative)
[2018-11-20] MEDS ORDERED: O ndansetron ODT 4MG 5TAB PRPK 4 MG PAK PO ONE (21:30)
[2018-11-20 23:48] VITALS: BP 116/77
== END 2018-11-20 23:46 | disposition home or self-care (01) ==
LOC: ED 17:30
DX: R10.9 Unspecified abdominal pain (principal); R11.2 Nausea with vomiting, unspecified; F32.9 Major depressive disorder, single episode, unspecified
CPT/HCPCS: 36415; 74177; 80053; 81003; 82150; 83605; 83690; 85025; 86140; 96361; 96374; 96375; 96376; 99282; A9270-GY; J2270; J2405; Q9967

== ENCOUNTER 2018-11-28 09:17 | Emergency (ER) | payer MEDICARE, MEDICAID ==
[2018-11-28] MEDS: NS 0.9% 1000 ML** 1,000 ML IV ONE (09:39)
--- OUTSIDE RECORDS SUMMARY | 2018-11-28 09:39 | XMS REPORT | Continuity of Care Document ---
:1985 External Reference #:[id number] Author Name Oleg Jameson M.D. 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 11/05/2018 2% Ointment area three times Dar Jameson a day x 7days [facility] S[facility] 500[facility] a day Dar Jameson Tablets DR Diazepam Take One Tablet 15tabs [facility]. 03/18/2017 2mg Tablets By Mouth Prior To Dar Jameson Medical Exams Maximum Daily Dose = One Tablet Theremi-M take one tablet 30tabs [facility], 04/27/2016 Tablets by mouth every M.D. day Sertraline HCL Take 1 And 1/2 [facility] 100mg Tablets By Mouth Dar Jameson Tablets Daily Klonopin 1 po bid [facility] 1mg Dar Jameson Triple Antibiotic use topically tid Unknown First Aid prn cuts & 3.5-400-5000 scraoes. Ointment Vitamin D3 Super Oleg F. Strength Dar Jameson 2000Unit Capsules Acetaminophen 2 po q4hrs prn Oleg F. 325mg pain or fever Dar Jameson Tablets <100 Guiatuss DM 5ml po q4hrs prn Oleg . 100mg/5ML Dar Jameson Syrup Ibuprofen 2 po q 8 hr prn Oleg F. 200mg Tablets pain/inflammation Dar Jameson Take with food. Listerine Antiseptic rinse 1 TBLS in Oleg F. mouth 30 seconds Dar Jameson Liquid bid History Medications Bactroban apply tid prn Oleg FEvelyn Jameson, 11/05/2018 - 2% Ointment M.DEvelyn 11/05/2018 Triple Antibiotic apply tid prn 28.400gm Oleg FEvelyn Jameson, 10/24/2018 - Plus cuts/scrapes M.DEvelyn 10/25/2018 1% Ointment Triple Antibiotic apply tid prn 28gm Kyree Kilpatrick 10/24/2018 - cuts/scrapes MD Darinel 10/25/2018 3.5-400-5000 Ointment Doxycycline 1 by mouth twice a 14caps Kyree Kilpatrick 10/19/2018 - Monohydrate day MD Darinel 10/30/2018 100mg Capsules Patanol Oleg Jameson, 06/07/2018 - 0.1% Solution M.DEvelyn 06/09/2018 Tobramycin instill 1 drop 5ml Oleg Jameson, 06/07/2018 - 0.3% into affected eye M.DEvelyn 06/12/2018 Solution every 4 hours for infection Medications Administered in [...] CPT Code Status Date Vaccine Lot # [id number] Given 10/25/2018 Influenza Vac, Quadrivalent, Slit Virus, Im [id number] 26714 Given 11/06/2017 Influenza Vac, [place] [address] Given 11/23/2016 Influenza Vac, [place] [address] Given 11/28/2015 Influenza Vac, [place], [place] [address] Given 11/28/2011 DO Not Use Split Influenza Virus Vaccine [id number] Given 12/14/2010 Split Influenza Medicare: Fluzone [id number] 48118 Given 11/19/2007 DO Not Use Split Influenza Virus Vaccine [id number] 34606 Given 11/25/2006 DO Not Use Split Influenza Virus Vaccine [id number] 08464 Given 05/08/2006 Tdap Tetanus, W Pertussis [id number] 13915 Given 12/06/2005 DO Not Use Split Influenza Virus Vaccine 83527 Given 12/06/1999 Td Immunization, For Use In Individuals 7 Years Or Older 09781 Given 02/01/1995 Hepatitis B Immunization, -19 Years 89286 Given 03/09/1994 Hepatitis B Immunization, [place]-19 Years 93278 Given 02/02/1994 Hepatitis B Immunization, -19 Years 25351 Given 09/28/1989 DT Immunization 37457 Given 09/28/1989 MMR Virus Immunization 76267 Given 09/28/1989 IPV Inactive Poliovirus Vaccine 29457 Given 02/07/1986 (Hib) Hemoplilus Influenza B 16636 Given 09/02/1985 IPV Inactive Poliovirus Vaccine 33344 Given 09/02/1985 DTP Immunization 86072 Given 08/05/1985 MMR Virus Immunization 67628 Given 04/22/1985 IPV Inactive Poliovirus Vaccine 90725 Given 04/22/1985 DTP Immunization 97965 Given 1984 IPV Inactive Poliovirus Vaccine 22960 Given 1984 DTP Immunization 05581 Given 1984 IPV Inactive Poliovirus Vaccine 08771 Given 1984 DTP Immunization 09305 Given 1984 IPV Inactive Poliovirus Vaccine 35116 Given 1984 DTP Immunization Vital Signs Date Vital Result Comment 11/23/2018 4:42pm BP Systolic 110 mmHg BP Diastolic 60 mmHg Heart Rate 72 /min Body Temperature 97.5 F Respiratory Rate 16 /min Height 69.5 inches 5'9.50" Weight 186.25 lb BMI (Body Mass Index) 27.1 kg/m2 10/30/2018 2:14pm BP Systolic 100 mmHg BP Diastolic 68 mmHg Heart Rate 88 /min Body Temperature 97.5 F Respiratory Rate 16 /min Weight 189.00 lb Results Test Date Facility Test Result H/L Range Note Comp Metabolic Panel 11/20/2018 [facility] Sodium 139 mmol/L Normal 135-145 Potassium 4.0 mmol/L Normal 3.5-5.0 Chloride 103 mmol/L Normal 101-111 Co2 Carbon Dioxide 31 mmol/L Normal 22-32 Anion Gap 5 mmol/L Normal 2-11 Glucose 99 mg/dL Normal 70-100 Blood Urea Nitrogen 16 mg/dL Normal 6-24 Creatinine 0.88 mg/dL Normal 0.67-1.17 BUN/Creatinine Ratio 18.2 Normal 8-20 Calcium 9.6 mg/dL Normal 8.6-10.3 Total Protein 6.7 g/dL Normal 6.4-8.9 Albumin 4.3 g/dL Normal 3.2-5.2 Globulin 2.4 g/dL Normal 2-4 Albumin/Globulin Ratio 1.8 Normal 1-3 Total Bilirubin 0.30 mg/dL Normal 0.2-1.0 Alkaline Phosphatase 49 U/L Normal 34-104 Alt 28 U/L Normal 7-52 Ast 23 U/L Normal 13-39 Egfr Non- 99.1 >60 Egfr 120.0 >60 1 Laboratory test finding 11/20/2018 [facility] [place] Amylase 47 U/L Normal 29-103 Lipase 25 U/L Normal 11.0-82.0 C Reactive Protein 2.20 mg/L Normal <8.01 CBC Auto Diff 11/20/2018 [facility] [place] White Blood Count 5.9 10^3/uL Normal 3.5- 10.8 Red Blood Count 4.74 10^6/uL Normal 4.18-5.48 Hemoglobin 13.5 g/dL Low 14.0-18.0 Hematocrit 39 % Low 42-52 Mean Corpuscular Volume 83 fL Normal 80-94 Mean Corpuscular Hemoglobin 29 pg Normal 27-31 Mean Corpuscular HGB Conc 34 g/dL Normal 31-36 Red Cell Distribution Width 14 % Normal 10-15 Platelet Count 138 10^3/uL Low 150-450 Mean Platelet Volume 8.5 fL Normal 7.4-10.4 Abs Neutrophils 3.4 10^3/uL Normal 1.5-7.7 Abs Lymphocytes 1.8 10^3/uL Normal 1.0-4.8 Abs Monocytes 0.6 10^3/uL Normal 0-0.8 Abs Eosinophils 0.0 10^3/uL Normal 0-0.6 Abs Basophils 0.0 10^3/uL Normal 0-0.2 Abs Nucleated RBC 0.0 10^3/uL Granulocyte % 58.3 % Lymphocyte % 30.4 % Monocyte % 10.5 % Eosinophil % 0.5 % Basophil % 0.3 % Nucleated Red Blood Cells % 0.1 Laboratory test finding 11/20/2018 [facility] [place] Lactic Acid 1.3 mmol/L Normal 0.5- 2.0 2 Urinalysis Profile 11/20/2018 [facility] [place] Urine Color Yellow Urine Appearance Clear Urine Specific [place] 1.006 Low 1.010-1.030 Urine pH 7.0 Normal 5-9 Urine Urobilinogen Negative Negative Urine Ketones Negative Negative Urine Protein Negative Negative Urine Leukocytes Negative Negative Urine Blood Negative Negative Urine Nitrite Negative Negative Urine Bilirubin Negative Negative Urine Glucose Negative Negative Laboratory test 10/30/2018 [facility] [place] Valproic Acid 103.0 g/mL High 50-100 3 , 4 finding (Depakene) Laboratory test 10/28/2018 [facility] [place] Lactic Acid 1.7 mmol/L Normal 0.5-2.0 5 finding Inr/Protime 10/28/2018 [facility] [place] Inr 0.98 Normal 0.82-1.09 6 CBC Auto Diff 10/28/2018 [facility] [place] White Blood Count 5.4 10^3/uL Normal 3.5- 10.8 Red Blood Count 5.11 10^6/uL Normal 4.18-5.48 [...] Cells % 0.1 Comp Metabolic Panel 10/28/2018 [facility] [place] Sodium 135 mmol/L Normal 135-145 Potassium 3.9 [...] Egfr Non- 91.9 >60 Egfr 111.2 >60 7 Laboratory test finding 10/28/2018 [facility] [place] Alcohol < 10 mg/dL Normal <10 Levetiracetam (Keppra) <2.0 g/mL Abnormal 8 CBC Auto Diff 10/03/2018 [facility] [place] White Blood Count 4.7 10^3/uL Normal 3.5- [...] Cells % 0.0 Comp Metabolic Panel 10/03/2018 [facility] [place] Sodium 139 mmol/L Normal 135-145 Potassium 3.9 [...] Egfr Non- 123.0 >60 Egfr 148.8 >60 9 Laboratory test finding 08/31/2018 [facility] Magnesium 2.1 mg/dL Normal 1.9- 2.7 Valproic Acid (Depakene) 65.0 g/mL Normal 50-100 Comp Metabolic Panel 08/31/2018 [facility] Sodium 141 [...] Egfr Non- 94.2 >60 Egfr 114.0 >60 10 Inr/Protime 08/31/2018 [facility] Inr 0.99 Normal 0.82-1.09 11 Laboratory test 08/31/2018 [facility] [place] Lactic Acid 1.2 mmol/L Normal 0.5-2.0 12 finding CBC Auto Diff 08/31/2018 [facility] [place] White Blood 5.5 10^3/uL Normal 3.5-10.8 Count Red Blood Count 4.88 10^6/uL Normal 4.18-5.48 [...] Blood Cells % 0.1 Urinalysis Profile 08/31/2018 [facility] [place] Urine Color Soo Urine Appearance Cloudy Urine Specific [place] 1.034 High 1.010-1.030 Urine pH 5.0 Normal 5-9 Urine Urobilinogen Negative Negative Urine Ketones Trace Abnormal Negative Urine Protein 2+(100 mg/dL) Abnormal Negative Urine Leukocytes Negative Negative Urine Blood Negative Negative Urine Nitrite Negative Negative Urine Bilirubin Negative Negative Urine Glucose Negative Negative Urine White Blood Cell Absent Absent Urine Red Blood Cell Absent Absent Urine Bacteria Absent Absent Laboratory 08/17/2018 [facility] Valproic Acid 52 ug/mL 50-100 13, test finding [address] [facility] (Depakote)(R),[address] [place] [address] (524)- - CBC Auto Diff 08/13/2018 [facility] [place] White Blood Count 5.3 Normal 3.5-10.8 10^3/uL Red Blood Count 4.74 10^6/uL Normal 4.18-5.48 [...] % Nucleated Red Blood Cells % 0.1 Inr/Protime 08/13/2018 [facility] Inr 0.99 Normal 0.82-1.09 15 Comp Metabolic Panel 08/13/2018 [facility] Sodium 140 mmol/L Normal 135-145 Potassium 4.0 [...] Egfr Non- 115.6 >60 Egfr 139.9 >60 16 Laboratory test finding 08/13/2018 [facility] [place] Magnesium 1.9 mg/dL Normal 1.9- 2.7 Valproic Acid (Depakene) 107.0 g/mL High 50-100 Lactic Acid 1.1 mmol/L Normal 0.5-2.0 17 Urinalysis Profile 08/13/2018 [facility] [place] Urine Color Yellow Urine Appearance Clear Urine Specific [place] 1.008 Low 1.010-1.030 Urine pH 7.0 Normal 5-9 Urine Urobilinogen Negative Negative Urine Ketones Negative Negative Urine Protein Negative Negative Urine Leukocytes Negative Negative Urine Blood Negative Negative Urine Nitrite Negative Negative Urine Bilirubin Negative Negative Urine Glucose Negative Negative Urine White Blood Cell Trace(0-5/hpf) Absent Urine Red Blood Cell Trace(0-2/hpf) Absent Urine Bacteria Absent Absent Urine Hyaline Casts Present Abnormal Absent Urine Culture And Sensitivities 08/13/2018 [facility] [place]rine Culture SEE RESULT BELOW 18 1 Because ethnic data is not always [...] 5 Kidney failure <15 (or dialysis) 2 [facility] Severe Sepsis and Septic Shock Management Bundle Measure requires all lactic acids initially measuring >2.0 mmol/L be repeated. 3 [id number] 4 [id number] 5 [facility] Severe Sepsis and Septic Shock Management Bundle Measure requires all lactic acids initially measuring >2.0 mmol/L be repeated. 6 Standard intensity warfarin therapeutic range: 2.0-3.0 High intensity warfarin therapeutic range: 2.5-3.5 7 Because ethnic data is not always [...] 5 Kidney failure <15 (or dialysis) 8 REFERENCE VALUE 12.0 - 46.0 ADDITIONAL INFORMATION This test was developed and its performance characteristics determined by [facility] in a manner consistent with CLIA requirements. This test has not been cleared or approved by the U.S. Food and Drug Administration. Test Performed by: [facility] - [address] [address] Bank Teller: Oswaldo Hernandez M.D. Ph.D.; CLIA# [id number] 9 Because ethnic data is not always [...] 5 Kidney failure <15 (or dialysis) 10 Because ethnic data is not always readily [...] 15-29 5 Kidney failure <15 (or dialysis) 11 Standard intensity warfarin therapeutic range: 2.0-3.0 High intensity warfarin therapeutic range: 2.5-3.5 12 [facility] Severe Sepsis and Septic Shock Management Bundle Measure requires all lactic acids initially measuring >2.0 mmol/L be repeated. 13 1 serum pour off from red top tube 14 Detection Limit = 4 <4 indicates None Detected Toxicity may occur at levels of 100-500. Measurements of free unbound valproic acid may improve the assess- ment of clinical response. 15 Standard intensity warfarin therapeutic range: 2.0-3.0 High intensity warfarin therapeutic range: 2.5-3.5 16 Because ethnic data is not always [...] 15-29 5 Kidney failure <15 (or dialysis) 17 [facility] Severe Sepsis and Septic Shock Management Bundle Measure requires all lactic acids initially measuring >2.0 mmol/L be repeated. 18 SEE RESULT BELOW Name: CUCA ROMAN : [address]: Nitin Acevedo MD Acct: [id number] Unit: [id number] AGE: 33 Location: ED Re08/13/18 SEX: M Status: DEP ER SPEC: [id number] FELIPE: 08/13/[address] [facility] [address]: Nitin Acevedo MD REQ: [id number] RECD: 08/13/18 STATUS: MICHELLE PHILLIPS DR: Oleg Jameson MD _ SOURCE: URINE SPDESC: ORDERED: Urine Culture Procedure Result Reported Site Urine Culture Final 08/15/18- 0818 ML No Growth (<1,000 CFU/mL) * ML - Main Lab . END OF REPORT DEPARTMENT OF PATHOLOGY, [address] [place] [address] Ra Galvan M.D. 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 intractable, without status epilepticus L03.116 Cellulitis of left lower limb Z23 Encounter for immunization Office Visit 10/19/2018 Main Office Kyree Del Valle03.116 Cellulitis of left 9:40a MD Darinel lower limb Office Visit 08/17/2018 Main Office Nella Luna G40.802 Other epilepsy , not 10:30a PA intractable, without status epilepticus Office Visit 06/07/2018 Main Office Oleg Jameson, B30.1 Conjunctivitis due 2:40p M.D. 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 intractable, without status epilepticus G47.33 Obstructive sleep apnea (adult) (pediatric) F41.9 Anxiety disorder, unspecified Assessments Date Code Description Provider 11/23/2018 G40.802 Other epilepsy, not intractable, without Oleg Jameson M.D. status epilepticus 10/30/2018 G40.802 Other epilepsy, not intractable, without [...] pm - Oleg Jameson M.D. at Main Pmdvub0903/21/2019 11:00 am - Oleg Jameson M.D. at Main Rpiumv0711/23/2018 - Oleg Jameson M.D.G40.802 Other epilepsy, not intractable, without status epilepticusComments:no change, continue present medication, will follow up in 2 months Functional Status Description No Information Available Mental Status Description No Information Available Referrals Description No Information Available
[2018-11-28 10:10] LABS: Urine Appearance Cloudy; Urine Bacteria Absent (Absent); Urine Bilirubin Negative (Negative); Urine Blood Negative (Negative); Urine Color Amber; Urine Glucose Negative (Negative); Urine Ketones Trace (Negative); Urine Nitrite Negative (Negative); Urine Protein 1+(30 mg/dL) (Negative); Urine Red Blood Cell Absent (Absent); Urine Specific Gravity 1.033 (1.010-1.030); Urine Urobilinogen Negative (Negative); Urine White Blood Cell Trace(0-5/hpf) (Absent)
[2018-11-28 10:37] LABS: ABS Basophils 0.1 10^3/ul (0-0.2); ABS Eosinophils 0.1 10^3/ul (0-0.6); ABS Monocytes 0.7 10^3/ul (0-0.8); ABS Neutrophils 2.4 10^3/ul (1.5-7.7); Hematocrit 38 % (42-52); Hemoglobin 12.8 g/dL (14.0-18.0); Lymphocyte % 37.7 %; Mean Corpuscular HGB Conc 34 g/dL (31-36); Mean Corpuscular Hemoglobin 29 pg (27-31); Mean Corpuscular Volume 84 fL (80-94); Mean Platelet Volume 8.5 fL (7.4-10.4); Nucleated Red Blood Cells % 0.4; Platelet Count 130 10^3/uL (150-450); Red Blood Count 4.49 10^6 /uL (4.18-5.48); Red Cell Distribution Width 14 % (10-15); White Blood Count 5.2 10^3/uL (3.5-10.8)
[2018-11-28 10:54] LABS: Albumin 3.8 g/dL (3.2-5.2); Albumin/Globulin Ratio 1.7 (1-3); BUN/Creatinine Ratio 20.3 (8-20); Calcium 8.4 mg/dL (8.6-10.3); EGFR African American 146.5 (>60); EGFR Non-African American 121.1 (>60); Globulin 2.3 g/dL (2-4); Magnesium 1.8 mg/dL (1.9-2.7); Potassium 3.3 mmol/L (3.5-5.0); Total Bilirubin 0.5 mg/dL (0.2-1.0); Total Protein 6.1 g/dL (6.4-8.9)
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
[2018-11-28 13:09] VITALS: BP 102/65
== END 2018-11-28 13:08 | disposition home or self-care (01) ==
LOC: EDBD → MERGE 09:17 → ED 09:17
DX: R55 Syncope and collapse (principal); W10.9XXA Fall (on) (from) unspecified stairs and steps, initial encounter; Y92.009 Unspecified place in unspecified non-institutional (private) residence as the place of occurrence of the external cause; F32.9 Major depressive disorder, single episode, unspecified; F41.0 Panic disorder [episodic paroxysmal anxiety]; M50.321 Other cervical disc degeneration at C4-C5 level; Z79.899 Other long term (current) drug therapy
CPT/HCPCS: 36415; 70450; 71045; 72125; 80053; 80164; 81003; 81015; 83605; 83735; 84484; 85025; 87086; 93005; 96360; 96361; 99284

== ENCOUNTER 2019-01-08 14:21 | Emergency (ER) | payer MEDICARE, MEDICAID ==
[2019-01-08] MEDS ORDERED: NS 0.9% 1000 ML** 2,000 ML IV ONE (14:24)
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
[2019-01-08 15:13] LABS: ABS Eosinophils 0.1 10^3/ul (0-0.6); ABS Lymphocytes 2.1 10^3/ul (1.0-4.8); ABS Monocytes 0.6 10^3/ul (0-0.8); ABS Neutrophils 2.2 10^3/ul (1.5-7.7); Eosinophil % 1.1 %; Hematocrit 39 % (42-52); Hemoglobin 13.6 g/dL (14.0-18.0); Lymphocyte % 41.8 %; Mean Corpuscular HGB Conc 35 g/dL (31-36); Mean Corpuscular Hemoglobin 29 pg (27-31); Mean Corpuscular Volume 83 fL (80-94); Mean Platelet Volume 8.5 fL (7.4-10.4); Platelet Count 135 10^3/uL (150-450); Red Blood Count 4.68 10^6 /uL (4.18-5.48); Red Cell Distribution Width 14 % (10-15)
[2019-01-08 15:18] LABS: INR 1.05 (0.82-1.09)
[2019-01-08 15:37] LABS: Urine Appearance Cloudy; Urine Bilirubin Negative (Negative); Urine Blood Negative (Negative); Urine Color Yellow; Urine Glucose Negative (Negative); Urine Ketones Negative (Negative); Urine Nitrite Negative (Negative); Urine Protein Negative (Negative); Urine Specific Gravity 1.031 (1.010-1.030); Urine Urobilinogen Negative (Negative)
[2019-01-08 15:38] LABS: ALT 26 U/L (7-52); AST 22 U/L (13-39); Albumin 4.1 g/dL (3.2-5.2); Albumin/Globulin Ratio 1.6 (1-3); Alkaline Phosphatase 46 U/L (34-104); Anion Gap 5 mmol/L (2-11); BUN/Creatinine Ratio 22.1 (8-20); Blood Urea Nitrogen 19 mg/dL (6-24); CO2 Carbon Dioxide 29 mmol/L (22-32); Calcium 9.2 mg/dL (8.6-10.3); Chloride 106 mmol/L (101-111); Creatine Kinase 78 U/L (10-223); EGFR African American 123.2 (>60); EGFR Non-African American 101.8 (>60); Globulin 2.5 g/dL (2-4); Glucose 100 mg/dL (70-100); Magnesium 1.8 mg/dL (1.9-2.7); Potassium 3.4 mmol/L (3.5-5.0); Sodium 140 mmol/L (135-145); Total Protein 6.6 g/dL (6.4-8.9)
[2019-01-08 15:40] LABS: Alcohol < 10 mg/dL (<10)
[2019-01-08 16:05] LABS: Urine Benzodiazepine Screen Presumptive Positive (None Detect); Urine Opiates Screen None Detected (None Detect)
[2019-01-08] MEDS ORDERED: Potassium Chlor TAB* 20 MEQ TAB.ER PO ONE (17:47)
[2019-01-08 17:59] VITALS: BP 105/55
== END 2019-01-08 17:57 | disposition home or self-care (01) ==
LOC: ED 14:21
DX: R56.9 Unspecified convulsions (principal); G93.0 Cerebral cysts
CPT/HCPCS: 36415; 70450; 71045; 80053; 80164; 80307; 80320; 81003; 82550; 83605; 83735; 85025; 85610; 93005; 96360; 96361; 99283; A9270-GY; G0480

== ENCOUNTER 2019-01-10 15:21 | Emergency (ER) | payer MEDICARE, MEDICAID ==
[2019-01-10] MEDS ORDERED: NS 0.9% 1000 ML** 1,000 ML IV ONE (15:30)
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
[2019-01-10 15:49] LABS: ABS Lymphocytes 1.9 10^3/ul (1.0-4.8); ABS Monocytes 0.5 10^3/ul (0-0.8); ABS Neutrophils 2.7 10^3/ul (1.5-7.7); Eosinophil % 0.8 %; Hematocrit 40 % (42-52); Hemoglobin 13.6 g/dL (14.0-18.0); Lymphocyte % 36.5 %; Mean Corpuscular HGB Conc 35 g/dL (31-36); Mean Corpuscular Hemoglobin 29 pg (27-31); Mean Corpuscular Volume 83 fL (80-94); Mean Platelet Volume 8.4 fL (7.4-10.4); Nucleated Red Blood Cells % 0.1; Platelet Count 138 10^3/uL (150-450); Red Blood Count 4.73 10^6 /uL (4.18-5.48); Red Cell Distribution Width 14 % (10-15); White Blood Count 5.2 10^3/uL (3.5-10.8)
[2019-01-10 16:00] LABS: INR 1.01 (0.82-1.09)
[2019-01-10 16:08] LABS: ALT 26 U/L (7-52); AST 23 U/L (13-39); Albumin 4.3 g/dL (3.2-5.2); Albumin/Globulin Ratio 1.5 (1-3); Alkaline Phosphatase 50 U/L (34-104); Anion Gap 5 mmol/L (2-11); BUN/Creatinine Ratio 17.4 (8-20); Blood Urea Nitrogen 16 mg/dL (6-24); CO2 Carbon Dioxide 32 mmol/L (22-32); Calcium 9.3 mg/dL (8.6-10.3); Chloride 104 mmol/L (101-111); Creatine Kinase 82 U/L (10-223); EGFR Non-African American 94.2 (>60); Globulin 2.8 g/dL (2-4); Glucose 89 mg/dL (70-100); Magnesium 1.9 mg/dL (1.9-2.7); Potassium 4.1 mmol/L (3.5-5.0); Sodium 141 mmol/L (135-145); Total Protein 7.1 g/dL (6.4-8.9)
[2019-01-10 16:24] LABS: Alcohol < 10 mg/dL (<10)
[2019-01-10 18:40] LABS: Urine Appearance Cloudy; Urine Bilirubin Negative (Negative); Urine Blood Negative (Negative); Urine Color Yellow; Urine Glucose Negative (Negative); Urine Ketones Negative (Negative); Urine Nitrite Negative (Negative); Urine Protein Negative (Negative); Urine Specific Gravity 1.017 (1.010-1.030); Urine Urobilinogen Positive (Negative)
[2019-01-10] MEDS ORDERED: Divalproex DR TAB(*) 250 MG PO ONE (18:41)
[2019-01-10 19:22] LABS: Urine Benzodiazepine Screen None Detected (None Detect); Urine Opiates Screen None Detected (None Detect)
[2019-01-10 19:23] VITALS: BP 134/78
== END 2019-01-10 19:22 | disposition home or self-care (01) ==
LOC: ED 15:21
DX: R56.9 Unspecified convulsions (principal); F32.9 Major depressive disorder, single episode, unspecified; F41.0 Panic disorder [episodic paroxysmal anxiety]; Z79.899 Other long term (current) drug therapy
CPT/HCPCS: 36415; 80053; 80164; 80307; 80320; 81003; 82550; 83605; 83735; 85025; 85610; 93005; 96360; 99283; A9270-GY; G0480

== ENCOUNTER 2019-03-12 17:37 | Inpatient (IN) | payer MEDICARE, MEDICAID ==
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
[2019-03-12 18:14] LABS: ABS Basophils 0.1 10^3/ul (0-0.2); ABS Lymphocytes 1.5 10^3/ul (1.0-4.8); ABS Monocytes 0.5 10^3/ul (0-0.8); ABS Neutrophils 3.1 10^3/ul (1.5-7.7); Eosinophil % 0.7 %; Hematocrit 39 % (42-52); Hemoglobin 13.5 g/dL (14.0-18.0); Lymphocyte % 29.6 %; Mean Corpuscular HGB Conc 34 g/dL (31-36); Mean Corpuscular Hemoglobin 29 pg (27-31); Mean Corpuscular Volume 84 fL (80-94); Mean Platelet Volume 8.5 fL (7.4-10.4); Nucleated Red Blood Cells % 0.1; Platelet Count 139 10^3/uL (150-450); Red Blood Count 4.71 10^6 /uL (4.18-5.48); Red Cell Distribution Width 14 % (10-15); White Blood Count 5.1 10^3/uL (3.5-10.8)
[2019-03-12 18:29] LABS: Albumin 4.3 g/dL (3.2-5.2); Albumin/Globulin Ratio 1.7 (1-3); BUN/Creatinine Ratio 19.2 (8-20); EGFR African American 104.7 (>60); EGFR Non-African American 86.5 (>60); Globulin 2.6 g/dL (2-4); Potassium 3.8 mmol/L (3.5-5.0); Total Bilirubin 0.4 mg/dL (0.2-1.0); Total Protein 6.9 g/dL (6.4-8.9)
--- OUTSIDE RECORDS SUMMARY | 2019-03-12 19:26 | XMS REPORT | Continuity of Care Document ---
:1985 External Reference #:[id number] Author Name Vimal Burnette N.P. (transmitted by agent of provider Maya Shaver) Address [address], [place] [address] Care Team Providers Name Role Phone Oleg Jameson MD - Family Medicine Care Team Information [employer] [phone] Problems Active Problems Provider Date Impacted cerumen [...] Use Denies Drug Use Smoking Status Reviewed: 02/21/19 Patient has never smoked Exercise Type/Frequency Exercises regularly Exercise Type/Frequency Exercises at a health club [employer] times a week Allergies, Adverse Reactions, Alerts Description No Known Drug Allergies Medications Active Medications SIG Qnty Indications Ordering Provider Date Clonazepam Take One Tablet 60tabs Nicolás Hammer, 02/11/2019 1mg By Mouth Twice A M.D. Tablets Day Maximum Daily Dose = Two Tablets Listerine Rinse 15cc in Unknown 11/25/2015 Liquid mouth for 30 seconds twice a day Guiatuss Clear DM 5ml po q4hrs prn 200ml Unknown mild cough 100-10mg/5ML Syrup Tylenol 2 tabs every 4 Unknown 325mg Tablets hours by mouth minor pain or fever over 100 Bactroban apply with 30units Unknown 2% Cream dressing changes tid to affected areas until healed, then prn for new areas Multi 1 tab po 1x 100tabs Unknown Vitamin/Minerals perday Full Spectrum Tablets Ibuprofen 2 tabs every 8 Unknown 200mg hours as needed Tablets w/food for pain/inflammation Triple Antibiotic apply to open Unknown areas three times 3.5-400-5000 a day as needed Ointment for cuts/scrapes Rolaids Extra as needed Unknown Strength 675-135mg Chewtabs Diazepam 1 by mouth 1 hour Unknown 2mg Tablets prior to medical/ dental exams Sertraline HCL 1 1/2 by mouth Unknown 100mg every day Tablets Vitamin D3 Super 1 by mouth every Unknown Strength day 2000Unit Tablets Depakote 1 by mouth twice 180tabs Vimal Burnette, 500mg a day (take with N.P. Tablets DR 250 MG Depakote, for a total of 750 MG bid) Depakote 1 by mouth twice 180tabs Vimal Burnette, 250mg a day (take with N.P. Tablets DR 500 MG Depakote, for a total of 750 MG bid) Immunizations CPT Code Status Date Vaccine Lot # [id number] Given 11/16/2015 Influenza Virus Vaccine, Quadrivalent, Split, Preservative Free Vital Signs Date Vital Result Comment 02/21/2019 3:31pm Height 70 inches 5'10" Weight 180.00 lb Heart Rate 77 /min BP Systolic 118 mmHg BP Diastolic 88 mmHg BMI (Body Mass Index) 25.8 kg/m2 01/17/2019 3:59pm Height 70 inches 5'10" Weight 182.00 lb Heart Rate 77 /min BP Systolic 120 mmHg BP Diastolic 90 mmHg BMI (Body Mass Index) 26.1 kg/m2 Results Test Acquired Date Facility Test Result H/L Range Note Laboratory test 01/24/2019 [facility] Valproic Acid 94.0 Normal 50-[address] (Depakene) g/[place] [address] [phone] CBC Auto Diff 01/24/2019 [facility] White Blood 4.9 Normal 3.5 -10.[address] Count 10^3/[place] [address] [phone] Red Blood Count 4.88 10^6/uL Normal 4.18-5.48 Hemoglobin 14.1 g/dL Normal 14.0-18.0 Hematocrit 41 % Low 42-52 Mean Corpuscular Volume 84 fL Normal 80-94 Mean Corpuscular Hemoglobin 29 pg Normal 27-31 Mean Corpuscular HGB Conc 35 g/dL Normal 31-36 Red Cell Distribution Width 14 % Normal 10-15 Platelet Count 149 10^3/uL Low 150-450 Mean Platelet Volume 9.3 fL Normal 7.4-10.4 Abs Neutrophils 2.5 10^3/uL Normal 1.5-7.7 Abs Lymphocytes 1.9 10^3/uL Normal 1.0-4.8 Abs Monocytes 0.4 10^3/uL Normal 0-0.8 Abs Eosinophils 0.0 10^3/uL Normal 0-0.6 Abs Basophils 0.0 10^3/uL Normal 0-0.2 Abs Nucleated RBC 0.0 10^3/uL Granulocyte % 52.3 % Lymphocyte % 38.1 % Monocyte % 8.2 % Eosinophil % 1.0 % Basophil % 0.4 % Nucleated Red Blood Cells % 0.1 Comp Metabolic 01/24/2019 [facility] Sodium 141 mmol/L Normal 135-[address] [place] [address] [phone] Potassium 3.5 mmol/L Normal 3.5-5.0 Chloride 107 mmol/L Normal 101-111 Co2 Carbon Dioxide 27 mmol/L Normal 22-32 Anion Gap 7 mmol/L Normal 2-11 Glucose 106 mg/dL High 70-100 Blood Urea Nitrogen 17 mg/dL Normal 6-24 Creatinine 0.88 mg/dL Normal 0.67-1.17 BUN/Creatinine Ratio 19.3 Normal 8-20 Calcium 9.4 mg/dL Normal 8.6-10.3 Total Protein 6.6 g/dL Normal 6.4-8.9 Albumin 4.3 g/dL Normal 3.2-5.2 Globulin 2.3 g/dL Normal 2-4 Albumin/Globulin Ratio 1.9 Normal 1-3 Total Bilirubin 0.20 mg/dL Normal 0.2-1.0 Alkaline Phosphatase 56 U/L Normal 34-104 Alt 26 U/L Normal 7-52 Ast 25 U/L Normal 13-39 Egfr Non- 99.1 >60 Egfr 120.0 >60 1 Laboratory test 08/22/2018 [facility] Valproic Acid 88.0 Normal 50-[address] (Depakene) g/[place] [address] [phone] Because ethnic data is not always [...] Date Location Provider Dx Diagnosis Office Visit 01/17/2019 [facility] Vimal Burnette, 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 convulsions 02/21/2019 F39 Unspecified mood [affective] disorder Vimal Burnette, N.P. 02/21/2019 F79 Unspecified intellectual disabilities Vimal Burnette, N.P. 02/21/2019 R94.02 Abnormal brain scan Vimal Burnette, N.P. 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 convulsions 01/17/2019 F39 Unspecified mood [affective] disorder Vimal Burnette, N.P. 01/17/2019 F79 Unspecified intellectual disabilities Vimal Burnette, N.P. 01/17/2019 R94.02 Abnormal brain scan Vimal Burnette, N.P. 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 convulsions 11/19/2018 F39 Unspecified mood [affective] disorder Vimal Burnette, N.P. 11/19/2018 F79 Unspecified intellectual disabilities Vimal Burnette, N.P. Plan of Treatment Future Appointment(s):07/04/2019 11:30 am - Artemio Beckett M.D. at [facility]02/21/2019 - Vimal Burnette, N.P.F44.5 Conversion disorder with seizures or convulsionsFollow up:3 monthsRecommendations:have your labs check in the morning before you take your [id number] Unspecified mood [affective] [id number] Unspecified intellectual ejmbkjrozycrU87.02 Abnormal brain scan Functional Status Description No Information Available Mental Status Description No Information Available Referrals Description No Information Available
--- OUTSIDE RECORDS SUMMARY | 2019-03-12 19:26 | XMS REPORT | Continuity of Care Document ---
:1985 External Reference #:[id number] Author Name Vimal Burnette N.P. (transmitted by agent of provider Sonal Naidu) Address [address], [place] [address] Care Team Providers Name Role Phone Oleg Jameson MD - Family Medicine Care Team Information Communication Technician [phone] Problems Active Problems Provider Date Impacted cerumen Negrito Herrera M.D. Onset: 06/23/2014 Severe cognitive impairment Nanda Castellano M.D. Onset: 10/16/2014 Dissociative convulsions Nanda Castellano M.D. Onset: 10/16/2014 Myoclonus Nanda Castellano M.D. Onset: 10/16/2014 Disturbance in sleep behavior Claribel Acuña MD Onset: 11/26/2015 Hypersomnia, unspecified Claribel Acñua MD Onset: 11/26/2015 Central perforation of tympanic [...] Onset: 05/16/2018 Personal history of other specified rAtemio Beckett M.D. Onset: 05/16/2018 conditions Social History Type Date Description Comments Sex Unknown Tobacco Use Start: Unknown Never Smoked Cigarettes Tobacco Use Start: Unknown Never Smoked Cigars Tobacco Use Start: Unknown Never Smoked A Pipe Smokeless Tobacco Never Used Smokeless Tobacco ETOH Use Denies alcohol use Tobacco Use Start: Unknown Patient has never smoked Recreational Drug Use Denies Drug Use Smoking Status Reviewed: 01/17/19 Patient has never smoked Exercise Type/Frequency Exercises [...] mouth for 30 seconds twice a day Klonopin 1 tab by mouth 60tabs Nicolás Hammer, 03/20/2012 1mg Tablets twice a day mdd [...] mouth Unknown Strength every day 2000Unit Tablets Depakote 1 by mouth Unknown 500mg Tablets twice a day DR Youte 1 by mouth Unknown 250mg Tablets twice a day Immunizations CPT Code Status Date Vaccine Lot # 71077 Given 11/16/2015 Influenza Virus Vaccine, Quadrivalent, Split, Preservative Free Vital Signs Date Vital Result Comment 01/17/2019 3:59pm Height 70 inches 5'10" Weight 182.00 lb Heart Rate 77 /min BP Systolic 120 mmHg BP Diastolic 90 mmHg BMI (Body Mass Index) 26.1 kg/m2 11/19/2018 10:15am Height 70 inches 5'10" Weight 185.00 lb Heart Rate 67 /min BP Systolic 110 mmHg BP Diastolic 78 mmHg BMI (Body Mass Index) 26.5 kg/m2 Results Test Acquired Date Facility Test Result H/L Range Note Laboratory test 08/22/2018 [facility] Valproic Acid 88.0 g/mL Normal 50-[address] (Depakene) [place] [address] [phone] Procedures Description No Information Available Medical Devices Description No Information Available Encounters Type Date Location Provider Dx Diagnosis Office Visit 11/19/2018 [facility] Vimal Burnette, 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 disorder with seizures or convulsions Z87.898 Personal history of other specified conditions Assessments Date Code Description Provider 01/17/2019 F44.5 Conversion disorder with seizures or [...] F44.5 Conversion disorder with seizures or Vimal Burnette N.PEvelyn convulsions 08/21/2018 Z87.898 Personal history of other specified Vimal Burnette N.P. conditions Plan of Treatment Future Appointment(s):02/21/2019 3:30 pm - Vimal [facility] N.P. at [facility]11/19/2018 - Vimal Burnette N.P.F44.5 Conversion disorder with seizures or convulsionsFollow up:3 [id number] Unspecified mood [ affective] [id number] Unspecified intellectual disabilities Functional Status Description No Information Available Mental Status Description No Information Available Referrals Description No Information Available
[2019-03-12] MEDS ORDERED: Acetaminophen TAB* 325 MG PO PRN (20:20)
[2019-03-12] MEDS ORDERED: clonazePAM TAB(*) 1 MG PO PRN (20:22)
[2019-03-12] MEDS ORDERED: NS 0.9% 1000 ML** 1,000 ML IV SCH (20:30)
[2019-03-12] MEDS ORDERED: Iohexol 350* (CONTRAST) 500 ML MDV IV ONE (20:51)
[2019-03-12 21:27] LABS: Troponin I 0.01 ng/mL (<0.03)
[2019-03-12 22:25] LABS: Influenza A Molecular Negative (Negative); Influenza B Molecular Negative (Negative)
--- NOTE | 2019-03-12 23:02 | HP ---
CC: Dr. Jameson; Dr. Beckett; Dr. Loza.* HISTORY AND PHYSICAL: DATE OF ADMISSION: 03/12/19 PRIMARY CARE PROVIDER: Dr. Jameson. MY ATTENDING PHYSICIAN WHILE IN THE HOSPITAL: Dr. Alejandra Grimaldo * (report dictated by Sachin Burnette NP). CHIEF COMPLAINT: Seizure, syncope. HISTORY OF PRESENT ILLNESS: Mr. Roman is a 33-year-old male patient with a history of nonepileptic events and a history of intellectual developmental delay and a history of depression and mood disorder; who has a history of again episodes where he had loss of consciousness, presumed nonepileptic events. 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 He said recently he had been dealing with having a cold and a cough. He states that it has been going on for a couple of days now. Denied any fevers or chills. He states that he had stayed hydrated today and he was eating, but he just did not feel right. He started feeling lightheaded. He asked a transmission supervisor if he could go to the break room which he did and the next thing he knew is he blacked out. He states that he fell to the ground. He states that one of his co-workers had caught him and lowered him to the ground. He did not hit his head. Per the reports from the coworker. He states that he does not recall the event, but he does recall coming to the hospital via the ambulance. There was report that he had 5 of these type of episodes where he would go out. He actually was reported to have a seizure-like activity here in the hallway. All the episodes were witnessed. He did report having a 10/10 headache when he came and he notes that he had a headache prior to this event that was mostly frontal in nature and he says his last episode was previously in January. There was concern because of the 5 episodes back to back and we were asked to evaluate for admission. He denied any chest pain prior to, no palpitations. He did admit to having lightheadedness prior to this and he says he has been taking his medications. PAST MEDICAL HISTORY: Significant for: 1. Nonepileptic events. 2. Mood disorder. PAST SURGICAL HISTORY: He has had knee surgery. HOME MEDICATIONS: Include: 1. Valium 2 mg p.o. daily as needed. 2. Klonopin 1 mg p.o. b.i.d. as needed. 3. Vitamin D3 2000 units p.o. daily. 4. Tylenol 650 mg every 4 hours as needed. 5. Zoloft 150 mg daily. 6. Triple antibiotic 1 application topically t.i.d. as needed. 7. Multivitamin 1 tablet daily. 8. Depakote 750 mg p.o. twice a day. 9. Ibuprofen 400 mg every 8 hours as needed. ALLERGIES: His allergies to medications include no known drug allergies. FAMILY HISTORY: His mother had cancer. His father he states was a drinker. SOCIAL HISTORY: He lives in a long term. He does not smoke, he does not drink. He denies any drug use. Surrogate decision maker is his sister Brigitte. REVIEW OF SYSTEMS: There is no documented fever. He denied having any significant weight change. There is no double vision. He denied having any ear discharge. He does admit to having rhinorrhea and a cough. No sore throat. No thyroid enlargement. Denied having any chest pain. There was no orthopnea. There was no nocturnal dyspnea. There was no abdominal pain. There was no nausea, no vomiting, no dysuria, no frequency. There was a concern for possible seizure and loss of consciousness. Review of 14 systems completed, all others are negative. PHYSICAL EXAMINATION GENERAL: At this time, Mr. Roman is a 33-year-old male patient. He was sitting in the ED stretcher. He does not appear to be in any acute distress. He appears to be well-nourished and well-developed. VITAL SIGNS: Blood pressure 112/81, pulse 79, respirations 20, O2 sat 98%, and temperature 99.1. HEENT: Head atraumatic and normocephalic. Eyes: EOMs are intact. Pupils were equal and reactive. Sclerae is anicteric and not pale. NECK: Supple. Throat: Oral mucosa appears to be dry. No oropharyngeal erythema. LUNGS: Clear to auscultation bilaterally. No wheezes or rhonchi. HEART: Sounds S1 and S2. He had a regular rate and rhythm. No murmurs, rubs, or gallops. ABDOMEN: Soft, flat, and nontender. Bowel sounds were present. EXTREMITIES: Pulses were 2+ throughout. He is moving all 4 extremities with 5/ 5 strength. NEUROLOGIC: He is awake, alert, oriented x3. His speech was clear. Tongue was midline. EOMs were intact. No facial drooping. His face was symmetric. He had 5/5 strength distally and proximally to the upper and lower extremities. Finger-to- nose, [id number] were intact. At this point, no gross focal deficit. Speech was at his baseline at this point. It was clear. Skin grossly intact. LABORATORY DATA: WBC of 5.1, RBC 4.71, hemoglobin 13.5, hematocrit of 39, platelet count of 139. Sodium 139, potassium 3.8, chloride 104, bicarb 27, BUN 19, creatinine 0.99, glucose 89, calcium 9.0, total bili 0.4, AST 43, ALT 53, alk phos 46. Toxicology: His Depakote level was 92. Old medical records were reviewed. He had an MRI of the brain that showed. 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 Old medical records were reviewed. ASSESSMENT AND PLAN: Mr. Roman is a 33-year-old male patient coming in today with an episode of loss of consciousness of unclear etiology. He will be admitted under observation status for: 1. Loss of consciousness. Again etiology is unclear. It could have been a nonepileptic event. However, this event was different today as he is reporting a headache which is new for him. In addition to this also is reporting lightheadedness. At this point, I will check orthostatic blood pressures. I will check an echocardiogram. I will place him on telemetry. I will get serial troponins. I will order an EEG and I have consulted Neurology and I will perform neuro checks every 4 hours. I will not add on another antiepileptic agent, an AED, at this point because of the fact that he is stable on Depakote and he has a history of nonepileptic events. That being said , if the EEG does show anything different we will need to consider a second agent. Given the history of that reported headache, the lightheadedness, and the history of deep venous anomaly, I am going to be getting a CTA of the head and neck to make sure that there are not any other vascular findings. I will get an EKG as well. 2. URI symptoms. At this point, I suspect he has a viral URI. I will get sputum culture. He is not meeting sepsis criteria, I will check a flu swab. I will get a chest x-ray as well. We will continue with supportive care. We will check for flu, sputum cultures, legionella antigen, Strep pneumo antigen, and I will order a chest x-ray. 3. Mood disorder. Continue meds as prescribed. 4. DVT prophylaxis: I have ordered SCDs. 5. Code status: Full code. 6. Fluids, electrolytes, and nutrition: He can have a regular diet. TIME SPENT: Time spent on the admission 60 minutes, greater than half the time was spent [id number] with the patient doing my history and physical. Other half the time was spent going over the plan of care with the patient, implementing the plan of care. I discussed the plan of care with my attending Dr. Grimaldo, she is in agreement. SACHIN BURNETTE, HUANG [id number]/CPS #: [id number] CHARITO
[2019-03-12] MEDS: Divalproex DR TAB(*) 250 MG PO SCH (23:03)
[2019-03-12] MEDS: Divalproex DR TAB(*) 500 MG PO SCH (23:04)
[2019-03-13 05:49] LABS: ABS Eosinophils 0.1 10^3/ul (0-0.6); ABS Lymphocytes 2.8 10^3/ul (1.0-4.8); ABS Monocytes 0.6 10^3/ul (0-0.8); ABS Neutrophils 2.3 10^3/ul (1.5-7.7); Eosinophil % 1.2 %; Hematocrit 38 % (42-52); Hemoglobin 13.3 g/dL (14.0-18.0); Lymphocyte % 48.9 %; Mean Corpuscular HGB Conc 35 g/dL (31-36); Mean Corpuscular Hemoglobin 29 pg (27-31); Mean Corpuscular Volume 84 fL (80-94); Mean Platelet Volume 8.5 fL (7.4-10.4); Nucleated Red Blood Cells % 0.2; Platelet Count 147 10^3/uL (150-450); Red Blood Count 4.55 10^6 /uL (4.18-5.48); Red Cell Distribution Width 14 % (10-15); White Blood Count 5.7 10^3/uL (3.5-10.8)
[2019-03-13 05:57] LABS: INR 1.05 (0.82-1.09)
[2019-03-13 06:05] LABS: Albumin/Globulin Ratio 1.6 (1-3); BUN/Creatinine Ratio 19.8 (8-20); Calcium 8.9 mg/dL (8.6-10.3); EGFR Non-African American 109.1 (>60); Globulin 2.5 g/dL (2-4); Total Bilirubin 0.4 mg/dL (0.2-1.0); Total Protein 6.5 g/dL (6.4-8.9)
[2019-03-13] MEDS: Divalproex DR TAB(*) 250 MG PO SCH ×2 (07:57→20:49)
[2019-03-13] MEDS: Divalproex DR TAB(*) 500 MG PO SCH ×2 (07:57→20:49)
[2019-03-13] MEDS: Sertraline* 50 MG TAB PO SCH (07:58)
[2019-03-13] MEDS ORDERED: levETIRAcetam 1000MG IVPREMIX* 1,000 MG/100 ML BAG IVPB ONE (09:16)
--- NOTE | 2019-03-13 09:24 | PN ---
Hospitalist Progress Note Date of Service: 03/13/19 CAT call called on Mr. Roman, who was found with seizure-like activity. Shortly after, event resolved without intervention. After the patient relays a history of 5 seizures yesterday, which is what prompted him to seek medical advice at the ER. He states that he takes Depakote and Klonopin for his seizure disorder, and that he has not missed a dose. B Mr. Roman has somewhat slurred speech, but is alert and oriented, answering questions appropriately; no wound in oropharynx; RRR without murmurs, rubs, clicks, gallops; breath sounds CTAB; moves all extremities Plan: Neurology is consulting and has ordered an EEG, which will be placed momentarily. They will forego loading on Keppra and monitor on EEG instead. Further interventions per neurology.
--- NOTE | 2019-03-13 12:18 | CONSULT ---
Consult Consult: Neurology Inpatient Consult Note Date of service: 03/13/2019 Reason for consult: Neurology was consulted by Dr. Aviles for seizures. The history was obtained by the patient and by extensively reviewing the electronic medical record. Chief complaint: I blacked out History of Present Illness: Mr. 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 The patient has been seeing Dr. Castellano since 1988, then Dr. Beckett over the past few years. The patient has been evaluated by several neurologists and had 8 routine EEGs since 2011. He is a patient of Dr. Beckett and Vimal Burnette. He was last seen by Vimal on 02/21/2019. 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 He presented to [facility] ED on 03/12/2019 with increase seizure activity. 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 He then suddenly fell to the ground. He does not recall what took place after. Staff members reported that he was having seizure-like activity in the hallway. All his episodes were witnessed. He had a total of 5 episodes yesterday and another episode in the hospital today. The events last 1-2 minutes. He does not feel confusion afterwards. He reports loss of awareness and consciousness. He does not remember what takes place during the events. He does not lose bowel or bladder functions. He does have a headache after the events. I contacted the patient's sister Brigitte who provided some of the history. According to some employees at [employer] who witnessed the event told Brigitte that the patient reported that he felt lightheaded. He had a real bad migraine. He walked to the break room. He was reported to appear pale. He was twitching and shaking quite a bit. He then went into a "seizure." Labs, Imaging and Other Diagnostics: Valproic acid level: 92. The previous valproic acid level has been in the 110's and one was at 131. 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 Routine EEG on 05/11/2015 that recorded an episode of unresponsiveness that was described as nonepileptic in nature. Routine EEG on 05/08/2018 that recorded an episode of "irregular movement of the arms and legs" with "muscle jerks." There was no change in the background; . The event was nonepileptic in nature. All remaining EEGs were reported as normal. Past Medical History: Intellectual disability, Epilepsy and dissociative impairment, MARISOL, myolclonus, anxiety, depression, PTSD, and conversion disorder diagnosed by Dr. Burns in 05/2018. Family History: The patient cannot provide a family history Social History: He lives in a custodial. He enjoys playing [employer] Duty on his Pose. 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 He denied any recent stressors. Medications: Divalproex TAB(*) [Ric KNOX TAB(*)] 500 mg PO BID 05/30/17 [History Confirmed 03/12/19] clonazePAM TAB(*) [Klonopin TAB(*)] 1 mg PO BID PRN MDD 2 mg 05/30/17 [History Confirmed 03/12/19] Acetaminophen TAB* [Tylenol TAB*] 650 mg PO Q4HR PRN 09/09/17 [History Confirmed 03/12/19] Cholecalciferol (Vitamin D3) [Vitamin D3] 2,000 unit PO DAILY 08/13/18 [History Confirmed 03/12/19] Diazepam TAB(NF) [Valium TAB(NF)] 2 mg PO DAILY PRN MDD 2mg 08/13/18 [History Confirmed 03/12/19] Ibuprofen TAB* [Advil TAB*] 400 mg PO Q8H PRN 08/13/18 [History Confirmed ] Multivit,Tx with Iron,Minerals [Thera-M] 1 tab PO DAILY 08/13/18 [History Confirmed 03/12/19] Neomycin/Bacitracin/Polymyxinb [Triple Antibiotic Ointment] 1 applic TOPICAL TID PRN 08/13/18 [History Confirmed 03/12/19] Sertraline* [Zoloft*] 150 mg PO DAILY 08/13/18 [History Confirmed 03/12/19] Divalproex DR TAB(*) [Ric KNOX TAB(*)] 250 mg PO BID #60 tab 01/10/19 [Rx Confirmed 03/12/19] Allergies No Known Allergies Allergy (Verified 01/28/19 15:56) Review of Systems: A 14-point ROS was obtained and otherwise negative except for what was mentioned in the HPI. Physical Exam: Vitals: Vital Signs - 12 hr Temp Pulse Resp BP Pulse Ox 03/13/19 08:32 79 120/76 03/13/19 08:00 20 03/13/19 07:15 98.4 F 58 20 105/70 98 03/13/19 03:17 97.9 F 68 16 103/59 97 General: well nourished, well developed. Alert, cooperative, no apparent distress, appears stated age. He has intentional myoclonus of the upper extremities bilaterally during the interview. Head: normocephalic, without obvious abnormality Eyes: conjunctivae/corneas clear Neck: supple, symmetrical. No carotid bruit. No lymphadenopathy. Lungs: clear to auscultation bilaterally, non-labored CV: regular rhythm, S1, S2 normal, radial pulses palpable Extremities: normal range of motion with no cyanosis. Skin: no skin lesions or lacerations Psych: affect-broad and normal mood. Easy to establish rapport. Neurological examination: Mental status: awake; alert and oriented to person, place, time, & general circumstances. Mild chronic dysarthria. Moderate psychomotor slowing. Cranial nerves: I: not tested II, III, IV, : normal confrontation B/L, Pupils midrange and reactive to light , normal consensual response; extraocular muscles are intact; no ptosis; no conjugate or asymmetrical nystagmus V 1/2/3: sensation is intact on forehead, cheeks, and jaw region VII: no facial droop; facial symmetry while smiling & wrinkling of forehead; tight lid closure VIII: able to hear throughout the history process IX & X: symmetric palatal elevation XI: normal strength against resistance XII: tongue is symmetrical & midline with no atrophy or fasciculations Motor (R/L): no abnormal movements, no pronator drift. Normal bulk and tone throughout. No fasciculations. Neck extension 5. Shoulder ROM is full. Shoulder abduction 5/5. Elbow flexion 5/5, extension 5/5. Wrist flexion 5/5, extension 5/5. Finger flexion 5/5, extension 5/5, abduction 5/5. Hip flexion 5/5, abduction 5/5. Knee flexion 5/5, extension 5/5. Ankle dorsiflexion 5/5, plantarflexion 5/5. Great toe extension 5/5. Reflexes R L Brachioradialis 2+ 2+ Biceps 2+ 2+ Triceps 3+ 3+ Patella 3+ 3+ Ankle 2+ 2+ Plantar flexor flexor Sensation is intact to light touch throughout. Normal vibration and proprioception at the great toes. Coordination: normal finger to nose and rapid alternating movements. Gait & Station: narrow based; normal stance and gait. No ataxia. Assessment: 1. Episodes of recurrent seizure like activity in a patient with intellectual disability and previously diagnosed psychogenic non-epileptic activity. Other differential diagnosis include convulsive syncope since he has preceding lightheadedness before the loss of consciousness. The patient is currently resting comfortably and is in no distress. He seems to be at baseline and has no complaints. He immediately regained awareness after the episode today and does not appear to be in a post-ictal state. I had checked on the patient twice since placing him on video EEG monitoring. He has not had any episodes. 2. History of migraine headache. He denied any headaches today. Recommendations: - Placed him on long-term video EEG for 4-6 hours today to record and characterize an event. - Continue Depakote 750 mg twice daily - Continue Klonopin 1 mg PO twice daily as needed for anxiety. - I agree with obtaining a TTE and checking orthostatic vitals - I don't recommend adding levetirecetam unless the patient is having electrographic seizures - Do not treat any seizure-like activity that resolves on it's own in less than 5 minutes. - Use Imitrex 100 mg PO x 1 with naproxen 600 mg x 1 for acute migraine headache - The patient ultimately needs to be hospitalized at a facility with long-term video EEG monitoring for at least 5-10 days, or if multiple episodes are recorded. This can be done at or [facility], and can be arranged as an outpatient. - Supportive care - [facility] [place]. Encourage outpatient follow-up for cognitive behavioral therapy. Neurology will continue to follow. Discussed the above recommendations with Otilia (patient's sister). Rakesh Loza MD Date: 03/13/19 Time: 11:55
--- NOTE | 2019-03-13 14:22 | ECHO ---
*[facility]* [place] [address] Fax #: [phone] Transthoracic Echocardiogram Patient: Felice Roman : 1985 Study Date: 03/13/2019 Age: 33 Gender: M HR: 65 bpm Height: 69 in /175.3 cm BSA: 1.98 m^2 Weight: 179.6 lb /81.6 kg BMI: 26.6 kg/m^2 *Balloon Seller: * Marisol Hoff [facility] *Referring Physician: * Sachin BurnetteReading Physician: * Garrett Klein MD Indications: Syncope. History: Seizures. Developmental delay. Conclusions Summary: - Impressions: The study is unchanged since the study of February 2004. - Left ventricle: Systolic function is normal. The estimated ejection fraction is 55-60%. - Mitral valve: There is trace regurgitation. - Tricuspid valve: There is trace to mild regurgitation. Study data: Transthoracic echocardiogram. Procedure: Transthoracic echocardiography was performed. Image quality was fair. The study was technically limited due to restricted patient mobility. Complete 2D, spectral Doppler, and color flow Doppler. Location: Bedside. Patient status: Inpatient. Patient room number: 444-01. The previous study was not available, so comparison is made to the report of February 2004. Rhythm: Normal sinus rhythm. Findings Left ventricle: The cavity size is normal. Wall thickness is normal. Systolic function is normal. The estimated ejection fraction is 55-60%. Wall motion is normal; there are no regional wall motion abnormalities. Left ventricular diastolic function parameters are normal. Right ventricle: The cavity size is mildly to moderately dilated. Systolic function is normal. Left atrium: The atrium is normal in size. Right atrium: The atrium is normal in size. Mitral valve: The leaflets are mildly thickened. There is no evidence of stenosis. There is trace regurgitation. Aortic valve: The valve is trileaflet. The leaflets are normal thickness. There is no evidence of stenosis. There is no significant regurgitation. Tricuspid valve: The leaflets are normal thickness. There is no evidence of stenosis. There is trace to mild regurgitation. Pulmonic valve: The leaflets are normal thickness. There is no evidence of stenosis. There is trace regurgitation. Aorta: The aorta is normal size. Aortic root: The aortic root is appears normal. Ascending aorta: The ascending aorta is appears normal. The aortic arch appears normal. Pericardium: There is no significant pericardial effusion. Pulmonary arteries: The main pulmonary artery is normal-sized. Systolic pressure can not be accurately estimated. Systemic veins: Inferior vena cava: The vessel is normal in size. There is (>= 50%) respiratory change in the IVC dimension. Measurements Left ventricle Value Ref Aortic valve Value Ref JAUN, LAX 4.4 cm 4.2 - 5.8 Viola diam, ED 1.7 cm ---- ESD, LAX 3.1 cm 2.5 - 4.0 Peak v, S 1.09 m/sec ---- FS, LAX 28 % 43 VTI, S 18.4 cm ---- PW, ED, LAX 0.8 cm 0.6 - 1.0 Mean grad, S 2.0 mm Hg ---- FS 29 % - 43 Peak grad, S 5.0 mm Hg ---- PW, ED 0.8 cm 0.6 - 1.0 LVOT/AV, VTI ratio 0.87 ---- E', lat viola, TDI 17.8 cm/sec >=10.0 E/e', lat viola, 5 Mitral valve Value Ref TDI Peak E 0.81 m/sec ---- E', med viola, TDI 12.4 cm/sec >=7.0 Peak A 0.32 m/sec -- -- E/e', med viola, 7 Decel time 254 ms ---- TDI Peak grad, D 2.7 mm Hg ---- E', avg, TDI 15.1 cm/sec Peak E/A ratio 2.5 ---- E/e', avg, TDI 5 <=14 Pulmonic valve Value Ref LVOT Value Ref Peak v, S 1.03 m/sec ---- Peak juanito, S 0.86 m/sec Peak grad, S 4.0 mm Hg ---- VTI, S 16.0 cm Mean grad, S 1 mm Hg Aortic root Value Ref Root diam 2.9 cm <3.7 Ventricular septum Value Ref IVS, ED 0.7 cm 0.6 - 1.0 Ascending aorta Value Ref AAo AP diam, S 2.8 cm ---- Right ventricle Value Ref JAUN, LAX 2.4 cm Aortic arch Value Ref JAUN minor ax, A4C (H) 4.0 cm 1.9 - 3.5 Arch diam 2.2 cm ---- mid Decending aorta Value Ref Left atrium Value Ref Jp peak juanito 1 m/sec ---- AP dim, ES 3.00 cm 3.00 - 4.00 Inferior vena cava Value Ref ML dim, A4C 4.3 cm Diam 1.9 cm ---- SI dim, A4C 4.5 cm Vol/bsa, ES, 1-p 19 ml/m^2 12 - 37 A4C Vol/bsa, ES, A/L 24 ml/m^2 16 - 34 Right atrium Value Ref SI dim, ES 4.5 cm 3.4 - 5.3 ML dim, ES, A4C 3.9 cm 2.6 - 4.4 Estimated RAP 3 mm Hg Legend: (L) and (H) davy values outside specified reference range. Prepared and electronically signed by Garrett Klein MD 03/13/2019 14:22
--- NOTE | 2019-03-13 14:53 | PN ---
Subjective Date of Service: 03/13/19 Interval History: I arrived after patient exhibited seizure like activity. Pt denies any numbness or tingling in extremities. Pt denies headache or visual changes. Denies any warning of seizure activity, "they just happen". Seizure activity in hospital has resolved without intervention. Family History: Unchanged from Admission Social History: Unchanged from Admission Past Medical History: Unchanged from Admission Objective Active Medications: Acetaminophen (Tylenol Tab*) 650 mg PO Q4H PRN PRN Reason: PAIN - MILD Clonazepam (Klonopin Tab(*)) 1 mg PO BID PRN PRN Reason: ANXIETY Divalproex Sodium (Depakote Dr Tab(*)) 500 mg PO BID [facility] Last Admin: 03/13/19 07:57 Dose: 500 mg Divalproex Sodium (Depakote Dr Tab(*)) 250 mg PO BID [facility] Last Admin: 03/13/19 07:57 Dose: 250 mg Sertraline HCl (Zoloft*) 150 mg PO DAILY [facility] Last Admin: 03/13/19 07:58 Dose: 150 mg Vital Signs - 8 hr 03/13/19 03/13/19 03/13/19 07:15 08:00 08:32 Temperature 98.4 F Pulse Rate 58 79 Respiratory 20 20 Rate Blood Pressure 105/70 120/76 (mmHg) O2 Sat by Pulse 98 Oximetry 03/13/19 11:15 Temperature 97.7 F Pulse Rate 67 Respiratory 16 Rate Blood Pressure 102/67 (mmHg) O2 Sat by Pulse 98 Oximetry Oxygen Devices in Use Now: None Appearance: Pt alert and oriented x 3. Laying in bed speaking to the Neurologist at bedside. Seizure activity has ceased at this time. Pt appears to be answering all questions appropriately. Pt is without distress. EEG being performed at this time. Eyes: PERRLA Ears/Nose/Mouth/Throat: NL Teeth, Lips, Gums Neck: NL Appearance and Movements; NL JVP, Trachea Midline, No Thyroid Enlargement, Masses Respiratory: Symmetrical Chest Expansion and Respiratory Effort, Clear to Auscultation Cardiovascular: NL Sounds; No Murmurs; No JVD, No Edema Abdominal: NL Sounds; No Tenderness; No Distention, No Hepatosplenomegaly Extremities: No Edema Skin: No Rash or Ulcers Neurological: Alert and Oriented x 3 Result Diagrams: 03/13/19 05:33 03/13/19 05:33 Microbiology and Other Data: Microbiology 03/13/19 08:45 Legionella Urinary Antigen - Final Urine Negative Legionella Antigen Streptococcus pneumoniae Ag Screen - Final Negative S. pneumo Antigen Assess/Plan/Problems-Billing Assessment: 33 year old male patient with history of pseudoseizures - Patient Problems (1) Conversion disorder (2) DVT prophylaxis Comment: low risk , ambulation (3) Intellectual disability (4) Seizure Comment: Appreciate neurology input. 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 psychiatry consult ordered. D/c'd Diana, no ativan advised. Cont Depakote and clonazepam for mood disorder.
--- NOTE | 2019-03-13 15:39 | PN ---
Progress Note - Progress Note Date of Service: 03/13/19 SOAP: The patient had an event on long-term video EEG monitoring that was consistent with psychogenic non-epileptic episode. Full EEG report was dictated. Please do not treat with Ativan or other anti-seizure medication. He needs psychiatric evaluation; although he does not have any known or recent stressors noted. The most important thing here is outpatient follow-up with psychiatry and cognitive behavioral therapy. I will sign off but please contact me for any questions. Rakesh Loza MD
--- NOTE | 2019-03-13 16:08 | CONSULT ---
Identification - Patient Identification Reason for Psychiatric Consultation: Incapacitating Symptoms -: Patient is a 33 year old, M admitted on 03/13/19. - MHU Identification Employment Status: Employed Hx Psychiatric Hospitalization: Yes History - Objective HPI: Psychiatry is asked to see this 33 y.o. single, intellectually disabled, employed, white male with a documented history of conversion disorder and affective problems due to repeat convulsive episodes, recorded during EEG monitoring, and confirmed to be non-epileptic in nature. The patient is known to this observer from previous consultations under similar circumstances. He is actively receiving mental health services at [facility] in [place], where he was supposed to have a follow up appointment this morning (03/13) at 9:30. On exam the patient is friendly and cooperative and I do not witness one of his spells, although I understand that they are characterized by intense shaking and unresponsiveness. The patient is asked about stressors which might explain his psychogenic seizures, but he is at a loss to name any. 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 He denies social, relational, academic, occupational, spiritual, familial or legal sources of stress. He seems somewhat unconcerned about his symptoms and denies depressed mood, anxiety , SI, HI or hallucinations. I left a message with his therapist at &, [facility], for collateral information and to reschedule Felice's appointment but have not heard back yet at this time. Exam Appearance: Well Developed/Nourished Hygiene: Normal Grooming: Well Kept Psychomotor Activities: Normal Exhibits Abnormal Movement: No Attitude and Relatedness: Cooperative - Speech Quality: Unpressured Latencies: Normal Quantity: Terse Patient's Decription of Mood: "Okay" Observed Affect: Fair Affect Consistent with: Euthymia Patient's Thought Process: Coherent Thought Content: No Passive Wish, No Suicidal Planning, No Homicidal Ideation, No Paranoid Ideation Experiencing Hallucinations: No, Sensorium is Clear Type of Hallucinations: Visual: No, Auditory: No, Command: No Level of Consciousness: Alert Orientation: Yes Intact, Yes Orientated to Time, Yes Orientated to Place, Yes Orientated to Person Impulse Control: Intact Insight and Judgement: Fair Impression - Impression Clinical Impression: 33 y.o. single, intellectually disabled, employed, white male with a history of conversion disorder and affective problems presents with repeat convulsive episodes, recorded during EEG monitoring, and confirmed to be non-epileptic in nature. Inpatient DSM-V Dx: F44.9 Merits Inpatient Hospitalization: No Plan - Treatment Plan Treatment Plan: Psychiatry recommends supportive care. The patient is psychiatrically cleared for discharge. He missed [facility] and this will need to be rescheduled with therapist Khai Galan. We recommend getting a valproic acid level and will f/u tomorrow (03/14). Continued Medication Management: Continue Outpt Medication Medications: Current Medications Acetaminophen (Tylenol Tab*) 650 mg PO Q4H PRN PRN Reason: PAIN - MILD Clonazepam (Klonopin Tab(*)) 1 mg PO BID PRN PRN Reason: ANXIETY Divalproex Sodium (Depakote Dr Tab(*)) 500 mg PO BID [facility] Last Admin: 03/13/19 07:57 Dose: 500 mg Divalproex Sodium (Depakote Dr Tab(*)) 250 mg PO BID [facility] Last Admin: 03/13/19 07:57 Dose: 250 mg Sertraline HCl (Zoloft*) 150 mg PO DAILY [facility] Last Admin: 03/13/19 07:58 Dose: 150 mg - Discharge Plan Discharge Plan: Outpatient Follow Up [facility]
--- NOTE | 2019-03-14 00:25 | EEG ---
ELECTROENCEPHALOGRAPHY: DATE OF STUDY: 03/13/19 - ROOM #444 ORDERED BY: Sachin Burnette NP CLINICAL PROBLEM: Mr. Roman is a 33-year-old man with a history of psychogenic nonepileptic seizures. This extended video EEG was obtained to evaluate for epileptiform abnormalities or electrographic seizures. Please note that the recording started at 9:39 and ended at 13:12. MEDICATIONS: 1. Depakote. 2. Zoloft. 3. Tylenol. 4. Klonopin. CLINICAL STATE: Awake and asleep. REPORT: The most prominent feature of this recording was recording a psychogenic nonepileptic event that took place at 13:04:46. The patient initially had a visitor or executive director of nursing pass by the room and ask if he was doing okay. At that time clinically, the patient began jerking of the body. He would have 1 or 2 jerks and then pause for a few seconds. At 13:05:00, the patient was hitting the seizure pads using both hands to call out for help or attention. At 13:05:56, the patient began having jerking-like movements. Initially, his eyes were open, then he was looking around to see who was coming in the room while he was tremoring and jerking of the extremities. He then began pelvic thrusting and was moved towards the left side to protect him from any injury. He was hitting the right arm towards the rails. At 13:08:07, the patient stopped shaking when a CAT call was activated. He was immediately looking around mostly towards the right side. At 13:08:53, the patient was communicating and answering questions appropriately. On EEG initially, when he was jerking, there were diffuse muscle artifacts associated with motor jerks. At approximately 13:05:56, there was a 5 Hz activity that is diffuse and that was associated and consistent with the patient's head and body movements at that frequency. There were no epileptiform discharges. At 13:08:53, the patient's background was completely normal with frequency of approximately 11 Hz. Otherwise, the waking background consisted of appropriate organization and clearly defined anterior-posterior voltage and frequency gradients. There was a well- defined posterior dominant rhythm of 11 Hz, which was symmetrical and showed normal reactivity. There was a diffuse low-voltage, faster beta frequency seen throughout the recording. Hyperventilation and photic stimulation were not performed. Single- electrode EKG showed normal sinus rhythm. Throughout the recording, there were no epileptiform discharges. Attenuation of the occipital rhythm accompanied drowsiness. The sleep background showed appropriate organization with well-defined spindles and vertex waves. The sleep transients showed appropriate morphology and are bilaterally synchronous and symmetrical. CLINICAL IMPRESSION: This is a normal awake and asleep EEG. There were no epileptiform discharges or electrographic seizures. The patient had an episode at 13:04:46 where he had generalized jerking of the body as well as a tremoring of the head, pelvic thrusting, forward and backward movement of the body, and moaning that continued until 13:08:07. The patient was immediately back to his normal self within seconds. There were no epileptiform discharges. There was rhythmic 5 Hz background during the episode consistent with a frequency related to the patient's movement. This episode is nonepileptic and consistent with the patient's history of psychogenic nonepileptic activity. Discontinue the video EEG recording. [id number]/[facility] #: [id number] CHARITO
[2019-03-14] MEDS: Sertraline* 50 MG TAB PO SCH (08:05)
[2019-03-14] MEDS: Divalproex DR TAB(*) 250 MG PO SCH (08:05)
[2019-03-14] MEDS: Divalproex DR TAB(*) 500 MG PO SCH (08:05)
[2019-03-14 12:16] VITALS: BP 107/64
--- NOTE | 2019-03-14 13:20 | DS ---
CC: Dr. Jameson; Dr. Artemio Beckett DISCHARGE SUMMARY: DATE OF ADMISSION: DATE OF DISCHARGE: 03/14/19 HISTORY OF PRESENT ILLNESS: This 33-year-old man was admitted with seizure and syncope. The history was detailed in admission note. He has had a number of these episodes. He has been diagnosed as having pseudoseizures before. He had video monitoring with EEG a number of years ago. He has a mood disorder as well. The patient was admitted to telemetry unit. He was seen in consultation by Dr. Loza. He had an echocardiogram which was unremarkable. It was recommended that he have a repeat testing with video monitoring EEG. I spoke to Dr. Beckett on the phone about this. He will arrange this as an outpatient. There was some confusion about his valproic acid dose, I noticed level here on arrival in the lab was 92.0. I spoke to a [facility] staff member about his medicine container which they fill every week. He lives in an independent apartment, however they have been giving him 500 mg in the morning and 250 mg at night. He has prescriptions for both of these at the pharmacy that I listed as twice a day, which was what was given here but that was actually double his dose at home. He was mildly sedated and his sister will watch him for a while at home, but I do not think he was too sedated to go home. He will take tomorrow off from work. He will receive his usual dose tonight. DISCHARGE DIAGNOSES: 1. Pseudoseizures with or without true seizures. 2. Mood disorder. DISCHARGE MEDICATIONS: 1. Divalproex 500 mg every morning and 250 mg at bed time. 2. Clonazepam 1 mg b.i.d. p.r.n. 3. Acetaminophen 650 mg every 4 hours p.r.n. 4. Vitamin D3 at 2000 units daily. 5. Ibuprofen 400 mg every 8 hours p.r.n. 6. Triple antibiotic as needed. 7. Sertraline 150 mg daily. CONDITION ON DISCHARGE: Stable. DISPOSITION ON DISCHARGE: Discharged home. CONDITION ON DISCHARGE: stable The patient has a work release to return to work on 03/16/19. [id number]/[facility] #: [id number] MTDD
--- NOTE | 2019-03-14 14:53 | PN ---
Progress Note - Progress Note Date of Service: 03/14/19 Note: Time spent on discharge including exam of patient, discussion with patient, sister, nurse, CM, Dr. Beckett, retail pharmacist, [facility] staff, review of EHR and preparation of discharge documents is 55 minutes.
--- NOTE | 2019-03-14 15:23 | PN ---
Subjective Date of Service: 03/14/19 Length of Stay: 2 Days Neurology is following for non-epileptic activity. Interval History: He has not had any seizures overnight. He rested well. I informed him that if he needs someone to talk to, we would be more than happy to listen. He does not need to have these spells anymore as we are all willing to help him. He smiled and nodded. I reviewed Dr. Burns's consult. Review of Systems: Denied CP, SOB, or palpitations. Family History: Unchanged from Admission Social History: Unchanged from Admission Past Medical History: Unchanged from Admission Objective Vital Signs 03/13/19 03/13/19 03/13/19 19:53 20:00 23:34 Temperature 97.8 F 97.7 F Pulse Rate 73 60 Respiratory 20 20 16 Rate Blood Pressure 110/71 114/70 (mmHg) O2 Sat by Pulse 98 99 Oximetry 03/14/19 03/14/19 03/14/19 03:07 07:15 08:00 Temperature 97.2 F 97.4 F Pulse Rate 56 54 Respiratory 17 18 18 Rate Blood Pressure 101/60 104/82 (mmHg) O2 Sat by Pulse 98 99 Oximetry 03/14/19 11:15 Temperature 97.1 F Pulse Rate 64 Respiratory 18 Rate Blood Pressure 107/64 (mmHg) O2 Sat by Pulse 93 Oximetry Intake and Output Last 24 Hours 03/12/19 03/13/19 03/14/19 03/15/19 06:59 06:59 06:59 06:59 Intake Total 0 600 240 Output Total 0 Balance 0 600 240 Weight 185 lb 9.6 oz Intake: Oral 0 600 240 Output: Urine 0 Other: Estimated Void Medium # Voids 2 Oxygen Devices in Use Now: None Neurology Exam: General: Well nourished, well developed, and in no acute distress. Developmental delay. HEENT: Normocephelic/atraumatic, sclera anicteric, mucous membranes moist Extremities: No clubbing, cyanosis, or edema Neurological Findings: Awake, alert, and oriented to person, place, and time. Mild psychomotor slowing. Speech: fluent without dysarthria, repetition intact Cranial Nerve: PERRL, EOM intact, VFF, no nystagmus, face symmetric bilaterally , facial sensation intact, hearing intact to finger rub bilaterally, palate elevates symmetrically, tongue midline, SCM and Trapezius s/s. Motor: s/s throughout, proximal and distal extremities x4 tone/bulk normal Sensation: intact to LT/PP bilaterally upper and lower extremities Deep Tendon Reflex: 2+ symmetric in the upper/lower extremities, Babinski - down going Finger to nose, rapid alternating movements intact without tremor, no dysdiadochokinesia Gait: intact with good arm swing and stride Result Diagrams: 03/13/19 05:33 03/13/19 05:33 Microbiology and Other Data: Microbiology 03/13/19 08:45 Legionella Urinary Antigen - Final Urine Negative Legionella Antigen Streptococcus pneumoniae Ag Screen - Final Negative S. pneumo Antigen Assessment/Plan 1. Psychogenic non-epileptic activity. He has not had any episodes since our conversation yesterday. He has no known stressors. Defer to outpatient counseling for cognitive behavioral therapy. I will sign off, but call me for any questions or concerns.
[2019-03-14] MEDS ORDERED: Divalproex DR TAB(*) 250 MG PO SCH (21:00)
[2019-03-15] MEDS ORDERED: Divalproex DR TAB(*) 500 MG PO SCH (09:00)
== END 2019-03-14 12:54 | disposition home or self-care (01) | DRG 101 ==
LOC: ED 17:37 → MEDTELE 20:14 → OBSVTOIN 03-13 11:00
PROVIDERS: ADMIT Hospitalist; ATTEND Internal Medicine
PROC: 4A10X4Z Monitoring of Central Nervous Electrical Activity, External Approach (ICD-10-PCS; principal; 2019-03-13)
DX: G40.89 Other seizures (principal); G31.84 Mild cognitive impairment of uncertain or unknown etiology; F79 Unspecified intellectual disabilities; G40.909 Epilepsy, unspecified, not intractable, without status epilepticus; G47.33 Obstructive sleep apnea (adult) (pediatric); F32.9 Major depressive disorder, single episode, unspecified; F43.10 Post-traumatic stress disorder, unspecified; F44.9 Dissociative and conversion disorder, unspecified; G43.909 Migraine, unspecified, not intractable, without status migrainosus; F41.0 Panic disorder [episodic paroxysmal anxiety]; F39 Unspecified mood [affective] disorder; R55 Syncope and collapse; Z79.899 Other long term (current) drug therapy
CPT/HCPCS: 36415; 70496; 70498; 71045; 80053; 80164; 84484; 85025; 85610; 87899; 93005; 93306; 95700; 95711; 99284; A9270-GY; G0378; Q9967

== ENCOUNTER 2019-03-29 14:29 | Emergency (ER) | payer MEDICARE, MEDICAID ==
[2019-03-29] MEDS ORDERED: NS 0.9% 1000 ML** 1,000 ML IV ONE (14:36)
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
[2019-03-29 15:25] LABS: ABS Lymphocytes 1.8 10^3/ul (1.0-4.8); ABS Monocytes 0.6 10^3/ul (0-0.8); ABS Neutrophils 2.3 10^3/ul (1.5-7.7); Hematocrit 37 % (42-52); Hemoglobin 13.2 g/dL (14.0-18.0); Lymphocyte % 37.3 %; Mean Corpuscular HGB Conc 36 g/dL (31-36); Mean Corpuscular Hemoglobin 29 pg (27-31); Mean Corpuscular Volume 83 fL (80-94); Mean Platelet Volume 8.1 fL (7.4-10.4); Nucleated Red Blood Cells % 0.1; Platelet Count 127 10^3/uL (150-450); Red Blood Count 4.51 10^6 /uL (4.18-5.48); Red Cell Distribution Width 14 % (10-15); White Blood Count 4.7 10^3/uL (3.5-10.8)
[2019-03-29 15:33] LABS: INR 1.03 (0.82-1.09)
[2019-03-29 15:39] LABS: Albumin 4.1 g/dL (3.2-5.2); Albumin/Globulin Ratio 1.8 (1-3); BUN/Creatinine Ratio 16.5 (8-20); Calcium 8.7 mg/dL (8.6-10.3); EGFR African American 114.7 (>60); EGFR Non-African American 94.8 (>60); Globulin 2.3 g/dL (2-4); Potassium 4.1 mmol/L (3.5-5.0); Total Bilirubin 0.4 mg/dL (0.2-1.0); Total Protein 6.4 g/dL (6.4-8.9)
[2019-03-29 16:22] LABS: Urine Appearance Clear; Urine Bilirubin Negative (Negative); Urine Blood Negative (Negative); Urine Color Yellow; Urine Glucose Negative (Negative); Urine Ketones Negative (Negative); Urine Nitrite Negative (Negative); Urine Protein Negative (Negative); Urine Specific Gravity 1.019 (1.010-1.030); Urine Urobilinogen Positive (Negative)
[2019-03-29 16:28] VITALS: BP 118/65
== END 2019-03-29 16:33 | disposition home or self-care (01) ==
LOC: ED 14:29
DX: R56.9 Unspecified convulsions (principal); F32.9 Major depressive disorder, single episode, unspecified; F41.0 Panic disorder [episodic paroxysmal anxiety]; Z79.899 Other long term (current) drug therapy
CPT/HCPCS: 36415; 80053; 80164; 81003; 82550; 83605; 83735; 85025; 85610; 93005; 96360; 99282